=== PATIENT | male | born 1935 | race Caucasian/White ===

== ENCOUNTER → 2016-10-22 | Outpatient (CLI) | payer MEDICARE, OTHER ==
[~2016-10-22] MED LIST: /GLYB5TA OR; COLA100C2 OR; FURO40TA2 OR; GLUC500T OR; GLYB2.5T6 OR; LISI10TA4 OR; MOTR200T4 PO; NIFEDIPINE PO; PEPC20TA2 OR; PERC5TAB8 OR; PERC7.5T8 OR; PLAV75TA2 OR; SIMV40TA2 OR
== END ==
LOC: M WUC 11:56
PROVIDERS: ATTEND Emergency Medicine
DX: E11.40 Type 2 diabetes mellitus with diabetic neuropathy, unspecified (principal)

== ENCOUNTER → 2017-04-10 | Outpatient (REF) | payer MEDICARE, OTHER | LOC: M LAB REF 16:54 | PROVIDERS: ATTEND Emergency Medicine | DX: N30.01 Acute cystitis with hematuria (principal) ==

== ENCOUNTER → 2018-07-23 | Outpatient (REF) | payer MEDICARE, OTHER ==
[2018-07-23 13:45] LABS: BASO # 0.1 10^3/uL (0.0-0.2); BASO % 0.8 % (0.0-1.0); EOS # 0.5 10^3/uL (0.0-0.50); EOS % 5.1 % (0.0-3.0); HEMATOCRIT 33.3 % (42.0-52.0); HEMOGLOBIN 11.2 g/dl (13.5-17.5); LYMPH # 1.2 10^3/uL (1.5-4.5); LYMPH % 12.8 % (24.0-44.0); MEAN CORPUSCULAR HEMOGLOBIN 29.8 pg (27.0-33.0); MEAN CORPUSCULAR HGB CONC 33.6 g/dl (32.0-36.5); MEAN CORPUSCULAR VOLUME 88.6 fl (80.0-96.0); MONO # 0.7 10^3/uL (0.0-0.8); MONO % 7.3 % (0.0-5.0); NEUTROPHILS # 7.2 10^3/uL (1.8-7.7); NEUTROPHILS % 73.8 % (36.0-66.0); PLATELET COUNT, AUTOMATED 278 10^3/uL (150-450); RED BLOOD COUNT 3.76 10^6/uL (4.30-6.10); WHITE BLOOD COUNT 9.7 10^3/uL (4.0-10.0)
[2018-07-23 13:55] LABS: ALBUMIN 3.4 GM/DL (3.2-5.2); BILIRUBIN,TOTAL 0.6 MG/DL (0.2-1.0); CALCIUM LEVEL 9.6 MG/DL (8.8-10.2); CHOLESTEROL RISK RATIO 2.95 (<5); CREATININE FOR GFR 3.56 MG/DL (0.70-1.30); GLOMERULAR FILTRATION RATE 17.6 (>35); POTASSIUM SERUM 4.9 MEQ/L (3.5-5.1)
[2018-07-23 14:33] LABS: MAU/CREAT RATIO 97.5 MCG/MG (0.0-30.0)
[2018-07-24 21:39] LABS: HEMOGLOBIN A1c 6.3 %
== END ==
LOC: M LAB REF 12:59
PROVIDERS: ATTEND Physician Assistant
DX: N18.3 Chronic kidney disease, stage 3 (moderate) (principal); E11.40 Type 2 diabetes mellitus with diabetic neuropathy, unspecified; E78.2 Mixed hyperlipidemia; E11.22 Type 2 diabetes mellitus with diabetic chronic kidney disease

== ENCOUNTER 2018-08-22 11:27 | Inpatient (IN) | payer MEDICARE, OTHER ==
[~2018-08-22] VITALS: Ht 177.8 cm; Wt 74.5 kg
[2018-08-22] MEDS ORDERED: DONETAB5 PO (11:46)
[2018-08-22] MEDS ORDERED: SPIR-10 PO (11:46)
[2018-08-22] MEDS ORDERED: GABA-845 PO (11:46)
[2018-08-22] MEDS ORDERED: OMEP10CASR PO (11:46)
[2018-08-22] MEDS ORDERED: MINO2.5T PO ×2 (11:46→15:01)
[2018-08-22] MEDS ORDERED: QUET1TAB7 PO (11:46)
[2018-08-22] MEDS ORDERED: ROCA0.25 PO (11:46)
[2018-08-22] MEDS ORDERED: FLUO60TA6 PO (11:46)
[2018-08-22] MEDS ORDERED: SENS60TA PO (11:46)
--- NOTE | 2018-08-22 12:01 | REP ---
CT Head without contrast HISTORY: Trauma COMPARISON: None Areas of decreased attenuation are present in the periventricular white matter. This represents small-vessel ischemic disease. There is no intraparenchymal hemorrhage, acute infarct, mass or midline shift. The ventricular system and cortical sulci are dilated consistent with mild volume loss. There is no extra cerebral collection. There is no fracture. The visualized sinuses are clear. A metallic density is present overlying the left globe. IMPRESSION: Impression 1. Small vessel ischemic disease. 2. Mild volume loss. Electronically Signed by Martínez Graham MD 08/22/2018 11:53 A
[2018-08-22 12:18] LABS: BASO # 0.1 10^3/uL (0.0-0.2); BASO % 0.5 % (0.0-1.0); EOS # 0.4 10^3/uL (0.0-0.50); HEMATOCRIT 30.7 % (42.0-52.0); HEMOGLOBIN 10.2 g/dl (13.5-17.5); MEAN CORPUSCULAR HEMOGLOBIN 29.9 pg (27.0-33.0); MEAN CORPUSCULAR HGB CONC 33.2 g/dl (32.0-36.5); MONO # 0.9 10^3/uL (0.0-0.8); NEUTROPHILS # 6.8 10^3/uL (1.8-7.7); NEUTROPHILS % 74.2 % (36.0-66.0); PLATELET COUNT, AUTOMATED 231 10^3/uL (150-450); RED BLOOD COUNT 3.41 10^6/uL (4.30-6.10); WHITE BLOOD COUNT 9.2 10^3/uL (4.0-10.0)
[2018-08-22 12:47] LABS: CALCIUM LEVEL 12.2 MG/DL (8.8-10.2); CREATININE FOR GFR 4.18 MG/DL (0.70-1.30); FREE T4 1.13 NG/DL (0.76-1.46); GLOMERULAR FILTRATION RATE 14.6 (>35); MAGNESIUM LEVEL 2.5 MG/DL (1.8-2.4); MB/CK RELATIVE INDEX 2.03 (< OR =4); POTASSIUM SERUM 4.4 MEQ/L (3.5-5.1); THYROID STIMULATING HORMONE 1.44 uIU/ML (0.358-3.740); TROPONIN I 0.03 NG/ML (< 0.10)
[2018-08-22] MEDS ORDERED: NS 1,000 ML IV ONE (13:00)
[2018-08-22 13:15] LABS: ALBUMIN 3.2 GM/DL (3.2-5.2); BILIRUBIN,DIRECT 0.2 MG/DL (0.0-0.2); BILIRUBIN,TOTAL 0.5 MG/DL (0.2-1.0)
--- NOTE | 2018-08-22 14:02 | REP ---
Renal ultrasound: Comparison is 02/10/2014. The right kidney measures 10.6 of 5.0-5.3 cm. Left kidney measures 11.5 x 5 point 5.9 cm. The kidneys are normal size. Renal cortical echogenicity is unremarkable. There is no hydronephrosis. There are no renal calculi. There are no solid renal masses. There is a left renal lower pole 3.1 cm simple cyst. This is unchanged. Bladder ultrasound: Limited views of the bladder demonstrate no bladder wall mass or polyp. The prostate is enlarged measuring 6.5 x 5.1 x 5.1 cm. Impression: Left renal lower pole cyst, unchanged. Enlarged prostate. Electronically Signed by Vidal Gu MD 08/22/2018 01:54 P
[2018-08-22] MEDS ORDERED: ATOR40TA75 PO (15:01)
[2018-08-22] MEDS ORDERED: OMEP40CA2 PO (15:01)
[2018-08-22] MEDS ORDERED: FURO40TA2 PO (15:01)
[2018-08-22] MEDS ORDERED: FLUO40CA PO (15:01)
[2018-08-22] MEDS ORDERED: GABA-843 PO (15:01)
[2018-08-22] MEDS ORDERED: FERR1TAB8 PO (15:01)
[2018-08-22] MEDS ORDERED: CLOP75TA2 PO (15:01)
[2018-08-22] MEDS ORDERED: POTA10808 PO (15:01)
[2018-08-22] MEDS ORDERED: DRON2.5C11 PO (15:01)
[2018-08-22] MEDS ORDERED: NITR4TASL SL (15:01)
[2018-08-22] MEDS ORDERED: LISI-672 PO (15:01)
--- NOTE | 2018-08-22 15:19 | REP ---
CHEST, SINGLE VIEW: Single view of the chest is performed. No acute infiltrate or pulmonary edema is seen. The heart appears normal in size. There is mild calcification and tortuosity of the thoracic aorta. Mediastinal silhouette is otherwise unremarkable. IMPRESSION: No acute infiltrate. Electronically Signed by Vidal Pina MD 08/22/2018 08:12 P
[2018-08-22] MEDS ORDERED: QUEtiapine FUMARATE 25 MG TAB PO PRN (16:15)
[2018-08-22] MEDS ORDERED: NITROGLYCERIN 0.4 MG SUBL TABLET SL PRN (16:15)
[2018-08-22] MEDS: NS 1,000 ML IV SCH (16:30)
--- NOTE | 2018-08-22 17:14 | REP ---
LEFT KNEE, FOUR VIEWS: HISTORY: Pain. There is no acute fracture or dislocation. There is severe narrowing of the lateral knee joint space and mild narrowing of the medial knee joint space. There is moderate narrowing of the patellofemoral joint space. Osteophytes are present on the femur, tibia, and patella. Chondrocalcinosis is present. IMPRESSION: Degenerative change as described above. Electronically Signed by Martínez Graham MD 08/23/2018 08:13 A
--- NOTE | 2018-08-22 17:18 | ECGEPIP ---
Stationary ECG Study [facility] - ED Test Date: 2018-08-22 Pat Name: MERVIN HANCOCK Department: Room: - Gender: M Operating Room Registered Nurse: CEM : [id number] Requested By: Raine Bermeo Order Number: [id number] Reading MD: Williams Montgomery Measurements Intervals [place] Rate: 51 P: TN: 0 QRS: -67 QRSD: 121 T: 74 QT: 440 QTc: 408 Interpretive Statements SINUS BRADYCARDIA WITH FIRST DEGREE AV BLCOK LEFT AXIS DEVIATION POSSIBLE ANTERIOR MYOCARDIAL INFARCTION, OF INDETERMINATE AGE MODERATE INTRAVENTRICULAR CONDUCTION DELAY NO PRIORS FOR COMPARISON Electronically Signed On 08-22-2018 17:18:22 EST by Williams Montgomery
--- NOTE | 2018-08-22 18:10 | HPE ---
DATE OF ADMISSION: 08/22/2018 This is an 83-year-old male with past medical history of hypertension, hyperlipidemia, diabetes, BPH, chronic kidney disease (CKD) IV, advanced dementia who presents to the emergency room with frequent falls that he has been having over the past couple of weeks. The reason for bringing the patient to the emergency room (ER) today is because he actually fell and hit his head very hard on the bedroom door. There was no episode of syncope as per the family, just that the falls have been more frequent over the last few weeks. His appetite has also been very poor. They say that if they do not literally put the spoon or the straw in his mouth, he will not eat or drink. In the ER he had a CT of the head which was negative for any bleed; however, brain natriuretic peptide (BNP) showed the patient had acute kidney injury (LEXUS) on CKD with a creatinine of 4.2 and an elevated calcium of 12.2. He was started on intravenous (IV) fluids, and all the history I received was from his daughter. He is too advanced in his dementia to give any meaningful history. He will be admitted for further management. PAST MEDICAL HISTORY: 1. Hypertension. 2. Diabetes. 3. Hyperlipidemia. 4. Coronary artery disease status post percutaneous coronary intervention (PCI) in 2000 and 2001. 5. History of BPH. ALLERGIES: He has no known drug allergies. FAMILY HISTORY: Cannot be assessed. He is demented. SOCIAL HISTORY: Cannot be assessed. He is demented. HOME MEDICATIONS: - atorvastatin 40 mg orally daily - calcitriol 0.5 mcg orally daily - cinacalcet 60 mg orally five times a week - Plavix 75 mg orally daily - donepezil 5 mg orally daily - dronabinol 2.5 mg orally twice daily - ferrous sulfate 325 mg orally daily - fluoxetine 40 mg orally daily - Lasix 40 mg orally daily - gabapentin 300 mg orally daily - lisinopril 30 mg orally daily - minoxidil 5 mg orally twice daily - nitroglycerine 0.4 mg sublingual every 5 minutes times three for chest pain - omeprazole 40 mg orally daily - potassium citrate 10 mEq orally daily - quetiapine 25 mg orally daily as needed - Aldactone 25 mg orally daily REVIEW OF SYSTEMS: Cannot be assessed. Patient is demented. VITAL SIGNS: Blood pressure 176/74, heart rate is 52, regular, respiratory rate is 16, oxygen saturation is 98% on room air. HEAD: There is a small skin tear in the occiput of his head. Dry mucous membranes. NECK: Supple. No jugular venous distention (JVD). LUNGS: Clear to auscultation. HEART: S1, S2 audible. No murmurs appreciated. ABDOMEN: Soft. Positive bowel sounds. No pedal edema. SKIN: As mentioned, there is a skin abrasion noted in the back of his head. NEUROLOGIC: Patient is awake. He is not alert or oriented. LABORATORY DATA: Sodium 138, potassium 4.4, chloride 101, CO2 of 33, BUN 45, creatinine 4.18, glucose is 129, calcium is 12.2, magnesium 2.5. Troponin 0.03. Albumin is 3.2. TSH is 1.4. Intact PTH is 29. WBC is 9.2, hemoglobin is 10.2, hematocrit 30.7, platelets are 331,000. Renal ultrasound shows no evidence of hydronephrosis. CT of the head was negative for any bleed. Chest x-ray showed no acute infiltrates. IMPRESSION: 1. Falls. 2. Debility. 3. Acute kidney injury (LEXUS). 4. Hypercalcemia. PLAN: Patient will be admitted to the medical/surgical floor. Will continue intravenous (IV) fluids with normal saline at 100 an hour. The hypercalcemia etiology is undetermined at this time. I will send a 125-dihydroxy vitamin D level and monitor calcium trends. If it does not come down, will have to start calcitonin and get nephrology on board. Will have physical therapy (PT)/occupational therapy (OT) evaluate him in the morning for his falls. He will likely need rehabilitation to jail facility (SNF) placement. I am going to continue all his preadmission medication except for his diuretics and will continue his care in the medical/surgical floor.
[2018-08-22 18:40] VITALS: BP 156/71
[2018-08-22 21:00] VITALS: BP 131/64
[2018-08-22] MEDS: DRONABINOL 2.5 MG CAP (MARINOL) PO SCH (21:05)
[2018-08-22] MEDS: MINOXIDIL 2.5 MG TAB PO SCH (21:05)
[2018-08-22 21:15] LABS: TOTAL 25(OH) VITAMIN D 31.1 NG/ML (30.0-100.0)
[2018-08-22 21:30] VITALS: BP 151/85
[2018-08-23] MEDS: NS 1,000 ML IV SCH ×3 (02:30→21:26)
[2018-08-23 06:00] VITALS: BP 164/70
[2018-08-23 06:44] LABS: ALBUMIN 2.8 GM/DL (3.2-5.2); BILIRUBIN,TOTAL 0.5 MG/DL (0.2-1.0); CALCIUM LEVEL 10.5 MG/DL (8.8-10.2); CREATININE FOR GFR 3.88 MG/DL (0.70-1.30); GLOMERULAR FILTRATION RATE 15.9 (>35); POTASSIUM SERUM 4.2 MEQ/L (3.5-5.1); TOTAL PROTEIN 5.4 GM/DL (6.4-8.2)
[2018-08-23 08:45] LABS: HEMOGLOBIN 9.5 g/dl (13.5-17.5); MEAN CORPUSCULAR HEMOGLOBIN 30.3 pg (27.0-33.0); MEAN CORPUSCULAR HGB CONC 33.9 g/dl (32.0-36.5); MEAN CORPUSCULAR VOLUME 89.2 fl (80.0-96.0); PLATELET COUNT, AUTOMATED 222 10^3/uL (150-450); RED BLOOD COUNT 3.14 10^6/uL (4.30-6.10); WHITE BLOOD COUNT 8.4 10^3/uL (4.0-10.0)
[2018-08-23 09:28] LABS: CALCIUM LEVEL 10.9 MG/DL (8.8-10.2); CREATININE FOR GFR 3.88 MG/DL (0.70-1.30); GLOMERULAR FILTRATION RATE 15.9 (>35); MAGNESIUM LEVEL 2.2 MG/DL (1.8-2.4); POTASSIUM SERUM 4.3 MEQ/L (3.5-5.1)
[2018-08-23] MEDS: CLOPIDOGREL 75 MG TAB PO SCH (10:26)
[2018-08-23] MEDS: FERROUS SULFATE 325MG TAB PO SCH (10:26)
[2018-08-23] MEDS: FLUoxetine 20 MG CAP PO SCH (10:26)
[2018-08-23] MEDS: GABAPENTIN 300 MG CAP PO SCH (10:26)
[2018-08-23] MEDS: OMEPRAZOLE 20 MG CAP PO SCH (10:26)
[2018-08-23] MEDS: ATORVASTATIN 20 MG TAB PO SCH (10:27)
[2018-08-23] MEDS: MINOXIDIL 2.5 MG TAB PO SCH ×3 (13:59→21:26)
[2018-08-23] MEDS: DRONABINOL 2.5 MG CAP (MARINOL) PO SCH ×2 (13:59→21:25)
[2018-08-23 14:00] VITALS: BP 170/90
[2018-08-23] MEDS: CINACALCET 30 MG TAB (SENSIPAR) PO SCH (14:59)
[2018-08-23] MEDS: CALCITRIOL 0.25 MCG CAP (S0169) PO SCH (14:59)
[2018-08-23 17:17] VITALS: BP 140/80
[2018-08-23 22:00] VITALS: BP 147/82
--- NOTE | 2018-08-23 22:06 | IPN ---
DATE: 08/23/2018 SUBJECTIVE: The patient is seen and examined in the room with the patient's daughter and son-in-law. The patient is a poor historian, not fully oriented. Most of the questions obtained from the family member. The patient was found on the floor on the day of admission. The patient does not remember whether he had lost of consciousness or not at the moment. It was an unwitnessed event. According to the family members, the patient has been having worsening mental status, also frequent falls for the past three weeks. The patient has had multiple falls on a daily basis. The patient was noted to have very poor oral intake. OBJECTIVE: VITAL SIGNS: Temperature is 98.7, pulse of 88, respirations 18, blood pressure 164/70, pulse oximetry 97% on room air. GENERAL: The patient is alert and awake. The patient is not oriented. HEENT: There is some marked trauma on the top of the skull. No active bleeding. No open wounds. There is no erythema on the infected site. CARDIOVASCULAR: Positive S1, S2. Regular rate. LUNGS: Clear to auscultation bilaterally. ABDOMEN: Soft, nontender, not distended. Bowel sounds are present. EXTREMITIES: No edema appreciated. LABORATORY DATA: White blood count (WBC) 8.4, hemoglobin 11.5, hematocrit 28, platelet count is 222. Sodium is 141, potassium is 4.3, chloride is 106, carbon dioxide 29, BUN is 45, creatinine is 3.8. Glomerular filtration rate (GFR) is 15.9. Fasting glucose is 91. Calcium is 10.9. Magnesium is 2.2. ASSESSMENT AND PLAN: 1. Acute on chronic mental status change. The patient do have very advanced dementia according to the family member. The patient had started to demonstrate rapid mental deterioration in the last three weeks, which resulted in frequent falls. Will continue to look for possible correctable causes. 2. Acute kidney injury. Clinically, the patient demonstrates significant dehydration based on the history given by family member and clinical presentations. The patient's oriented has been extremely poor. Will start the patient on IV fluid up to moderate kidney function. At the baseline, the patient has chronic kidney disease (CKD) stage IV. 3. Diabetes. Currently, the patient does not demonstrate any significant hyperglycemia. Will continue to monitor the patient. The patient do have a very poor oral intake at this moment. 4. Benign prostatic hypertrophy (BPH). 5. Hypertension due to acute on chronic renal failure. The patient is on lisinopril, spironolactone, Lasix will be on hold. 6. Deep vein thrombosis (DVT) prophylaxis on DIANNE compression. MTDD
[2018-08-24 06:00] VITALS: BP 144/78
[2018-08-24 06:04] LABS: HEMATOCRIT 28.2 % (42.0-52.0); HEMOGLOBIN 9.6 g/dl (13.5-17.5); MEAN CORPUSCULAR HEMOGLOBIN 30.1 pg (27.0-33.0); MEAN CORPUSCULAR VOLUME 88.4 fl (80.0-96.0); PLATELET COUNT, AUTOMATED 211 10^3/uL (150-450); RED BLOOD COUNT 3.19 10^6/uL (4.30-6.10); WHITE BLOOD COUNT 8.4 10^3/uL (4.0-10.0)
[2018-08-24 06:37] LABS: CALCIUM LEVEL 10.4 MG/DL (8.8-10.2); CREATININE FOR GFR 3.51 MG/DL (0.70-1.30); GLOMERULAR FILTRATION RATE 17.9 (>35); MAGNESIUM LEVEL 2.1 MG/DL (1.8-2.4)
[2018-08-24] MEDS: CALCITRIOL 0.25 MCG CAP (S0169) PO SCH (08:21)
[2018-08-24] MEDS: FERROUS SULFATE 325MG TAB PO SCH (08:21)
[2018-08-24] MEDS: FLUoxetine 20 MG CAP PO SCH (08:21)
[2018-08-24] MEDS: OMEPRAZOLE 20 MG CAP PO SCH (08:21)
[2018-08-24] MEDS: DRONABINOL 2.5 MG CAP (MARINOL) PO SCH ×2 (08:21→20:30)
[2018-08-24] MEDS: GABAPENTIN 300 MG CAP PO SCH (08:21)
[2018-08-24] MEDS: CLOPIDOGREL 75 MG TAB PO SCH (08:21)
[2018-08-24] MEDS: ATORVASTATIN 20 MG TAB PO SCH (08:21)
[2018-08-24] MEDS: CINACALCET 30 MG TAB (SENSIPAR) PO SCH (08:21)
[2018-08-24] MEDS: MINOXIDIL 2.5 MG TAB PO SCH ×2 (08:22→20:39)
[2018-08-24] MEDS: NS 1,000 ML IV SCH ×2 (08:30→20:40)
[2018-08-24 14:00] VITALS: BP 156/88
--- NOTE | 2018-08-24 19:39 | IPNPDOC ---
Text Note Date of Service The patient was seen on 08/24/18. NOTE SUBJECTIVE: The patient is seen and examined in the room with the patient's daughter and son-in-law. The patient is not fully oriented. Patient has no appetite. According to family members, patient requires monitoring and feeding during meal time otherwise patient will not eat meals by himself. They understand patient needs custodial in the rat ex[facility]. OBJECTIVE: VITAL SIGNS: Listed below. GENERAL: The patient is alert and awake. The patient is not oriented. HEENT: No active bleeding. No open wounds. CARDIOVASCULAR: Positive S1, S2. Regular rate. LUNGS: Clear to auscultation bilaterally. ABDOMEN: Soft, nontender, not distended. Bowel sounds are present. EXTREMITIES: No edema appreciated. LABORATORY DATA: Listed below. ASSESSMENT AND PLAN: #. Acute on chronic mental status change. - At baseline, patient has very advanced dementia according to the family member. The patient has demonstrated rapid mental deterioration in the last three weeks, which resulted in frequent falls. - UA is negative. CT head is negative. Will continue to look for possible correctable causes. #. Acute kidney injury. - Clinically, the patient demonstrates significant dehydration based on the history given by family member. The patient's oriented has been extremely poor. Will start the patient on IV fluid. At the baseline, the patient has chronic kidney disease (CKD) stage IV. #. Diabetes. Currently, the patient does not demonstrate any significant hyperglycemia. Will continue to monitor the patient. The patient do have a very poor oral intake at this moment. #. Benign prostatic hypertrophy (BPH). #. Hypertension due to acute on chronic renal failure. The patient is on lisinopril, spironolactone, Lasix will be on hold. #. Deep vein thrombosis (DVT) prophylaxis on DIANNE compression. VS,Fishbone, I+O VS, Fishbone, I+O Laboratory Tests 08/24/18 05:50 Red Blood Count 3.19 L, Mean Corpuscular Volume 88.4, Mean Corpuscular Hemoglobin 30.1, Mean Corpuscular Hemoglobin Concent 34.0, Red Cell Distribution Width 12.9, Calcium Level 10.4 H Vital Signs Date Time Temp Pulse Resp B/P (MAP) Pulse Ox O2 Delivery O2 Flow Rate FiO2 08/24/18 14:00 97.7 66 18 156/88 (110) 92 2/13/19 11:43 Room Air I&O- Last 24 Hours up to 6 AM 08/24/18 06:00 Intake Total 1710 ml Output Total 2050 ml Balance -340 ml CORINNE MEZA DO Aug 24, 2018 19:39
[2018-08-24 22:00] VITALS: BP 188/84
[2018-08-25] VITALS: BP 175/75
[2018-08-25 06:00] VITALS: BP 178/88
[2018-08-25 06:08] LABS: HEMATOCRIT 26.4 % (42.0-52.0); HEMOGLOBIN 9.1 g/dl (13.5-17.5); MEAN CORPUSCULAR HEMOGLOBIN 29.8 pg (27.0-33.0); MEAN CORPUSCULAR HGB CONC 34.5 g/dl (32.0-36.5); MEAN CORPUSCULAR VOLUME 86.6 fl (80.0-96.0); PLATELET COUNT, AUTOMATED 231 10^3/uL (150-450); RED BLOOD COUNT 3.05 10^6/uL (4.30-6.10); WHITE BLOOD COUNT 8.1 10^3/uL (4.0-10.0)
[2018-08-25 06:35] LABS: CALCIUM LEVEL 10.1 MG/DL (8.8-10.2); CREATININE FOR GFR 3.13 MG/DL (0.70-1.30); GLOMERULAR FILTRATION RATE 20.4 (>35); MAGNESIUM LEVEL 1.8 MG/DL (1.8-2.4); POTASSIUM SERUM 3.7 MEQ/L (3.5-5.1)
[2018-08-25] MEDS: CALCITRIOL 0.25 MCG CAP (S0169) PO SCH (09:03)
[2018-08-25] MEDS: ATORVASTATIN 20 MG TAB PO SCH (09:04)
[2018-08-25] MEDS: FLUoxetine 20 MG CAP PO SCH (09:04)
[2018-08-25] MEDS: GABAPENTIN 300 MG CAP PO SCH (09:04)
[2018-08-25] MEDS: CLOPIDOGREL 75 MG TAB PO SCH (09:04)
[2018-08-25] MEDS: OMEPRAZOLE 20 MG CAP PO SCH (09:04)
[2018-08-25] MEDS: FERROUS SULFATE 325MG TAB PO SCH (09:04)
[2018-08-25] MEDS: MINOXIDIL 2.5 MG TAB PO SCH ×2 (09:05→21:30)
[2018-08-25] MEDS: DRONABINOL 2.5 MG CAP (MARINOL) PO SCH ×2 (09:05→21:30)
[2018-08-25] MEDS: NS 0.45% 1,000 ML IV SCH ×3 (10:31→21:30)
[2018-08-25 14:00] VITALS: BP 150/74
--- NOTE | 2018-08-25 18:51 | IPNPDOC ---
Text Note Date of Service The patient was seen on 08/25/18. NOTE SUBJECTIVE: The patient is seen and examined in the room. Patient knows he is in hospital but he could not recall the name of hospital, date or name of president. No acute event is reported. OBJECTIVE: VITAL SIGNS: Listed below. GENERAL: The patient is alert and awake. Comfortable. Not oriented. HEENT: No active bleeding. No open wounds. CARDIOVASCULAR: Positive S1, S2. Regular rate. LUNGS: Clear to auscultation bilaterally. ABDOMEN: Soft, nontender, not distended. Bowel sounds are present. EXTREMITIES: No edema appreciated. LABORATORY DATA: Listed below. ASSESSMENT AND PLAN: #. Acute on chronic mental status change. - At baseline, patient has very advanced dementia according to the family members. The patient has demonstrated rapid mental deterioration in the last three weeks prior to admission, which resulted in frequent falls. - UA is negative. CT head is negative. Will continue to look for possible correctable causes. - Family members wish for jail placement. #. Acute kidney injury on chronic kidney disease. - At the baseline, the patient has chronic kidney disease (CKD) stage IV. - The patient demonstrates significant dehydration based on the history given by family member and clinical examination. The patient's oriented has been extremely poor. On IV fluid. #. Diabetes. - No significant hyperglycemia. The patient do have a very poor oral intake at this moment. - Will be on sliding scale, consistent carbohydrate diet, hypoglycemia protocol. #. Benign prostatic hypertrophy (BPH). #. Hypertension - Due to acute on chronic renal failure. Lisinopril, spironolactone and Lasix are on hold. #. Deep vein thrombosis (DVT) prophylaxis on DIANNE compression. VS,Fishbone, I+O VS, Fishbone, I+O Laboratory Tests 08/25/18 05:40 Red Blood Count 3.05 L, Mean Corpuscular Volume 86.6, Mean Corpuscular Hemoglobin 29.8, Mean Corpuscular Hemoglobin Concent 34.5, Red Cell Distribution Width 12.9, Calcium Level 10.1 Vital Signs Date Time Temp Pulse Resp B/P (MAP) Pulse Ox O2 Delivery O2 Flow Rate FiO2 08/25/18 14:00 97.8 58 20 150/74 (99) 96 08/22/18 11:43 Room Air I&O- Last 24 Hours up to 6 AM 2/16/19 06:00 Intake Total 1840 ml Output Total 500 ml Balance 1340 ml CORINNE MEZA DO Aug 25, 2018 18:51
[2018-08-25] MEDS ORDERED: GLUCOSE 4 GM CHEW TABLET PO PRN (19:00)
[2018-08-25] MEDS ORDERED: GLUCAGON FOR INJ 1 MG VIAL (J1610) SC PRN (19:00)
[2018-08-25] MEDS ORDERED: DEXTROSE 50% 50 ML SYRINGE IV PRN (19:00)
[2018-08-25] MEDS: HumaLOG INSULIN (NovoLOG) PER UNIT SC SCH (21:00)
[2018-08-25 22:00] VITALS: BP 168/60
[2018-08-26 06:00] VITALS: BP 164/76
[2018-08-26 07:25] LABS: HEMATOCRIT 24.4 % (42.0-52.0); HEMOGLOBIN 8.3 g/dl (13.5-17.5); MEAN CORPUSCULAR HEMOGLOBIN 29.7 pg (27.0-33.0); MEAN CORPUSCULAR VOLUME 87.5 fl (80.0-96.0); PLATELET COUNT, AUTOMATED 211 10^3/uL (150-450); RED BLOOD COUNT 2.79 10^6/uL (4.30-6.10); WHITE BLOOD COUNT 6.7 10^3/uL (4.0-10.0)
[2018-08-26 07:52] LABS: CALCIUM LEVEL 9.8 MG/DL (8.8-10.2); GLOMERULAR FILTRATION RATE 21.4 (>35); MAGNESIUM LEVEL 1.8 MG/DL (1.8-2.4)
[2018-08-26] MEDS: CALCITRIOL 0.25 MCG CAP (S0169) PO SCH (08:35)
[2018-08-26] MEDS: GABAPENTIN 300 MG CAP PO SCH (08:36)
[2018-08-26] MEDS: DRONABINOL 2.5 MG CAP (MARINOL) PO SCH ×2 (08:36→21:22)
[2018-08-26] MEDS: FERROUS SULFATE 325MG TAB PO SCH (08:36)
[2018-08-26] MEDS: MINOXIDIL 2.5 MG TAB PO SCH ×2 (08:36→21:22)
[2018-08-26] MEDS: FLUoxetine 20 MG CAP PO SCH (08:36)
[2018-08-26] MEDS: CLOPIDOGREL 75 MG TAB PO SCH (08:36)
[2018-08-26] MEDS: OMEPRAZOLE 20 MG CAP PO SCH (08:36)
[2018-08-26] MEDS: ATORVASTATIN 20 MG TAB PO SCH (08:37)
[2018-08-26] MEDS: HumaLOG INSULIN (NovoLOG) PER UNIT SC SCH ×4 (08:37→21:00)
[2018-08-26] MEDS: AMOXICILLIN 500 MG CAP PO SCH ×2 (10:44→21:22)
[2018-08-26 14:00] VITALS: BP 142/71
--- NOTE | 2018-08-26 16:57 | IPNPDOC ---
Text Note Date of Service The patient was seen on 08/26/18. NOTE SUBJECTIVE: The patient is seen and examined in the room with his daughter. Patient remembers the name of hospital but he does not remember the year and month and name of president. He is more awake and alert. Oral intake is still poor. OBJECTIVE: VITAL SIGNS: Listed below. GENERAL: The patient is alert and awake. Comfortable. Not oriented. HEENT: No active bleeding. No open wounds. CARDIOVASCULAR: Positive S1, S2. Regular rate. LUNGS: Clear to auscultation bilaterally. ABDOMEN: Soft, nontender, not distended. Bowel sounds are present. EXTREMITIES: No edema appreciated. LABORATORY DATA: Listed below. ASSESSMENT AND PLAN: #. Acute on chronic mental status change. - At baseline, patient has very advanced dementia according to the family members. The patient has demonstrated rapid mental deterioration in the last three weeks prior to admission, which resulted in frequent falls. - CT head is negative. Urine culture is positive for Aerococcus Urinae. Start antibiotic. - Family members wish for prison placement. #. Acute kidney injury on chronic kidney disease. - At the baseline, the patient has chronic kidney disease (CKD) stage IV. - The patient demonstrates significant dehydration based on the history given by family member and clinical examination. The patient's oriented has been extremely poor. On IV fluid. #. Diabetes. - No significant hyperglycemia. The patient do have a very poor oral intake at this moment. - Will be on sliding scale, consistent carbohydrate diet, hypoglycemia protocol. #. Benign prostatic hypertrophy (BPH). #. Hypertension - Due to acute on chronic renal failure. Lisinopril, spironolactone and Lasix are on hold. #. Deep vein thrombosis (DVT) prophylaxis on DIANNE compression. VS,Fishbone, I+O VS, Fishbone, I+O Laboratory Tests 08/26/18 06:46 Calcium Level 9.8 08/26/18 06:47 Red Blood Count 2.79 L, Mean Corpuscular Volume 87.5, Mean Corpuscular Hemoglobin 29.7, Mean Corpuscular Hemoglobin Concent 34.0, Red Cell Distribution Width 13.2 Vital Signs Date Time Temp Pulse Resp B/P (MAP) Pulse Ox O2 Delivery O2 Flow Rate FiO2 08/26/18 14:00 98.3 50 16 142/71 (94) 97 08/22/18 11:43 Room Air I&O- Last 24 Hours up to 6 AM 08/26/18 06:00 Intake Total 2040 ml Output Total 0 ml Balance 2040 ml CORINNE MEZA DO Aug 26, 2018 16:57
[2018-08-26] MEDS: NS 0.45% 1,000 ML IV SCH (17:18)
[2018-08-26 22:00] VITALS: BP 170/68
[2018-08-27] MEDS: NS 0.45% 1,000 ML IV SCH ×3 (00:15→18:18)
[2018-08-27 06:00] VITALS: BP 168/80
[2018-08-27 06:44] LABS: HEMATOCRIT 23.8 % (42.0-52.0); HEMOGLOBIN 8.2 g/dl (13.5-17.5); MEAN CORPUSCULAR HEMOGLOBIN 29.7 pg (27.0-33.0); MEAN CORPUSCULAR HGB CONC 34.5 g/dl (32.0-36.5); MEAN CORPUSCULAR VOLUME 86.2 fl (80.0-96.0); PLATELET COUNT, AUTOMATED 216 10^3/uL (150-450); RED BLOOD COUNT 2.76 10^6/uL (4.30-6.10); WHITE BLOOD COUNT 6.8 10^3/uL (4.0-10.0)
[2018-08-27 07:05] LABS: CALCIUM LEVEL 9.6 MG/DL (8.8-10.2); CREATININE FOR GFR 2.65 MG/DL (0.70-1.30); GLOMERULAR FILTRATION RATE 24.7 (>35); MAGNESIUM LEVEL 1.9 MG/DL (1.8-2.4); POTASSIUM SERUM 3.6 MEQ/L (3.5-5.1)
[2018-08-27] MEDS: HumaLOG INSULIN (NovoLOG) PER UNIT SC SCH ×4 (07:30→20:36)
[2018-08-27] MEDS: OMEPRAZOLE 20 MG CAP PO SCH (09:22)
[2018-08-27] MEDS: ATORVASTATIN 20 MG TAB PO SCH (09:22)
[2018-08-27] MEDS: CLOPIDOGREL 75 MG TAB PO SCH (09:22)
[2018-08-27] MEDS: CINACALCET 30 MG TAB (SENSIPAR) PO SCH (09:23)
[2018-08-27] MEDS: AMOXICILLIN 500 MG CAP PO SCH ×2 (09:23→20:35)
[2018-08-27] MEDS: FLUoxetine 20 MG CAP PO SCH (09:23)
[2018-08-27] MEDS: FERROUS SULFATE 325MG TAB PO SCH (09:23)
[2018-08-27] MEDS: GABAPENTIN 300 MG CAP PO SCH (09:23)
[2018-08-27] MEDS: CALCITRIOL 0.25 MCG CAP (S0169) PO SCH (09:23)
[2018-08-27] MEDS: DRONABINOL 2.5 MG CAP (MARINOL) PO SCH ×2 (09:26→20:35)
[2018-08-27] MEDS: MINOXIDIL 2.5 MG TAB PO SCH ×2 (09:26→20:36)
--- NOTE | 2018-08-27 13:59 | IPNPDOC ---
Text Note Date of Service The patient was seen on 08/27/18. NOTE SUBJECTIVE: The patient is seen and examined in the room with his daughter. Patient is more awake and alert. Patient remember the place and the date but he could not remember the name of president. His oral intake is still not optimal. OBJECTIVE: VITAL SIGNS: Listed below. GENERAL: The patient is alert and awake. Comfortable. Not oriented. HEENT: No active bleeding. No open wounds. CARDIOVASCULAR: Positive S1, S2. Regular rate. LUNGS: Clear to auscultation bilaterally. ABDOMEN: Soft, nontender, not distended. Bowel sounds are present. EXTREMITIES: No edema appreciated. LABORATORY DATA: Listed below. ASSESSMENT AND PLAN: #. Acute on chronic mental status change. - At baseline, patient has very advanced dementia according to the family members. The patient has demonstrated rapid mental deterioration in the last three weeks prior to admission, which resulted in frequent falls. - CT head is negative. Urine culture is positive for Aerococcus Urinae. Start antibiotic. - Family members wish for [facility] placement. #. Acute kidney injury on chronic kidney disease. - At the baseline, the patient has chronic kidney disease (CKD) stage IV. - The patient demonstrates significant dehydration based on the history given by family member and clinical examination. Continue IV fluid. Renal function is improving. #. Diabetes. - No significant hyperglycemia. The patient do have a very poor oral intake at this moment. - Will be on sliding scale, consistent carbohydrate diet, hypoglycemia protocol. #. Benign prostatic hypertrophy (BPH). #. Hypertension - Due to acute on chronic renal failure. Lisinopril, spironolactone and Lasix are on hold. #. Deep vein thrombosis (DVT) prophylaxis on DIANNE compression. VS,Fishbone, I+O VS, Fishbone, I+O Laboratory Tests 08/27/18 06:13 Red Blood Count 2.76 L, Mean Corpuscular Volume 86.2, Mean Corpuscular Hemoglobin 29.7, Mean Corpuscular Hemoglobin Concent 34.5, Red Cell Distribution Width 13.2, Calcium Level 9.6 Vital Signs Date Time Temp Pulse Resp B/P (MAP) Pulse Ox O2 Delivery O2 Flow Rate FiO2 08/27/18 09:26 142/68 08/27/18 06:00 97.7 58 20 98 08/22/18 11:43 Room Air I&O- Last 24 Hours up to 6 AM 08/27/18 06:00 Intake Total 2280 ml Output Total 550 ml Balance 1730 ml CORINNE MEZA DO Aug 27, 2018 13:59
[2018-08-27 14:00] VITALS: BP 139/64
[2018-08-27 22:00] VITALS: BP 175/78
[2018-08-28] MEDS: NS 0.45% 1,000 ML IV SCH (05:17)
[2018-08-28 06:00] VITALS: BP 180/80
[2018-08-28 06:52] LABS: HEMATOCRIT 24.4 % (42.0-52.0); HEMOGLOBIN 8.5 g/dl (13.5-17.5); MEAN CORPUSCULAR HEMOGLOBIN 30.2 pg (27.0-33.0); MEAN CORPUSCULAR HGB CONC 34.8 g/dl (32.0-36.5); MEAN CORPUSCULAR VOLUME 86.8 fl (80.0-96.0); PLATELET COUNT, AUTOMATED 217 10^3/uL (150-450); RED BLOOD COUNT 2.81 10^6/uL (4.30-6.10); WHITE BLOOD COUNT 7.2 10^3/uL (4.0-10.0)
[2018-08-28 07:14] LABS: CALCIUM LEVEL 9.5 MG/DL (8.8-10.2); CREATININE FOR GFR 2.55 MG/DL (0.70-1.30); GLOMERULAR FILTRATION RATE 25.9 (>35); MAGNESIUM LEVEL 1.9 MG/DL (1.8-2.4); POTASSIUM SERUM 3.9 MEQ/L (3.5-5.1)
[2018-08-28] MEDS: HumaLOG INSULIN (NovoLOG) PER UNIT SC SCH ×4 (07:30→21:00)
[2018-08-28] MEDS: FERROUS SULFATE 325MG TAB PO SCH (08:33)
[2018-08-28] MEDS: DRONABINOL 2.5 MG CAP (MARINOL) PO SCH ×2 (08:33→21:43)
[2018-08-28] MEDS: GABAPENTIN 300 MG CAP PO SCH (08:34)
[2018-08-28] MEDS: OMEPRAZOLE 20 MG CAP PO SCH (08:34)
[2018-08-28] MEDS: CINACALCET 30 MG TAB (SENSIPAR) PO SCH (08:34)
[2018-08-28] MEDS: FLUoxetine 20 MG CAP PO SCH (08:34)
[2018-08-28] MEDS: CALCITRIOL 0.25 MCG CAP (S0169) PO SCH (08:34)
[2018-08-28] MEDS: ATORVASTATIN 20 MG TAB PO SCH (08:37)
[2018-08-28] MEDS: MINOXIDIL 2.5 MG TAB PO SCH ×2 (08:37→21:43)
[2018-08-28] MEDS: AMOXICILLIN 500 MG CAP PO SCH ×2 (08:37→21:42)
[2018-08-28] MEDS: CLOPIDOGREL 75 MG TAB PO SCH (08:37)
[2018-08-28 08:45] VITALS: BP 184/78
[2018-08-28] MEDS: MEGESTROL 40 MG TAB PO SCH (08:57)
[2018-08-28] MEDS: **hydrALAZINE HCL** 25 MG TAB PO SCH ×3 (08:57→21:43)
[2018-08-28 10:45] VITALS: BP 151/84
[2018-08-28 14:00] VITALS: BP 158/62
--- NOTE | 2018-08-28 16:27 | IPNPDOC ---
Subjective Date Seen The patient was seen on 08/28/18. Subjective Chief Complaint/HPI Patient seen and examined at the bedside. No acute overnight events noted. Objective Physical Examination General Exam: Positive: Alert, Cooperative, No Acute Distress ENT Exam: Positive: Atraumatic, Mucous membr. moist/pink Neck Exam: Negative: JVD Chest Exam: Positive: Clear to auscultation, Normal air movement Heart Exam: Positive: Rate Normal, Normal S1, Normal S2 Abdomen Exam: Positive: Soft; Negative: Tenderness Extremity Exam: Negative: Tenderness, Swelling Assessment /Plan Plan/VTE VTE Prophylaxis Ordered?: Yes Plan Dementia, advanced CT head is negative Urine culture is positive for Aerococcus Urinae--On amoxicillin Family members state that the patient's current mentation is back to baseline after Abx treatment Acute kidney injury on Chronic kidney disease stage IV, resolved Serum Cr back to baseline Diabetes. Cont on sliding scale, consistent carbohydrate diet, hypoglycemia protocol. Anxiety/Depression Cont Seroquel, Prozac GERD Cont PPI Hypertension Cont current regimen Dyslipidemia Cont Statin Decreased Appetite Cont Megace, Marinol PO intake encouraged Deep vein thrombosis (DVT) prophylaxis SCDs/TEDs Dispo--PFS on board VS, I&O, 24H, Fishbone Vital Signs/I&O Vital Signs Date Time Temp Pulse Resp B/P (MAP) Pulse Ox O2 Delivery O2 Flow Rate FiO2 08/28/18 14:14 158/62 08/28/18 14:00 98.6 60 16 95 08/22/18 11:43 Room Air I&O- Last 24 Hours up to 6 AM 08/28/18 06:00 Intake Total 1860 ml Output Total 400 ml Balance 1460 ml Laboratory Data 24H LABS Laboratory Tests 2 08/27/18 16:48: Bedside Glucose (Misc Panel) 140H 08/27/18 20:11: Bedside Glucose (Misc Panel) 165H 08/28/18 06:21: Nucleated Red Blood Cells % (auto) 0.0, Anion Gap 7L, Glomerular Filtration Rate 25.9L, Blood Urea Nitrogen 26H, Creatinine 2.55H, Sodium Level 141, Potassium Level 3.9, Chloride Level 111H, Carbon Dioxide Level 23, Calcium Level 9.5, Magnesium Level 1.9 CBC/BMP Laboratory Tests 08/28/18 06:21 Red Blood Count 2.81 L, Mean Corpuscular Volume 86.8, Mean Corpuscular Hemoglobin 30.2, Mean Corpuscular Hemoglobin Concent 34.8, Red Cell Distribution Width 13.1, Calcium Level 9.5 Microbiology Microbiology 08/24/18 Urine Culture - Final, Complete Aerococcus Urinae MELDOY YOON MD Aug 28, 2018 16:27
[2018-08-28 22:00] VITALS: BP 179/89
[2018-08-29] MEDS: **hydrALAZINE HCL** 25 MG TAB PO SCH ×3 (05:58→21:45)
[2018-08-29 06:00] VITALS: BP 182/70
[2018-08-29 06:30] LABS: HEMOGLOBIN 8.7 g/dl (13.5-17.5); MEAN CORPUSCULAR HEMOGLOBIN 30.2 pg (27.0-33.0); MEAN CORPUSCULAR HGB CONC 34.8 g/dl (32.0-36.5); MEAN CORPUSCULAR VOLUME 86.8 fl (80.0-96.0); PLATELET COUNT, AUTOMATED 239 10^3/uL (150-450); RED BLOOD COUNT 2.88 10^6/uL (4.30-6.10); WHITE BLOOD COUNT 7.1 10^3/uL (4.0-10.0)
[2018-08-29 06:49] LABS: CALCIUM LEVEL 9.4 MG/DL (8.8-10.2); CREATININE FOR GFR 2.43 MG/DL (0.70-1.30); GLOMERULAR FILTRATION RATE 27.3 (>35); MAGNESIUM LEVEL 1.7 MG/DL (1.8-2.4); POTASSIUM SERUM 3.6 MEQ/L (3.5-5.1)
[2018-08-29] MEDS: AMOXICILLIN 500 MG CAP PO SCH ×2 (08:21→21:45)
[2018-08-29] MEDS: HumaLOG INSULIN (NovoLOG) PER UNIT SC SCH ×4 (08:21→21:00)
[2018-08-29] MEDS: CINACALCET 30 MG TAB (SENSIPAR) PO SCH (08:21)
[2018-08-29] MEDS: FLUoxetine 20 MG CAP PO SCH (08:22)
[2018-08-29] MEDS: MEGESTROL 40 MG TAB PO SCH (08:22)
[2018-08-29] MEDS: OMEPRAZOLE 20 MG CAP PO SCH (08:22)
[2018-08-29] MEDS: CALCITRIOL 0.25 MCG CAP (S0169) PO SCH (08:22)
[2018-08-29] MEDS: CLOPIDOGREL 75 MG TAB PO SCH (08:22)
[2018-08-29] MEDS: FERROUS SULFATE 325MG TAB PO SCH (08:22)
[2018-08-29] MEDS: DRONABINOL 2.5 MG CAP (MARINOL) PO SCH ×2 (08:22→21:44)
[2018-08-29] MEDS: MINOXIDIL 2.5 MG TAB PO SCH ×2 (08:22→21:45)
[2018-08-29] MEDS: GABAPENTIN 300 MG CAP PO SCH (08:22)
[2018-08-29] MEDS: ATORVASTATIN 20 MG TAB PO SCH (08:23)
[2018-08-29] MEDS: amLODIPine 5 MG TAB PO SCH (10:24)
[2018-08-29 14:00] VITALS: BP 149/66
--- NOTE | 2018-08-29 17:01 | IPNPDOC ---
Subjective Date Seen The patient was seen on 08/29/18. Subjective Chief Complaint/HPI No acute overnight events. Objective Physical Examination General Exam: Positive: Alert, Cooperative, No Acute Distress ENT Exam: Positive: Atraumatic, Mucous membr. moist/pink Neck Exam: Negative: JVD Chest Exam: Positive: Clear to auscultation, Normal air movement Heart Exam: Positive: Rate Normal, Normal S1, Normal S2 Abdomen Exam: Positive: Soft; Negative: Tenderness Extremity Exam: Negative: Tenderness, Swelling Assessment /Plan Plan/VTE VTE Prophylaxis Ordered?: Yes Plan Dementia, advanced CT head is negative Urine culture is positive for Aerococcus Urinae--On amoxicillin Family members state that the patient's current mentation is back to baseline after Abx treatment Acute kidney injury on Chronic kidney disease stage IV, resolved Serum Cr back to baseline Diabetes. Cont on sliding scale, consistent carbohydrate diet, hypoglycemia protocol. Anxiety/Depression Cont Seroquel, Prozac GERD Cont PPI Hypertension Cont current regimen Dyslipidemia Cont Statin Decreased Appetite Cont Megace, Marinol PO intake encouraged Deep vein thrombosis (DVT) prophylaxis SCDs/TEDs Dispo--PFS on board VS, I&O, 24H, Fishbone Vital Signs/I&O Vital Signs Date Time Temp Pulse Resp B/P (MAP) Pulse Ox O2 Delivery O2 Flow Rate FiO2 08/29/18 14:20 149/66 08/29/18 14:00 98.8 58 18 99 I&O- Last 24 Hours up to 6 AM 08/29/18 06:00 Intake Total 1280 ml Balance 1280 ml Laboratory Data 24H LABS Laboratory Tests 2 08/28/18 17:03: Bedside Glucose (Misc Panel) 128H 08/28/18 21:08: Bedside Glucose (Misc Panel) 172H 08/29/18 05:42: Nucleated Red Blood Cells % (auto) 0.0, Anion Gap 5L, Glomerular Filtration Rate 27.3L, Blood Urea Nitrogen 23H, Creatinine 2.43H, Sodium Level 141, Potassium Level 3.6, Chloride Level 113H, Carbon Dioxide Level 23, Calcium Level 9.4, Magnesium Level 1.7L 08/29/18 11:44: Bedside Glucose (Misc Panel) 85 08/29/18 16:25: Bedside Glucose (Misc Panel) 114H CBC/BMP Laboratory Tests 08/29/18 05:42 Red Blood Count 2.88 L, Mean Corpuscular Volume 86.8, Mean Corpuscular Hemoglobin 30.2, Mean Corpuscular Hemoglobin Concent 34.8, Red Cell Distribution Width 13.2, Calcium Level 9.4 Microbiology Microbiology 08/24/18 Urine Culture - Final, Complete Aerococcus Urinae MELODY YOON MD Aug 29, 2018 17:00
[2018-08-29 22:00] VITALS: BP 146/66
[2018-08-30] MEDS: **hydrALAZINE HCL** 25 MG TAB PO SCH ×3 (05:44→22:48)
[2018-08-30 06:00] VITALS: BP 178/76
[2018-08-30 06:20] LABS: HEMOGLOBIN 8.7 g/dl (13.5-17.5); MEAN CORPUSCULAR HEMOGLOBIN 29.6 pg (27.0-33.0); MEAN CORPUSCULAR HGB CONC 34.8 g/dl (32.0-36.5); PLATELET COUNT, AUTOMATED 239 10^3/uL (150-450); RED BLOOD COUNT 2.94 10^6/uL (4.30-6.10); WHITE BLOOD COUNT 7.6 10^3/uL (4.0-10.0)
[2018-08-30 06:33] LABS: CALCIUM LEVEL 9.3 MG/DL (8.8-10.2); CREATININE FOR GFR 2.37 MG/DL (0.70-1.30); GLOMERULAR FILTRATION RATE 28.1 (>35); MAGNESIUM LEVEL 1.8 MG/DL (1.8-2.4); POTASSIUM SERUM 3.5 MEQ/L (3.5-5.1)
[2018-08-30] MEDS: HumaLOG INSULIN (NovoLOG) PER UNIT SC SCH ×4 (07:30→21:00)
[2018-08-30] MEDS: AMOXICILLIN 500 MG CAP PO SCH ×2 (08:07→22:48)
[2018-08-30] MEDS: CINACALCET 30 MG TAB (SENSIPAR) PO SCH (08:07)
[2018-08-30] MEDS: ATORVASTATIN 20 MG TAB PO SCH (08:07)
[2018-08-30] MEDS: CLOPIDOGREL 75 MG TAB PO SCH (08:07)
[2018-08-30] MEDS: FLUoxetine 20 MG CAP PO SCH (08:07)
[2018-08-30] MEDS: GABAPENTIN 300 MG CAP PO SCH (08:08)
[2018-08-30] MEDS: CALCITRIOL 0.25 MCG CAP (S0169) PO SCH (08:08)
[2018-08-30] MEDS: MINOXIDIL 2.5 MG TAB PO SCH ×2 (08:08→22:47)
[2018-08-30] MEDS: OMEPRAZOLE 20 MG CAP PO SCH (08:08)
[2018-08-30] MEDS: DRONABINOL 2.5 MG CAP (MARINOL) PO SCH ×2 (08:09→22:48)
[2018-08-30] MEDS: amLODIPine 5 MG TAB PO SCH (08:09)
[2018-08-30] MEDS: FERROUS SULFATE 325MG TAB PO SCH (08:09)
[2018-08-30] MEDS: MEGESTROL 40 MG TAB PO SCH (08:09)
[2018-08-30 08:49] VITALS: BP 145/64
[2018-08-30] MEDS: amLODIPine 10 MG TAB PO SCH (08:50)
[2018-08-30 13:59] VITALS: BP 119/56
[2018-08-30 14:00] VITALS: BP 119/56
[2018-08-30 22:00] VITALS: BP 141/52
[2018-08-31] MEDS: **hydrALAZINE HCL** 25 MG TAB PO SCH ×3 (05:41→20:49)
[2018-08-31 06:00] VITALS: BP 159/70
[2018-08-31] MEDS: HumaLOG INSULIN (NovoLOG) PER UNIT SC SCH ×4 (07:30→21:00)
[2018-08-31] MEDS: CALCITRIOL 0.25 MCG CAP (S0169) PO SCH (08:39)
[2018-08-31] MEDS: CINACALCET 30 MG TAB (SENSIPAR) PO SCH (08:39)
[2018-08-31] MEDS: CLOPIDOGREL 75 MG TAB PO SCH (08:39)
[2018-08-31] MEDS: OMEPRAZOLE 20 MG CAP PO SCH (08:39)
[2018-08-31] MEDS: ATORVASTATIN 20 MG TAB PO SCH (08:39)
[2018-08-31] MEDS: FLUoxetine 20 MG CAP PO SCH (08:39)
[2018-08-31] MEDS: FERROUS SULFATE 325MG TAB PO SCH (08:40)
[2018-08-31] MEDS: GABAPENTIN 300 MG CAP PO SCH (08:40)
[2018-08-31] MEDS: DRONABINOL 2.5 MG CAP (MARINOL) PO SCH ×2 (08:40→20:48)
[2018-08-31] MEDS: amLODIPine 10 MG TAB PO SCH (08:42)
[2018-08-31] MEDS: MINOXIDIL 2.5 MG TAB PO SCH ×2 (08:42→20:48)
[2018-08-31] MEDS: MEGESTROL 40 MG TAB PO SCH (08:42)
--- NOTE | 2018-08-31 12:21 | IPNPDOC ---
Subjective Date Seen The patient was seen on 08/31/18. Subjective Chief Complaint/HPI Patient seen and examined at the bedside. No acute overnight events noted. Objective Physical Examination General Exam: Positive: Alert, Cooperative, No Acute Distress ENT Exam: Positive: Atraumatic, Mucous membr. moist/pink Neck Exam: Negative: JVD Chest Exam: Positive: Clear to auscultation, Normal air movement Heart Exam: Positive: Rate Normal, Normal S1, Normal S2 Abdomen Exam: Positive: Soft; Negative: Tenderness Extremity Exam: Negative: Tenderness, Swelling Assessment /Plan Plan/VTE VTE Prophylaxis Ordered?: Yes Plan Dementia, advanced CT head is negative Urine culture is positive for Aerococcus Urinae s/p amoxicillin trial Family members state that the patient's current mentation is back to baseline after Abx treatment Acute kidney injury on Chronic kidney disease stage IV, resolved Serum Cr back to baseline Diabetes. Cont on sliding scale, consistent carbohydrate diet, hypoglycemia protocol. Anxiety/Depression Cont Seroquel, Prozac GERD Cont PPI Hypertension Cont current regimen Dyslipidemia Cont Statin Decreased Appetite Cont Megace, Marinol PO intake encouraged Deep vein thrombosis (DVT) prophylaxis SCDs/TEDs Dispo--PFS on board VS, I&O, 24H, Fishbone Vital Signs/I&O Vital Signs Date Time Temp Pulse Resp B/P (MAP) Pulse Ox O2 Delivery O2 Flow Rate FiO2 08/31/18 08:42 60 156/69 08/31/18 06:00 97.2 20 96 I&O- Last 24 Hours up to 6 AM 08/31/18 06:00 Intake Total 1740 ml Output Total 0 ml Balance 1740 ml Laboratory Data 24H LABS Laboratory Tests 2 08/30/18 16:19: Bedside Glucose (Misc Panel) 100 08/30/18 21:06: Bedside Glucose (Misc Panel) 231H 08/31/18 07:28: Bedside Glucose (Misc Panel) 101 08/31/18 11:30: Bedside Glucose (Misc Panel) 124H Microbiology Microbiology 08/24/18 Urine Culture - Final, Complete Aerococcus UrMELODY Abebe MD Aug 31, 2018 12:21
[2018-08-31 14:00] VITALS: BP 160/68
[2018-08-31] MEDS ORDERED: ACETAMINOPHEN TAB 650MG DOSE (2X325MG) PO PRN (18:00)
--- NOTE | 2018-08-31 19:22 | REP ---
Left knee five views: There is demineralization. There is tricompartment osteoarthritis. There is a suprapatellar effusion. 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 There is calcified vascular atheroma in the femoral and popliteal arteries and in the tibial and peroneal arteries. There is no fracture or dislocation. Electronically Signed by Vidal Gu MD 08/31/2018 07:12 P
[2018-08-31 22:00] VITALS: BP 147/67
[2018-09-01] MEDS: **hydrALAZINE HCL** 25 MG TAB PO SCH ×3 (05:03→22:24)
[2018-09-01 06:00] VITALS: BP 137/60
[2018-09-01 07:38] LABS: HEMATOCRIT 26.4 % (42.0-52.0); HEMOGLOBIN 8.9 g/dl (13.5-17.5); MEAN CORPUSCULAR HGB CONC 33.7 g/dl (32.0-36.5); MEAN CORPUSCULAR VOLUME 88.9 fl (80.0-96.0); PLATELET COUNT, AUTOMATED 245 10^3/uL (150-450); RED BLOOD COUNT 2.97 10^6/uL (4.30-6.10); WHITE BLOOD COUNT 7.8 10^3/uL (4.0-10.0)
[2018-09-01 07:53] LABS: CALCIUM LEVEL 9.2 MG/DL (8.8-10.2); CREATININE FOR GFR 2.65 MG/DL (0.70-1.30); GLOMERULAR FILTRATION RATE 24.7 (>35); POTASSIUM SERUM 3.9 MEQ/L (3.5-5.1)
[2018-09-01] MEDS: HumaLOG INSULIN (NovoLOG) PER UNIT SC SCH ×4 (08:41→21:00)
[2018-09-01] MEDS: CLOPIDOGREL 75 MG TAB PO SCH (08:41)
[2018-09-01] MEDS: ATORVASTATIN 20 MG TAB PO SCH (08:42)
[2018-09-01] MEDS: CALCITRIOL 0.25 MCG CAP (S0169) PO SCH (08:43)
[2018-09-01] MEDS: OMEPRAZOLE 20 MG CAP PO SCH (08:43)
[2018-09-01] MEDS: FLUoxetine 20 MG CAP PO SCH (08:44)
[2018-09-01] MEDS: amLODIPine 10 MG TAB PO SCH (08:44)
[2018-09-01] MEDS: GABAPENTIN 300 MG CAP PO SCH (08:45)
[2018-09-01] MEDS: MINOXIDIL 2.5 MG TAB PO SCH ×2 (08:45→22:24)
[2018-09-01] MEDS: MEGESTROL 40 MG TAB PO SCH (08:45)
[2018-09-01] MEDS: DRONABINOL 2.5 MG CAP (MARINOL) PO SCH ×2 (08:46→22:23)
[2018-09-01] MEDS: FERROUS SULFATE 325MG TAB PO SCH (08:46)
[2018-09-01] MEDS: SENNA 8.6 MG TAB (SENOKOT) PO SCH ×2 (10:17→22:24)
--- NOTE | 2018-09-01 12:22 | IPNPDOC ---
Subjective Date Seen The patient was seen on 09/01/18. Subjective Chief Complaint/HPI Patient seen and examined at the bedside. Yesterday the patient noted that his left knee was reportedly more sore. Upon examination the patient endorsed that his ROM of the left knee was at its baseline. He reports chronic arthritis in the knee. He has been able to bear weight on it and has walked 350 ft with PT. There is an effusion noted, but no erythema or tenderness to palpation. The patient has remained afebrile and with a normal WBC. No signs or symptoms to suggest septic knee. Objective Physical Examination General Exam: Positive: Alert, Cooperative, No Acute Distress ENT Exam: Positive: Atraumatic, Mucous membr. moist/pink Neck Exam: Negative: JVD Chest Exam: Positive: Clear to auscultation, Normal air movement Heart Exam: Positive: Rate Normal, Normal S1, Normal S2 Abdomen Exam: Positive: Soft; Negative: Tenderness Extremity Exam: Positive: Other (Left Knee joint notable for effusion, but no erythema, tenderness to palpation. Patient with his baseline ROM. ); Negative: Tenderness Assessment /Plan Plan/VTE VTE Prophylaxis Ordered?: Yes Plan Dementia, advanced CT head is negative Urine culture is positive for Aerococcus Urinae s/p amoxicillin trial Family members state that the patient's current mentation is back to baseline after Abx treatment Acute kidney injury on Chronic kidney disease stage IV, resolved Serum Cr back to baseline Chronic Osteoarthritis Patient reported chronic arthritis in the left knee. He has been able to bear weight on it and has walked 350 ft with PT. There is an effusion noted, but no erythema or tenderness to palpation. The patient has remained afebrile and with a normal WBC. XR imaging of the left knee notable for osteoarthritis with suprapatellar effusion. No signs or symptoms to suggest septic joint. Diabetes. Cont on sliding scale, consistent carbohydrate diet, hypoglycemia protocol. Anxiety/Depression Cont Seroquel, Prozac GERD Cont PPI Hypertension Cont current regimen Dyslipidemia Cont Statin Decreased Appetite Cont Megace, Marinol PO intake encouraged Deep vein thrombosis (DVT) prophylaxis SCDs/TEDs Dispo--PFS on board VS, I&O, 24H, Fishbone Vital Signs/I&O Vital Signs Date Time Temp Pulse Resp B/P (MAP) Pulse Ox O2 Delivery O2 Flow Rate FiO2 09/01/18 08:44 71 137/60 09/01/18 06:00 97.9 20 96 I&O- Last 24 Hours up to 6 AM 09/01/18 06:00 Intake Total 620 ml Output Total 0 ml Balance 620 ml Laboratory Data 24H LABS Laboratory Tests 2 08/31/18 16:46: Bedside Glucose (Misc Panel) 107 08/31/18 19:09: Uric Acid 6.2 08/31/18 21:25: Bedside Glucose (Misc Panel) 134H 09/01/18 07:12: Nucleated Red Blood Cells % (auto) 0.0, Anion Gap 8, Glomerular Filtration Rate 24.7L, Blood Urea Nitrogen 25H, Creatinine 2.65H, Sodium Level 144, Potassium Level 3.9, Chloride Level 112H, Carbon Dioxide Level 24, Calcium Level 9.2 09/01/18 11:52: Bedside Glucose (Misc Panel) 98 CBC/BMP Laboratory Tests 09/01/18 07:12 Red Blood Count 2.97 L, Mean Corpuscular Volume 88.9, Mean Corpuscular Hemoglobin 30.0, Mean Corpuscular Hemoglobin Concent 33.7, Red Cell Distribution Width 14.2, Calcium Level 9.2 Microbiology Microbiology 08/24/18 Urine Culture - Final, Complete Aerococcus Urinae MELODY YOON MD Sep 01, 2018 12:22
[2018-09-01 14:00] VITALS: BP 119/55
[2018-09-01 22:00] VITALS: BP 104/54
[2018-09-02] MEDS: **hydrALAZINE HCL** 25 MG TAB PO SCH ×3 (05:46→22:12)
[2018-09-02 06:00] VITALS: BP 141/63
[2018-09-02 06:51] LABS: HEMATOCRIT 26.1 % (42.0-52.0); HEMOGLOBIN 8.9 g/dl (13.5-17.5); MEAN CORPUSCULAR HEMOGLOBIN 30.6 pg (27.0-33.0); MEAN CORPUSCULAR HGB CONC 34.1 g/dl (32.0-36.5); MEAN CORPUSCULAR VOLUME 89.7 fl (80.0-96.0); PLATELET COUNT, AUTOMATED 263 10^3/uL (150-450); RED BLOOD COUNT 2.91 10^6/uL (4.30-6.10); WHITE BLOOD COUNT 8.9 10^3/uL (4.0-10.0)
[2018-09-02 07:11] LABS: CALCIUM LEVEL 9.4 MG/DL (8.8-10.2); CREATININE FOR GFR 2.87 MG/DL (0.70-1.30); GLOMERULAR FILTRATION RATE 22.6 (>35); POTASSIUM SERUM 3.9 MEQ/L (3.5-5.1)
[2018-09-02] MEDS: HumaLOG INSULIN (NovoLOG) PER UNIT SC SCH ×4 (08:20→21:38)
[2018-09-02] MEDS: CLOPIDOGREL 75 MG TAB PO SCH (09:57)
[2018-09-02] MEDS: ATORVASTATIN 20 MG TAB PO SCH (09:57)
[2018-09-02] MEDS: CALCITRIOL 0.25 MCG CAP (S0169) PO SCH (09:58)
[2018-09-02] MEDS: GABAPENTIN 300 MG CAP PO SCH (09:59)
[2018-09-02] MEDS: SENNA 8.6 MG TAB (SENOKOT) PO SCH ×2 (09:59→20:14)
[2018-09-02] MEDS: OMEPRAZOLE 20 MG CAP PO SCH (10:00)
[2018-09-02] MEDS: MINOXIDIL 2.5 MG TAB PO SCH ×2 (10:00→20:14)
[2018-09-02] MEDS: FLUoxetine 20 MG CAP PO SCH (10:00)
[2018-09-02] MEDS: FERROUS SULFATE 325MG TAB PO SCH (10:01)
[2018-09-02] MEDS: amLODIPine 10 MG TAB PO SCH (10:01)
[2018-09-02] MEDS: MEGESTROL 40 MG TAB PO SCH (10:01)
[2018-09-02] MEDS: DRONABINOL 2.5 MG CAP (MARINOL) PO SCH ×2 (10:02→20:14)
--- NOTE | 2018-09-02 12:35 | IPNPDOC ---
Subjective Date Seen The patient was seen on 09/02/18. Subjective Chief Complaint/HPI Patient seen and examined at the bedside. Reports he is feeling well and denies any acute complaints. Notes that he has been walking back and forth to the bathroom and in the hallways without any acute issues. Objective Physical Examination General Exam: Positive: Alert, Cooperative, No Acute Distress ENT Exam: Positive: Atraumatic, Mucous membr. moist/pink Neck Exam: Negative: JVD Chest Exam: Positive: Clear to auscultation, Normal air movement Heart Exam: Positive: Rate Normal, Normal S1, Normal S2 Abdomen Exam: Positive: Soft; Negative: Tenderness Extremity Exam: Positive: Other (Left Knee joint notable for effusion, but no erythema, tenderness to palpation. Patient with his baseline ROM. Strength intact. Extremity neurovascularly intact distally.); Negative: Tenderness Assessment /Plan Plan/VTE VTE Prophylaxis Ordered?: Yes Plan Dementia, advanced CT head is negative Urine culture is positive for Aerococcus Urinae s/p amoxicillin trial Family members state that the patient's current mentation is back to baseline after Abx treatment Acute kidney injury on Chronic kidney disease stage IV, resolved Serum Cr back to baseline Chronic Osteoarthritis Patient reported chronic arthritis in the left knee. He has been able to bear weight on it and has walked 350 ft with PT. There is an effusion noted, but no erythema or tenderness to palpation. The patient has remained afebrile and with a normal WBC. XR imaging of the left knee notable for osteoarthritis with suprapatellar effusion. No signs or symptoms to suggest septic joint. Diabetes. Cont on sliding scale, consistent carbohydrate diet, hypoglycemia protocol. Anxiety/Depression Cont Seroquel, Prozac GERD Cont PPI Hypertension Cont current regimen Dyslipidemia Cont Statin Decreased Appetite Cont Megace, Marinol PO intake encouraged Deep vein thrombosis (DVT) prophylaxis SCDs/TEDs VS, I&O, 24H, Fishbone Vital Signs/I&O Vital Signs Date Time Temp Pulse Resp B/P (MAP) Pulse Ox O2 Delivery O2 Flow Rate FiO2 09/02/18 10:01 63 141/63 09/02/18 06:00 98.6 18 97 I&O- Last 24 Hours up to 6 AM 09/02/18 06:00 Intake Total 1080 ml Balance 1080 ml Laboratory Data 24H LABS Laboratory Tests 2 09/01/18 16:56: Bedside Glucose (Misc Panel) 153H 09/01/18 20:58: Bedside Glucose (Misc Panel) 59L 09/01/18 22:01: Bedside Glucose (Misc Panel) 97 09/02/18 06:22: Nucleated Red Blood Cells % (auto) 0.0, Anion Gap 7L, Glomerular Filtration Rate 22.6L, Blood Urea Nitrogen 29H, Creatinine 2.87H, Sodium Level 142, Potassium Level 3.9, Chloride Level 112H, Carbon Dioxide Level 23, Calcium Level 9.4 09/02/18 11:38: Bedside Glucose (Misc Panel) 154H CBC/BMP Laboratory Tests 09/02/18 06:22 Red Blood Count 2.91 L, Mean Corpuscular Volume 89.7, Mean Corpuscular Hemoglobin 30.6, Mean Corpuscular Hemoglobin Concent 34.1, Red Cell Distribution Width 14.3, Calcium Level 9.4 Microbiology Microbiology 08/24/18 Urine Culture - Final, Complete Aerococcus Urinae MELODY YOON MD Sep 02, 2018 12:35
[2018-09-02 14:00] VITALS: BP 94/51
[2018-09-02 22:00] VITALS: BP 160/72
[2018-09-03] MEDS: **hydrALAZINE HCL** 25 MG TAB PO SCH ×3 (05:37→20:31)
[2018-09-03 05:52] LABS: MEAN CORPUSCULAR HEMOGLOBIN 29.9 pg (27.0-33.0); MEAN CORPUSCULAR HGB CONC 33.3 g/dl (32.0-36.5); MEAN CORPUSCULAR VOLUME 89.6 fl (80.0-96.0); PLATELET COUNT, AUTOMATED 245 10^3/uL (150-450); RED BLOOD COUNT 2.68 10^6/uL (4.30-6.10); WHITE BLOOD COUNT 7.5 10^3/uL (4.0-10.0)
[2018-09-03 06:00] VITALS: BP 159/67
[2018-09-03 06:01] LABS: CALCIUM LEVEL 9.3 MG/DL (8.8-10.2); CREATININE FOR GFR 3.01 MG/DL (0.70-1.30); GLOMERULAR FILTRATION RATE 21.4 (>35); POTASSIUM SERUM 3.9 MEQ/L (3.5-5.1)
[2018-09-03] MEDS: HumaLOG INSULIN (NovoLOG) PER UNIT SC SCH ×4 (07:46→20:31)
[2018-09-03 11:01] VITALS: BP 136/55
[2018-09-03] MEDS: CLOPIDOGREL 75 MG TAB PO SCH (11:14)
[2018-09-03] MEDS: amLODIPine 10 MG TAB PO SCH (11:14)
[2018-09-03] MEDS: SENNA 8.6 MG TAB (SENOKOT) PO SCH ×2 (11:14→20:30)
[2018-09-03] MEDS: CALCITRIOL 0.25 MCG CAP (S0169) PO SCH (11:15)
[2018-09-03] MEDS: CINACALCET 30 MG TAB (SENSIPAR) PO SCH (11:15)
[2018-09-03] MEDS: OMEPRAZOLE 20 MG CAP PO SCH (11:16)
[2018-09-03] MEDS: MINOXIDIL 2.5 MG TAB PO SCH ×2 (11:17→20:31)
[2018-09-03] MEDS: MEGESTROL 40 MG TAB PO SCH (11:17)
[2018-09-03] MEDS: FLUoxetine 20 MG CAP PO SCH (11:17)
[2018-09-03] MEDS: ATORVASTATIN 20 MG TAB PO SCH (11:18)
[2018-09-03] MEDS: DRONABINOL 2.5 MG CAP (MARINOL) PO SCH ×2 (11:18→20:30)
[2018-09-03] MEDS: FERROUS SULFATE 325MG TAB PO SCH (11:18)
[2018-09-03] MEDS: GABAPENTIN 300 MG CAP PO SCH (11:19)
[2018-09-03 14:00] VITALS: BP 139/65
[2018-09-03 14:01] VITALS: BP 135/51
[2018-09-03 14:16] VITALS: BP 135/51
--- NOTE | 2018-09-03 15:11 | IPNPDOC ---
Subjective Date Seen The patient was seen on 09/03/18. Subjective Chief Complaint/HPI Patient seen and examined at bedside. No acute overnight events noted. Objective Physical Examination General Exam: Positive: Alert, Cooperative, No Acute Distress ENT Exam: Positive: Atraumatic, Mucous membr. moist/pink Neck Exam: Negative: JVD Chest Exam: Positive: Clear to auscultation, Normal air movement Heart Exam: Positive: Rate Normal, Normal S1, Normal S2 Abdomen Exam: Positive: Soft; Negative: Tenderness Extremity Exam: Positive: Other (Left Knee joint notable for effusion, but no erythema, tenderness to palpation. Patient with his baseline ROM. Strength intact. Extremity neurovascularly intact distally.); Negative: Tenderness Assessment /Plan Plan/VTE VTE Prophylaxis Ordered?: Yes Plan Dementia, advanced CT head is negative Urine culture is positive for Aerococcus Urinae s/p amoxicillin trial Family members state that the patient's current mentation is back to baseline after Abx treatment Acute kidney injury on Chronic kidney disease stage IV, resolved Serum Cr back to baseline Chronic Osteoarthritis Patient reported chronic arthritis in the left knee. He has been able to bear weight on it and has walked 350 ft with PT. There is an effusion noted, but no erythema or tenderness to palpation. The patient has remained afebrile and with a normal WBC. XR imaging of the left knee notable for osteoarthritis with suprapatellar effusion. No signs or symptoms to suggest septic joint. Diabetes. Cont on sliding scale, consistent carbohydrate diet, hypoglycemia protocol. Anxiety/Depression Cont Seroquel, Prozac GERD Cont PPI Hypertension Cont current regimen Dyslipidemia Cont Statin Decreased Appetite Cont Megace, Marinol PO intake encouraged Deep vein thrombosis (DVT) prophylaxis SCDs/TEDs VS, I&O, 24H, Fishbone Vital Signs/I&O Vital Signs Date Time Temp Pulse Resp B/P (MAP) Pulse Ox O2 Delivery O2 Flow Rate FiO2 09/03/18 14:16 20 135/51 09/03/18 14:01 66 09/03/18 14:00 97.9 97 I&O- Last 24 Hours up to 6 AM 09/03/18 06:00 Intake Total 1880 ml Output Total 0 ml Balance 1880 ml Laboratory Data 24H LABS Laboratory Tests 2 09/02/18 16:40: Bedside Glucose (Misc Panel) 79L 09/02/18 19:31: Bedside Glucose (Misc Panel) 150H 09/03/18 05:25: Nucleated Red Blood Cells % (auto) 0.0, Anion Gap 6L, Glomerular Filtration Rate 21.4L, Blood Urea Nitrogen 34H, Creatinine 3.01H, Sodium Level 142, Potassium Level 3.9, Chloride Level 113H, Carbon Dioxide Level 23, Calcium Level 9.3 09/03/18 11:57: Bedside Glucose (Misc Panel) 128H CBC/BMP Laboratory Tests 09/03/18 05:25 Red Blood Count 2.68 L, Mean Corpuscular Volume 89.6, Mean Corpuscular Hemoglobin 29.9, Mean Corpuscular Hemoglobin Concent 33.3, Red Cell Distribution Width 14.5, Calcium Level 9.3 Microbiology Microbiology 08/24/18 Urine Culture - Final, Complete Aerococcus Urinae MELODY YOON MD Sep 03, 2018 15:11
[2018-09-03 20:29] VITALS: BP 149/68
[2018-09-04 06:00] VITALS: BP 168/73
[2018-09-04] MEDS: **hydrALAZINE HCL** 25 MG TAB PO SCH ×3 (06:06→20:38)
[2018-09-04 06:25] LABS: HEMATOCRIT 26.4 % (42.0-52.0); HEMOGLOBIN 8.9 g/dl (13.5-17.5); MEAN CORPUSCULAR HEMOGLOBIN 29.9 pg (27.0-33.0); MEAN CORPUSCULAR HGB CONC 33.7 g/dl (32.0-36.5); MEAN CORPUSCULAR VOLUME 88.6 fl (80.0-96.0); PLATELET COUNT, AUTOMATED 285 10^3/uL (150-450); RED BLOOD COUNT 2.98 10^6/uL (4.30-6.10); WHITE BLOOD COUNT 7.3 10^3/uL (4.0-10.0)
[2018-09-04 06:49] LABS: CALCIUM LEVEL 9.8 MG/DL (8.8-10.2); CREATININE FOR GFR 2.77 MG/DL (0.70-1.30); GLOMERULAR FILTRATION RATE 23.5 (>35); POTASSIUM SERUM 3.9 MEQ/L (3.5-5.1)
[2018-09-04] MEDS: HumaLOG INSULIN (NovoLOG) PER UNIT SC SCH ×4 (08:12→21:00)
[2018-09-04] MEDS: CLOPIDOGREL 75 MG TAB PO SCH (08:13)
[2018-09-04] MEDS: CINACALCET 30 MG TAB (SENSIPAR) PO SCH (08:13)
[2018-09-04] MEDS: ATORVASTATIN 20 MG TAB PO SCH (08:13)
[2018-09-04] MEDS: SENNA 8.6 MG TAB (SENOKOT) PO SCH ×2 (08:13→20:37)
[2018-09-04] MEDS: CALCITRIOL 0.25 MCG CAP (S0169) PO SCH (08:13)
[2018-09-04] MEDS: FERROUS SULFATE 325MG TAB PO SCH (08:13)
[2018-09-04] MEDS: FLUoxetine 20 MG CAP PO SCH (08:13)
[2018-09-04] MEDS: OMEPRAZOLE 20 MG CAP PO SCH (08:13)
[2018-09-04] MEDS: MINOXIDIL 2.5 MG TAB PO SCH ×2 (08:13→20:38)
[2018-09-04] MEDS: amLODIPine 10 MG TAB PO SCH (08:13)
[2018-09-04] MEDS: MEGESTROL 40 MG TAB PO SCH (08:14)
[2018-09-04] MEDS: DRONABINOL 2.5 MG CAP (MARINOL) PO SCH ×2 (08:14→20:37)
[2018-09-04] MEDS: GABAPENTIN 300 MG CAP PO SCH (08:14)
[2018-09-04 10:00] VITALS: BP 146/67
[2018-09-04 14:00] VITALS: BP 164/74
--- NOTE | 2018-09-04 19:25 | IPN ---
DATE: 09/04/2018 SUBJECTIVE: The patient is seen and examined in the room today. The patient is not a good historian. Denies any acute complaints. OBJECTIVE: VITAL SIGNS: Temperature is 98.9, pulse is 65, respirations 20, blood pressure is 168/73, pulse oximetry is 90% in room air. GENERAL: No sign of acute distress. Patient alert and awake. HEENT: Normocephalic, atraumatic. Extraocular motor grossly intact. CARDIOVASCULAR: Positive S1, S2, regular rate. LUNGS: Clear to auscultation bilaterally. ABDOMEN: Soft, nontender. EXTREMITIES: Left knee effusion. No tenderness to palpation. No other lower extremity swelling. LABORATORY DATA: WBC is 7.3, hemoglobin 8.9, hematocrit 26.4, platelets 285. Sodium is 140, potassium 3.9, chloride 112, carbon dioxide 22, BUN 30, creatinine is 2.77, GFR 23.5, fasting glucose 124, calcium 9.8. ASSESSMENT AND PLAN: 1. Severe dementia. Patient had an Aerococcus urinary tract infection previously, status post antibiotic treatment. Currently the patient is looking for placement. 2. Metabolic encephalopathy secondary to UTI. Resolved. 3. Acute on chronic kidney disease. At baseline, chronic kidney disease stage IV. Continue to monitor the patient. 4. Diabetes. On sliding scale and consistent carbohydrate diet. 5. Anxiety/depression. On Seroquel and Prozac. 6. BPH. 7. Hypertension. On Norvasc, hydralazine. 8. Deep vein thrombosis (DVT) prophylaxis. On thromboembolism deterrent (DIANNE) compression. MTDD
[2018-09-04 22:00] VITALS: BP 146/67
[2018-09-05] MEDS: **hydrALAZINE HCL** 25 MG TAB PO SCH ×3 (05:20→21:14)
[2018-09-05 06:00] VITALS: BP 166/72
[2018-09-05 06:39] LABS: HEMOGLOBIN 8.4 g/dl (13.5-17.5); MEAN CORPUSCULAR HEMOGLOBIN 29.9 pg (27.0-33.0); MEAN CORPUSCULAR HGB CONC 33.6 g/dl (32.0-36.5); PLATELET COUNT, AUTOMATED 258 10^3/uL (150-450); RED BLOOD COUNT 2.81 10^6/uL (4.30-6.10)
[2018-09-05 07:08] LABS: CREATININE FOR GFR 2.68 MG/DL (0.70-1.30); GLOMERULAR FILTRATION RATE 24.4 (>35); POTASSIUM SERUM 3.9 MEQ/L (3.5-5.1)
[2018-09-05] MEDS: HumaLOG INSULIN (NovoLOG) PER UNIT SC SCH ×4 (08:04→20:13)
[2018-09-05] MEDS: CINACALCET 30 MG TAB (SENSIPAR) PO SCH (08:04)
[2018-09-05] MEDS: CLOPIDOGREL 75 MG TAB PO SCH (08:05)
[2018-09-05] MEDS: ATORVASTATIN 20 MG TAB PO SCH (08:05)
[2018-09-05] MEDS: FLUoxetine 20 MG CAP PO SCH (08:05)
[2018-09-05] MEDS: CALCITRIOL 0.25 MCG CAP (S0169) PO SCH (08:05)
[2018-09-05] MEDS: SENNA 8.6 MG TAB (SENOKOT) PO SCH ×2 (08:05→21:16)
[2018-09-05] MEDS: amLODIPine 10 MG TAB PO SCH (08:05)
[2018-09-05] MEDS: MINOXIDIL 2.5 MG TAB PO SCH ×2 (08:06→21:17)
[2018-09-05] MEDS: GABAPENTIN 300 MG CAP PO SCH (08:06)
[2018-09-05] MEDS: MEGESTROL 40 MG TAB PO SCH (08:06)
[2018-09-05] MEDS: OMEPRAZOLE 20 MG CAP PO SCH (08:06)
[2018-09-05] MEDS: FERROUS SULFATE 325MG TAB PO SCH (08:06)
[2018-09-05] MEDS: DRONABINOL 2.5 MG CAP (MARINOL) PO SCH ×2 (08:06→21:16)
--- NOTE | 2018-09-05 18:48 | IPNPDOC ---
Text Note Date of Service The patient was seen on 09/05/18. NOTE SUBJECTIVE: The patient is seen and examined in the room today. Patient demonstrates sign of severe dementia. Denies any acute complaints. OBJECTIVE: VITAL SIGNS: Listed below. GENERAL: No sign of acute distress. Patient alert and awake. HEENT: Normocephalic, atraumatic. Extraocular motor grossly intact. CARDIOVASCULAR: Positive S1, S2, regular rate. LUNGS: Clear to auscultation bilaterally. ABDOMEN: Soft, nontender. EXTREMITIES: Left knee effusion. No tenderness to palpation. No other lower extremity swelling. LABORATORY DATA: Listed below. ASSESSMENT AND PLAN: #. Severe dementia. - S/P treatment for Aerococcus urinary tract infection. - Pending nursing placement. #. Acute on chronic kidney disease. - At baseline, patient has chronic kidney disease stage IV. Continue to monitor the patient. Patient does have poor oral intake. # Metabolic encephalopathy secondary to UTI. Resolved. # Protein caloric malnutrition. - Poor oral intake. Enzure supplement TID ordered. - On Marinol and megace. #. Diabetes. On sliding scale and consistent carbohydrate diet. #. Anxiety/depression. On Seroquel and Prozac. #. BPH. #. Hypertension. On Norvasc, hydralazine. #. Deep vein thrombosis (DVT) prophylaxis. On thromboembolism deterrent (DIANNE) compression. VS,Fishbone, I+O VS, Fishbone, I+O Laboratory Tests 09/05/18 06:23 Red Blood Count 2.81 L, Mean Corpuscular Volume 89.0, Mean Corpuscular He moglobin 29.9, Mean Corpuscular Hemoglobin Concent 33.6, Red Cell Distribution Width 14.1, Calcium Level 10.0 Vital Signs Date Time Temp Pulse Resp B/P (MAP) Pulse Ox O2 Delivery O2 Flow Rate FiO2 09/05/18 13:23 166/72 09/05/18 08:05 62 09/05/18 06:00 97.9 18 97 I&O- Last 24 Hours up to 6 AM 09/05/18 06:00 Intake Total 1100 ml Output Total 0 ml Balance 1100 ml CORINNE MEZA DO Sep 05, 2018 18:48
[2018-09-05 22:00] VITALS: BP 122/56
[2018-09-06 06:00] VITALS: BP 139/64
[2018-09-06] MEDS: **hydrALAZINE HCL** 25 MG TAB PO SCH ×3 (06:17→20:13)
[2018-09-06 06:52] LABS: HEMOGLOBIN 8.8 g/dl (13.5-17.5); MEAN CORPUSCULAR HEMOGLOBIN 29.6 pg (27.0-33.0); MEAN CORPUSCULAR HGB CONC 33.8 g/dl (32.0-36.5); MEAN CORPUSCULAR VOLUME 87.5 fl (80.0-96.0); PLATELET COUNT, AUTOMATED 283 10^3/uL (150-450); RED BLOOD COUNT 2.97 10^6/uL (4.30-6.10); WHITE BLOOD COUNT 8.6 10^3/uL (4.0-10.0)
[2018-09-06 07:17] LABS: CALCIUM LEVEL 10.4 MG/DL (8.8-10.2); CREATININE FOR GFR 2.72 MG/DL (0.70-1.30); POTASSIUM SERUM 3.9 MEQ/L (3.5-5.1)
[2018-09-06] MEDS: DRONABINOL 2.5 MG CAP (MARINOL) PO SCH ×2 (08:24→20:13)
[2018-09-06] MEDS: CALCITRIOL 0.25 MCG CAP (S0169) PO SCH (08:24)
[2018-09-06] MEDS: MINOXIDIL 2.5 MG TAB PO SCH ×2 (08:24→20:13)
[2018-09-06] MEDS: CINACALCET 30 MG TAB (SENSIPAR) PO SCH (08:24)
[2018-09-06] MEDS: CLOPIDOGREL 75 MG TAB PO SCH (08:24)
[2018-09-06] MEDS: GABAPENTIN 300 MG CAP PO SCH (08:24)
[2018-09-06] MEDS: FERROUS SULFATE 325MG TAB PO SCH (08:24)
[2018-09-06] MEDS: OMEPRAZOLE 20 MG CAP PO SCH (08:24)
[2018-09-06] MEDS: FLUoxetine 20 MG CAP PO SCH (08:24)
[2018-09-06] MEDS: SENNA 8.6 MG TAB (SENOKOT) PO SCH ×2 (08:24→20:12)
[2018-09-06] MEDS: amLODIPine 10 MG TAB PO SCH (08:25)
[2018-09-06] MEDS: ATORVASTATIN 20 MG TAB PO SCH (08:25)
[2018-09-06] MEDS: MEGESTROL 40 MG TAB PO SCH (08:25)
[2018-09-06] MEDS: HumaLOG INSULIN (NovoLOG) PER UNIT SC SCH ×4 (08:25→20:13)
--- NOTE | 2018-09-06 18:21 | IPNPDOC ---
Text Note Date of Service The patient was seen on 09/06/18. NOTE SUBJECTIVE: The patient is seen and examined in the room today. Patient denies acute change. He demonstrates sign of severe dementia. OBJECTIVE: VITAL SIGNS: Listed below. GENERAL: No sign of acute distress. Patient alert and awake. HEENT: Normocephalic, atraumatic. Extraocular motor grossly intact. CARDIOVASCULAR: Positive S1, S2, regular rate. LUNGS: Clear to auscultation bilaterally. ABDOMEN: Soft, nontender. EXTREMITIES: Left knee effusion. No tenderness to palpation. No other lower extremity swelling. LABORATORY DATA: Listed below. ASSESSMENT AND PLAN: #. Severe dementia. - S/P treatment for Aerococcus urinary tract infection. - Pending nursing placement. #. Acute on chronic kidney disease. - At baseline, patient has chronic kidney disease stage IV. Continue to monitor the patient. Patient does have poor oral intake. # Metabolic encephalopathy secondary to UTI. Resolved. # Protein caloric malnutrition. - Poor oral intake. Enzure supplement TID ordered. Encourage increasing oral intake. - On Marinol and megace. #. Diabetes. On sliding scale and consistent carbohydrate diet. #. Anxiety/depression. On Seroquel and Prozac. #. BPH. #. Hypertension. On Norvasc, hydralazine. #. Deep vein thrombosis (DVT) prophylaxis. On thromboembolism deterrent (DIANNE) compression. VS,Fishbone, I+O VS, Fishbone, I+O Laboratory Tests 09/06/18 06:37 Red Blood Count 2.97 L, Mean Corpuscular Volume 87.5, Mean Corpuscular Hemoglobin 29.6, Mean Corpuscular Hemoglobin Concent 33.8, Red Cell Distribution Width 14.2, Calcium Level 10.4 H Vital Signs Date Time Temp Pulse Resp B/P (MAP) Pulse Ox O2 Delivery O2 Flow Rate FiO2 09/06/18 14:08 152/73 09/06/18 06:00 98.6 64 18 96 I&O- Last 24 Hours up to 6 AM 09/06/18 06:00 Intake Total 480 ml Output Total 0 ml Balance 480 ml CORINNE MEZA DO Sep 06, 2018 18:21
[2018-09-07] MEDS: **hydrALAZINE HCL** 25 MG TAB PO SCH ×3 (05:34→21:33)
[2018-09-07 06:00] VITALS: BP_SYST 158; BP_SYST 188; BP_DIAS 74
[2018-09-07 06:43] LABS: HEMATOCRIT 23.5 % (42.0-52.0); PLATELET COUNT, AUTOMATED 256 10^3/uL (150-450); RED BLOOD COUNT 2.67 10^6/uL (4.30-6.10); WHITE BLOOD COUNT 6.8 10^3/uL (4.0-10.0)
[2018-09-07 07:14] LABS: CALCIUM LEVEL 9.9 MG/DL (8.8-10.2); CREATININE FOR GFR 2.6 MG/DL (0.70-1.30); GLOMERULAR FILTRATION RATE 25.3 (>35); POTASSIUM SERUM 4.1 MEQ/L (3.5-5.1)
[2018-09-07] MEDS: HumaLOG INSULIN (NovoLOG) PER UNIT SC SCH ×4 (07:30→21:00)
[2018-09-07 07:55] VITALS: BP 130/64
[2018-09-07] MEDS: CINACALCET 30 MG TAB (SENSIPAR) PO SCH (08:16)
[2018-09-07] MEDS: OMEPRAZOLE 20 MG CAP PO SCH (08:17)
[2018-09-07] MEDS: amLODIPine 10 MG TAB PO SCH (08:17)
[2018-09-07] MEDS: SENNA 8.6 MG TAB (SENOKOT) PO SCH ×2 (08:17→21:36)
[2018-09-07] MEDS: CALCITRIOL 0.25 MCG CAP (S0169) PO SCH (08:17)
[2018-09-07] MEDS: CLOPIDOGREL 75 MG TAB PO SCH (08:17)
[2018-09-07] MEDS: FLUoxetine 20 MG CAP PO SCH (08:17)
[2018-09-07] MEDS: MEGESTROL 40 MG TAB PO SCH (08:18)
[2018-09-07] MEDS: DRONABINOL 2.5 MG CAP (MARINOL) PO SCH ×2 (08:18→21:35)
[2018-09-07] MEDS: MINOXIDIL 2.5 MG TAB PO SCH ×2 (08:18→21:36)
[2018-09-07] MEDS: ATORVASTATIN 20 MG TAB PO SCH (08:19)
[2018-09-07] MEDS: GABAPENTIN 300 MG CAP PO SCH (08:19)
[2018-09-07] MEDS: FERROUS SULFATE 325MG TAB PO SCH (08:19)
[2018-09-07 13:53] VITALS: BP 128/64
--- NOTE | 2018-09-07 17:42 | IPNPDOC ---
Text Note Date of Service The patient was seen on 09/07/18. NOTE SUBJECTIVE: The patient is seen and examined in the room today. Patient denies acute change. Patient did not finish his Enzure supplement. He demonstrates sign of severe dementia. OBJECTIVE: VITAL SIGNS: Listed below. GENERAL: No sign of acute distress. Patient alert and awake. HEENT: Normocephalic, atraumatic. Extraocular motor grossly intact. CARDIOVASCULAR: Positive S1, S2, regular rate. LUNGS: Clear to auscultation bilaterally. ABDOMEN: Soft, nontender. EXTREMITIES: Left knee effusion. No tenderness to palpation. No other lower extremity swelling. LABORATORY DATA: Listed below. ASSESSMENT AND PLAN: #. Severe dementia. - S/P treatment for Aerococcus urinary tract infection. - Pending nursing placement. #. Acute on chronic kidney disease. - At baseline, patient has chronic kidney disease stage IV. Continue to monitor the patient. Patient does have poor oral intake. # Metabolic encephalopathy secondary to UTI. Resolved. # Protein caloric malnutrition. - Poor oral intake. Enzure supplement TID ordered. Encourage increasing oral in take. - On Marinol and megace. #. Diabetes. On sliding scale and consistent carbohydrate diet. #. Anxiety/depression. On Seroquel and Prozac. #. BPH. #. Hypertension. On Norvasc, hydralazine. #. Deep vein thrombosis (DVT) prophylaxis. On thromboembolism deterrent (DIANNE) compression. VS,Fishbone, I+O VS, Fishbone, I+O Laboratory Tests 09/07/18 06:11 Red Blood Count 2.67 L, Mean Corpuscular Volume 88.0, Mean Corpuscular Hemoglobin 30.0, Mean Corpuscular Hemoglobin Concent 34.0, Red Cell Distribution Width 14.3, Calcium Level 9.9 Vital Signs Date Time Temp Pulse Resp B/P (MAP) Pulse Ox O2 Delivery O2 Flow Rate FiO2 09/07/18 14:18 128/64 09/07/18 13:53 100.0 64 20 94 I&O- Last 24 Hours up to 6 AM 09/07/18 06:00 Intake Total 990 ml Output Total 0 ml Balance 990 ml CORINNE MEZA DO Sep 07, 2018 17:42
[2018-09-07 22:00] VITALS: BP 116/58
[2018-09-08] MEDS: **hydrALAZINE HCL** 25 MG TAB PO SCH ×3 (05:47→21:08)
[2018-09-08 06:00] VITALS: BP 184/72
[2018-09-08 07:56] LABS: BASO # 0.1 10^3/uL (0.0-0.2); BASO % 0.7 % (0.0-1.0); EOS # 0.4 10^3/uL (0.0-0.50); EOS % 5.6 % (0.0-3.0); HEMATOCRIT 24.7 % (42.0-52.0); HEMOGLOBIN 8.4 g/dl (13.5-17.5); LYMPH # 1.1 10^3/uL (1.5-4.5); LYMPH % 14.2 % (24.0-44.0); MEAN CORPUSCULAR HEMOGLOBIN 30.3 pg (27.0-33.0); MEAN CORPUSCULAR VOLUME 89.2 fl (80.0-96.0); MONO # 0.7 10^3/uL (0.0-0.8); MONO % 9.2 % (0.0-5.0); NEUTROPHILS # 5.4 10^3/uL (1.8-7.7); NEUTROPHILS % 69.9 % (36.0-66.0); PLATELET COUNT, AUTOMATED 281 10^3/uL (150-450); RED BLOOD COUNT 2.77 10^6/uL (4.30-6.10); WHITE BLOOD COUNT 7.7 10^3/uL (4.0-10.0)
[2018-09-08 08:26] LABS: CALCIUM LEVEL 10.1 MG/DL (8.8-10.2); CREATININE FOR GFR 2.55 MG/DL (0.70-1.30); GLOMERULAR FILTRATION RATE 25.9 (>35); POTASSIUM SERUM 3.9 MEQ/L (3.5-5.1)
[2018-09-08] MEDS: DRONABINOL 2.5 MG CAP (MARINOL) PO SCH ×2 (09:20→21:08)
[2018-09-08] MEDS: FLUoxetine 20 MG CAP PO SCH (09:23)
[2018-09-08] MEDS: SENNA 8.6 MG TAB (SENOKOT) PO SCH ×2 (09:23→21:08)
[2018-09-08] MEDS: FERROUS SULFATE 325MG TAB PO SCH (09:23)
[2018-09-08] MEDS: MEGESTROL 40 MG TAB PO SCH (09:23)
[2018-09-08] MEDS: HumaLOG INSULIN (NovoLOG) PER UNIT SC SCH ×4 (09:23→21:00)
[2018-09-08] MEDS: CLOPIDOGREL 75 MG TAB PO SCH (09:23)
[2018-09-08] MEDS: OMEPRAZOLE 20 MG CAP PO SCH (09:24)
[2018-09-08] MEDS: ATORVASTATIN 20 MG TAB PO SCH (09:24)
[2018-09-08] MEDS: CALCITRIOL 0.25 MCG CAP (S0169) PO SCH (09:24)
[2018-09-08] MEDS: amLODIPine 10 MG TAB PO SCH (09:42)
[2018-09-08] MEDS: GABAPENTIN 300 MG CAP PO SCH (09:42)
[2018-09-08] MEDS: MINOXIDIL 2.5 MG TAB PO SCH ×2 (09:43→21:09)
[2018-09-08 14:00] VITALS: BP 152/67
--- NOTE | 2018-09-08 19:36 | IPNPDOC ---
Text Note Date of Service The patient was seen on 09/08/18. NOTE SUBJECTIVE: The patient is seen and examined in the room today. Patient denies acute change. He demonstrates sign of severe dementia. OBJECTIVE: VITAL SIGNS: Listed below. GENERAL: No sign of acute distress. Patient alert and awake. HEENT: Normocephalic, atraumatic. Extraocular motor grossly intact. CARDIOVASCULAR: Positive S1, S2, regular rate. LUNGS: Clear to auscultation bilaterally. ABDOMEN: Soft, nontender. EXTREMITIES: No tenderness to palpation. No other lower extremity swelling. LABORATORY DATA: Listed below. ASSESSMENT AND PLAN: #. Severe dementia. - S/P treatment for Aerococcus urinary tract infection. Mentation is at baseline. - Pending nursing placement. #. Acute on chronic kidney disease. - At baseline, patient has chronic kidney disease stage IV. Continue to monitor the patient. Patient does have poor oral intake. # Protein caloric malnutrition. - Poor oral intake. Enzure supplement TID ordered. Encourage increasing oral intake. - On Marinol and megace. # Metabolic encephalopathy secondary to UTI. Resolved. #. Diabetes. On sliding scale and consistent carbohydrate diet. #. Anxiety/depression. On Seroquel and Prozac. #. BPH. #. Hypertension. On Norvasc, hydralazine. #. Deep vein thrombosis (DVT) prophylaxis. On thromboembolism deterrent (DIANNE) compression. VS,Fishbone, I+O VS, Fishbone, I+O Laboratory Tests 09/08/18 07:41 Red Blood Count 2.77 L, Mean Corpuscular Volume 89.2, Mean Corpuscular Hemoglobin 30.3, Mean Corpuscular Hemoglobin Concent 34.0, Red Cell Distribution Width 13.8, Neutrophils (%) (Auto) 69.9 H, Lymphocytes (%) (Auto) 14.2 L, Monocytes (%) (Auto) 9.2 H, Eosinophils (%) (Auto) 5.6 H, Basophils (%) (Auto) 0.7, Neutrophils # (Auto) 5.4, Lymphocytes # (Auto) 1.1 L, Monocytes # (Auto) 0.7, Eosinophils # (Auto) 0.4, Basophils # (Auto) 0.1, Calcium Level 10.1 Vital Signs Date Time Temp Pulse Resp B/P (MAP) Pulse Ox O2 Delivery O2 Flow Rate FiO2 3/2/19 14:28 152/57 09/08/18 14:00 97.8 62 18 96 l I&O- Last 24 Hours up to 6 AM 09/08/18 06:00 Intake Total 920 ml Output Total 0 ml Balance 920 ml COIRNNE MEZA DO Sep 08, 2018 19:36
[2018-09-08 22:00] VITALS: BP 155/67
[2018-09-09] MEDS: **hydrALAZINE HCL** 25 MG TAB PO SCH ×3 (05:57→21:35)
[2018-09-09 06:00] VITALS: BP 128/61
[2018-09-09] MEDS: HumaLOG INSULIN (NovoLOG) PER UNIT SC SCH ×4 (08:09→21:00)
[2018-09-09] MEDS: ATORVASTATIN 20 MG TAB PO SCH (08:10)
[2018-09-09] MEDS: CALCITRIOL 0.25 MCG CAP (S0169) PO SCH (08:10)
[2018-09-09] MEDS: CLOPIDOGREL 75 MG TAB PO SCH (08:10)
[2018-09-09] MEDS: FLUoxetine 20 MG CAP PO SCH (08:11)
[2018-09-09] MEDS: OMEPRAZOLE 20 MG CAP PO SCH (08:11)
[2018-09-09] MEDS: MINOXIDIL 2.5 MG TAB PO SCH ×2 (08:11→21:37)
[2018-09-09] MEDS: SENNA 8.6 MG TAB (SENOKOT) PO SCH ×2 (08:11→21:36)
[2018-09-09] MEDS: FERROUS SULFATE 325MG TAB PO SCH (08:12)
[2018-09-09] MEDS: amLODIPine 10 MG TAB PO SCH (08:12)
[2018-09-09] MEDS: GABAPENTIN 300 MG CAP PO SCH (08:12)
[2018-09-09] MEDS: DRONABINOL 2.5 MG CAP (MARINOL) PO SCH ×2 (08:12→21:36)
[2018-09-09] MEDS: MEGESTROL 40 MG TAB PO SCH (08:12)
[2018-09-09 09:50] LABS: HEMATOCRIT 24.9 % (42.0-52.0); HEMOGLOBIN 8.4 g/dl (13.5-17.5); MEAN CORPUSCULAR HEMOGLOBIN 30.3 pg (27.0-33.0); MEAN CORPUSCULAR HGB CONC 33.7 g/dl (32.0-36.5); MEAN CORPUSCULAR VOLUME 89.9 fl (80.0-96.0); PLATELET COUNT, AUTOMATED 270 10^3/uL (150-450); RED BLOOD COUNT 2.77 10^6/uL (4.30-6.10); WHITE BLOOD COUNT 7.4 10^3/uL (4.0-10.0)
[2018-09-09 09:55] LABS: CALCIUM LEVEL 10.3 MG/DL (8.8-10.2); CREATININE FOR GFR 2.6 MG/DL (0.70-1.30); GLOMERULAR FILTRATION RATE 25.3 (>35); POTASSIUM SERUM 3.9 MEQ/L (3.5-5.1)
[2018-09-09 14:00] VITALS: BP 159/70
--- NOTE | 2018-09-09 19:33 | IPNPDOC ---
Text Note Date of Service The patient was seen on 09/09/18. NOTE SUBJECTIVE: The patient is seen and examined in the room today. Patient denies acute change. Denies fever or chill. Denies shortness of breathing for chest pain. OBJECTIVE: VITAL SIGNS: Listed below. GENERAL: No sign of acute distress. Patient alert and awake. HEENT: Normocephalic, atraumatic. Extraocular motor grossly intact. CARDIOVASCULAR: Positive S1, S2, regular rate. LUNGS: Clear to auscultation bilaterally. ABDOMEN: Soft, nontender. EXTREMITIES: No tenderness to palpation. No lower extremity swelling. LABORATORY DATA: Listed below. ASSESSMENT AND PLAN: #. Severe dementia. - S/P treatment for Aerococcus urinary tract infection. Mentation is at baseline. - Pending nursing placement. #. Acute on chronic kidney disease. - At baseline, patient has chronic kidney disease stage IV. Continue to monitor the patient. # Metabolic encephalopathy secondary to UTI. Resolved. # Protein caloric malnutrition. - Poor oral intake. Enzure supplement TID ordered. Encourage increasing oral intake. - On Marinol and megace. #. Diabetes. On sliding scale and consistent carbohydrate diet. #. Anxiety/depression. On Seroquel and Prozac. #. BPH. #. Hypertension. On Norvasc, hydralazine. #. Deep vein thrombosis (DVT) prophylaxis. On thromboembolism deterrent (DIANNE) compression. VS,Fishbone, I+O VS, Fishbone, I+O Laboratory Tests 09/09/18 09:20 Red Blood Count 2.77 L, Mean Corpuscular Volume 89.9, Mean Corpuscular Hemoglobin 30.3, Mean Corpuscular Hemoglobin Concent 33.7, Red Cell Distribution Width 13.9, Calcium Level 10.3 H Vital Signs Date Time Temp Pulse Resp B/P (MAP) Pulse Ox O2 Delivery O2 Flow Rate FiO2 09/09/18 14:31 159/70 09/09/18 14:00 98.0 97 20 97 I&O- Last 24 Hours up to 6 AM 09/09/18 06:00 Intake Total 960 ml Output Total 0 ml Balance 960 ml CORINNE MEZA DO Sep 09, 2018 19:33
[2018-09-09 22:00] VITALS: BP 104/58
[2018-09-10 06:00] VITALS: BP 163/69
[2018-09-10] MEDS: **hydrALAZINE HCL** 25 MG TAB PO SCH ×3 (06:00→21:55)
[2018-09-10 07:42] LABS: HEMATOCRIT 23.7 % (42.0-52.0); MEAN CORPUSCULAR HGB CONC 33.8 g/dl (32.0-36.5); MEAN CORPUSCULAR VOLUME 88.8 fl (80.0-96.0); PLATELET COUNT, AUTOMATED 277 10^3/uL (150-450); RED BLOOD COUNT 2.67 10^6/uL (4.30-6.10); WHITE BLOOD COUNT 6.5 10^3/uL (4.0-10.0)
[2018-09-10] MEDS: HumaLOG INSULIN (NovoLOG) PER UNIT SC SCH ×4 (07:50→21:00)
[2018-09-10 08:16] LABS: CALCIUM LEVEL 9.9 MG/DL (8.8-10.2); CREATININE FOR GFR 2.52 MG/DL (0.70-1.30); GLOMERULAR FILTRATION RATE 26.2 (>35); POTASSIUM SERUM 3.7 MEQ/L (3.5-5.1)
[2018-09-10] MEDS: CINACALCET 30 MG TAB (SENSIPAR) PO SCH (10:13)
[2018-09-10] MEDS: MEGESTROL 40 MG TAB PO SCH (10:13)
[2018-09-10] MEDS: CLOPIDOGREL 75 MG TAB PO SCH (10:14)
[2018-09-10] MEDS: SENNA 8.6 MG TAB (SENOKOT) PO SCH ×2 (10:15→20:29)
[2018-09-10] MEDS: OMEPRAZOLE 20 MG CAP PO SCH (10:15)
[2018-09-10] MEDS: ATORVASTATIN 20 MG TAB PO SCH (10:15)
[2018-09-10] MEDS: GABAPENTIN 300 MG CAP PO SCH (10:17)
[2018-09-10] MEDS: amLODIPine 10 MG TAB PO SCH (10:17)
[2018-09-10] MEDS: DRONABINOL 2.5 MG CAP (MARINOL) PO SCH ×2 (10:18→20:29)
[2018-09-10] MEDS: FERROUS SULFATE 325MG TAB PO SCH (10:18)
[2018-09-10] MEDS: CALCITRIOL 0.25 MCG CAP (S0169) PO SCH (10:22)
[2018-09-10] MEDS: MINOXIDIL 2.5 MG TAB PO SCH ×2 (10:23→20:29)
[2018-09-10] MEDS: FLUoxetine 20 MG CAP PO SCH (10:23)
--- NOTE | 2018-09-10 15:22 | IPNPDOC ---
Text Note Date of Service The patient was seen on 09/10/18. NOTE SUBJECTIVE: The patient is seen and examined in the room today. Patient continues demonstrating sign of dementia. Patient denies acute change. OBJECTIVE: VITAL SIGNS: Listed below. GENERAL: No sign of acute distress. Patient alert and awake. Signs of dementia. HEENT: Normocephalic, atraumatic. Extraocular motor grossly intact. CARDIOVASCULAR: Positive S1, S2, regular rate. LUNGS: Clear to auscultation bilaterally. ABDOMEN: Soft, nontender. EXTREMITIES: No lower extremity swelling. LABORATORY DATA: Listed below. ASSESSMENT AND PLAN: #. Severe dementia. - S/P treatment for Aerococcus urinary tract infection. Mentation is at baseline. - Pending nursing placement. #. Acute on chronic kidney disease. - At baseline, patient has chronic kidney disease stage IV. Continue to monitor the patient. # Metabolic encephalopathy secondary to UTI. Resolved. # Protein caloric malnutrition. - Poor oral intake. Enzure supplement TID ordered. Encourage increasing oral intake. - On Marinol and megace. #. Diabetes. On sliding scale and consistent carbohydrate diet. #. Anxiety/depression. On Seroquel and Prozac. #. BPH. #. Hypertension. On Norvasc, hydralazine. #. Deep vein thrombosis (DVT) prophylaxis. On thromboembolism deterrent (DIANNE) co mpression. VS,Fishbone, I+O VS, Fishbone, I+O Laboratory Tests 09/10/18 07:01 Red Blood Count 2.67 L, Mean Corpuscular Volume 88.8, Mean Corpuscular Hemogl obin 30.0, Mean Corpuscular Hemoglobin Concent 33.8, Red Cell Distribution Width 14.0, Calcium Level 9.9 Vital Signs Date Time Temp Pulse Resp B/P (MAP) Pulse Ox O2 Delivery O2 Flow Rate FiO2 09/10/18 14:06 151/60 09/10/18 10:17 70 09/10/18 06:00 99.2 20 96 I&O- Last 24 Hours up to 6 AM 09/10/18 06:00 Intake Total 1520 ml Balance 1520 ml CORINNE MEZA DO Sep 10, 2018 15:22
[2018-09-10 22:00] VITALS: BP 154/67
[2018-09-11 06:00] VITALS: BP 129/67
[2018-09-11] MEDS: **hydrALAZINE HCL** 25 MG TAB PO SCH ×3 (06:31→21:01)
[2018-09-11 07:02] LABS: HEMATOCRIT 23.5 % (42.0-52.0); HEMOGLOBIN 7.9 g/dl (13.5-17.5); MEAN CORPUSCULAR HEMOGLOBIN 30.2 pg (27.0-33.0); MEAN CORPUSCULAR HGB CONC 33.6 g/dl (32.0-36.5); MEAN CORPUSCULAR VOLUME 89.7 fl (80.0-96.0); PLATELET COUNT, AUTOMATED 271 10^3/uL (150-450); RED BLOOD COUNT 2.62 10^6/uL (4.30-6.10); WHITE BLOOD COUNT 5.9 10^3/uL (4.0-10.0)
[2018-09-11 08:02] LABS: CREATININE FOR GFR 2.53 MG/DL (0.70-1.30); GLOMERULAR FILTRATION RATE 26.1 (>35); POTASSIUM SERUM 3.8 MEQ/L (3.5-5.1)
[2018-09-11] MEDS: CALCITRIOL 0.25 MCG CAP (S0169) PO SCH (08:15)
[2018-09-11] MEDS: HumaLOG INSULIN (NovoLOG) PER UNIT SC SCH ×4 (08:16→21:00)
[2018-09-11] MEDS: CINACALCET 30 MG TAB (SENSIPAR) PO SCH (08:16)
[2018-09-11] MEDS: FLUoxetine 20 MG CAP PO SCH (08:16)
[2018-09-11] MEDS: amLODIPine 10 MG TAB PO SCH (08:17)
[2018-09-11] MEDS: MEGESTROL 40 MG TAB PO SCH (08:17)
[2018-09-11] MEDS: CLOPIDOGREL 75 MG TAB PO SCH (08:17)
[2018-09-11] MEDS: SENNA 8.6 MG TAB (SENOKOT) PO SCH ×2 (08:17→21:00)
[2018-09-11] MEDS: GABAPENTIN 300 MG CAP PO SCH (08:17)
[2018-09-11] MEDS: OMEPRAZOLE 20 MG CAP PO SCH (08:17)
[2018-09-11] MEDS: ATORVASTATIN 20 MG TAB PO SCH (08:17)
[2018-09-11] MEDS: DRONABINOL 2.5 MG CAP (MARINOL) PO SCH ×2 (08:18→21:00)
[2018-09-11] MEDS: FERROUS SULFATE 325MG TAB PO SCH (08:18)
[2018-09-11] MEDS: MINOXIDIL 2.5 MG TAB PO SCH ×2 (08:18→21:01)
[2018-09-11 14:00] VITALS: BP 179/73
--- NOTE | 2018-09-11 14:16 | REP ---
RIGHT UPPER EXTREMITY DUPLEX DOPPLER VENOUS ULTRASOUND: Real-time compression and duplex Doppler interrogation of the right upper extremity deep vein system is performed. No thrombus is seen in the visualized right jugular, subclavian, axillary, or brachial veins, with no evidence of deep vein thrombosis. There is partial thrombosis of the medial cubital vein at its superior aspect, representing a superficial vein partial thrombosis. Incidental note is made of a nodule in the right lobe of the thyroid, which is predominantly cystic containing mild internal solid components and septations. It measures 1.4 x 1.1 x 0.9 cm. Electronically Signed by Vidal Pina MD 09/12/2018 09:51 A
--- NOTE | 2018-09-11 15:39 | IPNPDOC ---
Subjective Date Seen The patient was seen on 09/11/18. Subjective Chief Complaint/HPI Patient seen and examined at the bedside. The patient's right upper extremity, antecubital area noted to be edematous near the IV site this morning. Distally the patient's extremity is neurovascularly intact and he does not endorse any complaints of pain or discomfort. An ultrasound of the extremity has been ordered. Objective Physical Examination General Exam: Positive: Alert, Cooperative, No Acute Distress ENT Exam: Positive: Atraumatic, Mucous membr. moist/pink Neck Exam: Negative: JVD Chest Exam: Positive: Clear to auscultation, Normal air movement Heart Exam: Positive: Rate Normal, Normal S1, Normal S2 Abdomen Exam: Positive: Soft; Negative: Tenderness Extremity Exam: Positive: Other (RUE notable for edema extending from the AC vein where previous IV was. Extremity neurovascularly intact. No pain on palpation); Negative: Tenderness Assessment /Plan Plan/VTE VTE Prophylaxis Ordered?: Yes Plan Dementia, advanced CT head is negative Urine culture was positive for Aerococcus Urinae s/p amoxicillin trial Family members state that the patient's current mentation is back to baseline after Abx treatment Acute kidney injury on Chronic kidney disease stage IV, resolved Serum Cr back to baseline Chronic Osteoarthritis F/U as outpatient Diabetes. Cont on sliding scale, consistent carbohydrate diet, hypoglycemia protocol. Anxiety/Depression Cont Seroquel, Prozac GERD Cont PPI Hypertension Cont current regimen Dyslipidemia Cont Statin Decreased Appetite Cont Megace, Marinol PO intake encouraged Deep vein thrombosis (DVT) prophylaxis SCDs/TEDs VS, I&O, 24H, Fishbone Vital Signs/I&O Vital Signs Date Time Temp Pulse Resp B/P (MAP) Pulse Ox O2 Delivery O2 Flow Rate FiO2 09/11/18 14:20 158/60 09/11/18 14:00 98.4 68 16 97 I&O- Last 24 Hours up to 6 AM 09/11/18 06:00 Intake Total 1640 ml Output Total 0 ml Balance 1640 ml Laboratory Data 24H LABS Laboratory Tests 2 09/10/18 16:17: Bedside Glucose (Misc Panel) 130H 09/10/18 19:57: Bedside Glucose (Misc Panel) 162H 09/11/18 06:29: Nucleated Red Blood Cells % (auto) 0.0, Anion Gap 8, Glomerular Filtration Rate 26.1L, Blood Urea Nitrogen 28H, Creatinine 2.53H, Sodium Level 143, Potassium Level 3.8, Chloride Level 113H, Carbon Dioxide Level 22, Calcium Level 10.0, Magnesium Level 2.0 09/11/18 12:12: Bedside Glucose (Misc Panel) 99 CBC/BMP Laboratory Tests 09/11/18 06:29 Red Blood Count 2.62 L, Mean Corpuscular Volume 89.7, Mean Corpuscular Hemoglobin 30.2, Mean Corpuscular Hemoglobin Concent 33.6, Red Cell Distribution Width 14.1, Calcium Level 10.0 MELODY YOON MD Sep 11, 2018 15:39
[2018-09-11 15:56] VITALS: BP 150/58
[2018-09-11 22:00] VITALS: BP 147/59
[2018-09-12 06:00] VITALS: BP 137/63
[2018-09-12] MEDS: **hydrALAZINE HCL** 25 MG TAB PO SCH ×3 (06:12→21:44)
[2018-09-12 06:59] LABS: HEMATOCRIT 23.6 % (42.0-52.0); HEMOGLOBIN 7.9 g/dl (13.5-17.5); MEAN CORPUSCULAR HGB CONC 33.5 g/dl (32.0-36.5); MEAN CORPUSCULAR VOLUME 89.7 fl (80.0-96.0); PLATELET COUNT, AUTOMATED 271 10^3/uL (150-450); RED BLOOD COUNT 2.63 10^6/uL (4.30-6.10); WHITE BLOOD COUNT 6.9 10^3/uL (4.0-10.0)
[2018-09-12 07:17] LABS: CALCIUM LEVEL 9.9 MG/DL (8.8-10.2); CREATININE FOR GFR 2.53 MG/DL (0.70-1.30); GLOMERULAR FILTRATION RATE 26.1 (>35); MAGNESIUM LEVEL 2.2 MG/DL (1.8-2.4); POTASSIUM SERUM 3.6 MEQ/L (3.5-5.1)
[2018-09-12] MEDS: HumaLOG INSULIN (NovoLOG) PER UNIT SC SCH ×4 (07:30→21:00)
[2018-09-12] MEDS: CINACALCET 30 MG TAB (SENSIPAR) PO SCH (08:53)
[2018-09-12] MEDS: FLUoxetine 20 MG CAP PO SCH (08:53)
[2018-09-12] MEDS: DRONABINOL 2.5 MG CAP (MARINOL) PO SCH ×2 (08:55→21:43)
[2018-09-12] MEDS: MINOXIDIL 2.5 MG TAB PO SCH ×2 (08:55→21:44)
[2018-09-12] MEDS: CALCITRIOL 0.25 MCG CAP (S0169) PO SCH (08:55)
[2018-09-12] MEDS: CLOPIDOGREL 75 MG TAB PO SCH (08:55)
[2018-09-12] MEDS: OMEPRAZOLE 20 MG CAP PO SCH (08:56)
[2018-09-12] MEDS: FERROUS SULFATE 325MG TAB PO SCH (08:56)
[2018-09-12] MEDS: ATORVASTATIN 20 MG TAB PO SCH (08:56)
[2018-09-12] MEDS: GABAPENTIN 300 MG CAP PO SCH (08:56)
[2018-09-12] MEDS: MEGESTROL 40 MG TAB PO SCH (08:56)
[2018-09-12] MEDS: SENNA 8.6 MG TAB (SENOKOT) PO SCH ×2 (08:56→21:43)
[2018-09-12] MEDS: amLODIPine 10 MG TAB PO SCH (08:56)
[2018-09-12 09:18] LABS: PERCENT SATURATION 20.7 % (19.7-50.0)
[2018-09-12 09:37] LABS: FOLATE 16.7 NG/ML (>5.4)
[2018-09-12 14:00] VITALS: BP 154/61
--- NOTE | 2018-09-12 14:51 | IPNPDOC ---
Subjective Date Seen The patient was seen on 09/12/18. Subjective Chief Complaint/HPI Patient seen and examined at the bedside. No acute overnight events noted. Objective Physical Examination General Exam: Positive: Alert, Cooperative, No Acute Distress ENT Exam: Positive: Atraumatic, Mucous membr. moist/pink Neck Exam: Negative: JVD Chest Exam: Positive: Clear to auscultation, Normal air movement Heart Exam: Positive: Rate Normal, Normal S1, Normal S2 Abdomen Exam: Positive: Soft; Negative: Tenderness Extremity Exam: Positive: Other (RUE notable for edema extending from the AC vein where previous IV was. Extremity neurovascularly intact. No pain on palpation. Edema improving); Negative: Tenderness Assessment /Plan Plan/VTE VTE Prophylaxis Ordered?: Yes Plan Dementia, advanced CT head is negative Urine culture was positive for Aerococcus Urinae s/p amoxicillin trial Family members state that the patient's current mentation is back to baseline after Abx treatment Acute kidney injury on Chronic kidney disease stage IV, resolved Serum Cr back to baseline Chronic Osteoarthritis F/U as outpatient RUE Superficial Vein Partial Thrombosis IV Site removed, supportive treatment ordered Diabetes. Cont on sliding scale, consistent carbohydrate diet, hypoglycemia protocol. Anxiety/Depression Cont Seroquel, Prozac GERD Cont PPI Hypertension Cont current regimen Dyslipidemia Cont Statin Decreased Appetite Cont Megace, Marinol PO intake encouraged Deep vein thrombosis (DVT) prophylaxis SCDs/TEDs VS, I&O, 24H, Fishbone Vital Signs/I&O Vital Signs Date Time Temp Pulse Resp B/P (MAP) Pulse Ox O2 Delivery O2 Flow Rate FiO2 09/12/18 14:00 99.7 61 16 154/61 (92) 94 I&O- Last 24 Hours up to 6 AM 09/12/18 06:00 Intake Total 1440 ml Balance 1440 ml Laboratory Data 24H LABS Laboratory Tests 2 09/11/18 16:47: Bedside Glucose (Misc Panel) 130H 09/11/18 20:13: Bedside Glucose (Misc Panel) 103 09/12/18 06:24: Nucleated Red Blood Cells % (auto) 0.0, Anion Gap 9, Glomerular Filtration Rate 26.1L, Blood Urea Nitrogen 27H, Creatinine 2.53H, Sodium Level 144, Potassium L evel 3.6, Chloride Level 113H, Carbon Dioxide Level 22, Calcium Level 9.9, Magnesium Level 2.2 09/12/18 08:29: Iron Level 38L, Total Iron Binding Capacity 184L, Transferrin % Saturation 20.7, Ferritin 32, Vitamin B12 Level 342, Folate 16.7 09/12/18 11:09: Bedside Glucose (Misc Panel) 132H CBC/BMP Laboratory Tests 09/12/18 06:24 Red Blood Count 2.63 L, Mean Corpuscular Volume 89.7, Mean Corpuscular Hemoglobin 30.0, Mean Corpuscular Hemoglobin Concent 33.5, Red Cell Distribution Width 14.4, Calcium Level 9.9 MELODY YOON MD Sep 12, 2018 14:51
[2018-09-12 22:00] VITALS: BP 125/57
[2018-09-13] MEDS: **hydrALAZINE HCL** 25 MG TAB PO SCH ×3 (05:43→21:33)
[2018-09-13 06:00] VITALS: BP 131/62
[2018-09-13 07:21] LABS: HEMATOCRIT 22.5 % (42.0-52.0); HEMOGLOBIN 7.5 g/dl (13.5-17.5); MEAN CORPUSCULAR HEMOGLOBIN 29.4 pg (27.0-33.0); MEAN CORPUSCULAR HGB CONC 33.3 g/dl (32.0-36.5); MEAN CORPUSCULAR VOLUME 88.2 fl (80.0-96.0); PLATELET COUNT, AUTOMATED 252 10^3/uL (150-450); RED BLOOD COUNT 2.55 10^6/uL (4.30-6.10); WHITE BLOOD COUNT 6.3 10^3/uL (4.0-10.0)
[2018-09-13 07:40] LABS: CALCIUM LEVEL 9.4 MG/DL (8.8-10.2); CREATININE FOR GFR 2.59 MG/DL (0.70-1.30); GLOMERULAR FILTRATION RATE 25.4 (>35); POTASSIUM SERUM 3.6 MEQ/L (3.5-5.1)
[2018-09-13] MEDS: HumaLOG INSULIN (NovoLOG) PER UNIT SC SCH ×4 (09:13→21:00)
[2018-09-13] MEDS: CLOPIDOGREL 75 MG TAB PO SCH (09:14)
[2018-09-13] MEDS: CALCITRIOL 0.25 MCG CAP (S0169) PO SCH (09:14)
[2018-09-13] MEDS: FERROUS SULFATE 325MG TAB PO SCH ×2 (09:14→21:32)
[2018-09-13] MEDS: CINACALCET 30 MG TAB (SENSIPAR) PO SCH (09:14)
[2018-09-13] MEDS: GABAPENTIN 300 MG CAP PO SCH (09:15)
[2018-09-13] MEDS: DRONABINOL 2.5 MG CAP (MARINOL) PO SCH ×2 (09:15→21:32)
[2018-09-13] MEDS: OMEPRAZOLE 20 MG CAP PO SCH (09:15)
[2018-09-13] MEDS: FLUoxetine 20 MG CAP PO SCH (09:15)
[2018-09-13] MEDS: SENNA 8.6 MG TAB (SENOKOT) PO SCH ×2 (09:15→21:31)
[2018-09-13] MEDS: amLODIPine 10 MG TAB PO SCH (09:15)
[2018-09-13] MEDS: ATORVASTATIN 20 MG TAB PO SCH (09:15)
[2018-09-13] MEDS: MEGESTROL 40 MG TAB PO SCH (09:15)
[2018-09-13] MEDS: MINOXIDIL 2.5 MG TAB PO SCH ×2 (09:15→21:33)
[2018-09-13 14:00] VITALS: BP 146/67
--- NOTE | 2018-09-13 15:29 | IPNPDOC ---
Subjective Date Seen The patient was seen on 09/13/18. Subjective Chief Complaint/HPI Patient seen and examined at the bedside. He denies any acute complaints at this time, and notes that the swelling in his right upper extremity is improved. Of note, the patient's hemoglobin continue to remain below 8. Consent obtained from the patient's daughter via telephone. We will transfuse the patient 1 unit of packed red blood cells. Objective Physical Examination General Exam: Positive: Alert, Cooperative, No Acute Distress ENT Exam: Positive: Atraumatic, Mucous membr. moist/pink Neck Exam: Negative: JVD Chest Exam: Positive: Clear to auscultation, Normal air movement Heart Exam: Positive: Rate Normal, Normal S1, Normal S2 Abdomen Exam: Positive: Soft; Negative: Tenderness Extremity Exam: Positive: Other (RUE notable for edema extending from the AC vein where previous IV was. Extremity neurovascularly intact. No pain on palpation. Edema improving); Negative: Tenderness Assessment /Plan Plan/VTE VTE Prophylaxis Ordered?: Yes Plan Dementia, advanced CT head is negative Urine culture was positive for Aerococcus Urinae s/p amoxicillin trial Family members state that the patient's current mentation is back to baseline after Abx treatment Normocytic Anemia likely 2/2 AOKD, Iron Deficiency Iron Studies noted-->Iron supplementation increased Stool Occult study pending Hgb continues to be less than 8 this morning-->1 Unit of PRBC's ordered We will cont to monitor the patient Acute kidney injury on Chronic kidney disease stage IV, resolved Serum Cr back to baseline Chronic Osteoarthritis F/U as outpatient RUE Superficial Vein Partial Thrombosis IV Site removed, supportive treatment ordered Diabetes. Cont on sliding scale, consistent carbohydrate diet, hypoglycemia protocol. Anxiety/Depression Cont Seroquel, Prozac GERD Cont PPI Hypertension Cont current regimen Dyslipidemia Cont Statin Decreased Appetite Cont Megace, Marinol PO intake encouraged Deep vein thrombosis (DVT) prophylaxis SCDs/TEDs VS, I&O, 24H, Fishbone Vital Signs/I&O Vital Signs Date Time Temp Pulse Resp B/P (MAP) Pulse Ox O2 Delivery O2 Flow Rate FiO2 09/13/18 14:12 146/67 09/13/18 14:00 99.4 61 19 92 I&O- Last 24 Hours up to 6 AM 09/13/18 06:00 Intake Total 1020 ml Balance 1020 ml Laboratory Data 24H LABS Laboratory Tests 2 09/12/18 16:54: Bedside Glucose (Misc Panel) 105 09/12/18 20:21: Bedside Glucose (Misc Panel) 130H 09/13/18 06:57: Nucleated Red Blood Cells % (auto) 0.0, Anion Gap 6L, Glomerular Filtration Rate 25.4L, Blood Urea Nitrogen 27H, Creatinine 2.59H, Sodium Level 143, Potassium Level 3.6, Chloride Level 115H, Carbon Dioxide Level 22, Calcium Level 9.4, Magnesium Level 2.0 CBC/BMP Laboratory Tests 09/13/18 06:57 Red Blood Count 2.55 L, Mean Corpuscular Volume 88.2, Mean Corpuscular Hemoglobin 29.4, Mean Corpuscular Hemoglobin Concent 33.3, Red Cell Distribution Width 14.2, Calcium Level 9.4 MELODY YOON MD Sep 13, 2018 15:29
[2018-09-13 22:00] VITALS: BP 141/72
--- NOTE | 2018-09-13 23:42 | ECHO ---
DATE OF PROCEDURE: 09/13/2018 REFERRING PHYSICIAN: Dr. Hernesto Salinas INDICATION: Cardiac murmur, unspecified. HEIGHT: 178 cm WEIGHT: 75 kg 2D MEASUREMENTS: Ventricular septum: 1.18 cm Posterior wall: 1.20 cm Left ventricle diastole: 5.1 cm Left atrium: 4.2 cm Aortic root: 3.8 cm Inferior vena cava: 1.9 cm DOPPLER MEASUREMENTS: Aortic valve velocity: 219 cm/s LVOT velocity: 103 cm/s LVOT VTI: 22.1 cm No mitral regurgitation. Mitral E velocity: 106 cm/s Mitral A velocity: 118 cm/s Mitral deceleration time: 246 ms Very mild tricuspid regurgitation. Pulmonary artery systolic pressure: 28 mmHg. MITRAL ANNULAR TISSUE DOPPLER: E prime septal: 7.9 cm/s E prime lateral: 6.85 cm/s DESCRIPTION: Rhythm was sinus. This was a moderately technically difficult echocardiogram. No pericardial effusion. This was a 2D, M-mode, color flow Doppler and pulse wave Doppler examination and included mitral annular tissue Doppler. CONCLUSIONS: 1. Mild aortic valve sclerosis of a 3-cusp aortic valve. No aortic stenosis or regurgitation. 2. Normal left ventricle internal dimensions and wall thickness. Normal regional left ventricular (LV) wall motion and wall thickening. Normal LV systolic function. Left ventricular ejection fraction (LVEF) 60% by visual estimate. Grade 1 LV diastolic dysfunction. 3. Mild dilatation of the aortic root at the level of the sinus of Valsalva (3.8 cm). 4. Mild mitral annular calcification. No mitral regurgitation. 5. Moderately technically difficult echocardiogram.
[2018-09-14] MEDS: **hydrALAZINE HCL** 25 MG TAB PO SCH ×3 (05:43→22:00)
[2018-09-14 06:00] VITALS: BP 138/79
[2018-09-14 06:37] LABS: HEMATOCRIT 24.4 % (42.0-52.0); HEMOGLOBIN 8.2 g/dl (13.5-17.5); MEAN CORPUSCULAR HEMOGLOBIN 29.5 pg (27.0-33.0); MEAN CORPUSCULAR HGB CONC 33.6 g/dl (32.0-36.5); MEAN CORPUSCULAR VOLUME 87.8 fl (80.0-96.0); PLATELET COUNT, AUTOMATED 243 10^3/uL (150-450); RED BLOOD COUNT 2.78 10^6/uL (4.30-6.10); WHITE BLOOD COUNT 6.2 10^3/uL (4.0-10.0)
[2018-09-14 07:02] LABS: CALCIUM LEVEL 9.6 MG/DL (8.8-10.2); CREATININE FOR GFR 2.55 MG/DL (0.70-1.30); GLOMERULAR FILTRATION RATE 25.9 (>35); POTASSIUM SERUM 3.7 MEQ/L (3.5-5.1)
[2018-09-14] MEDS: HumaLOG INSULIN (NovoLOG) PER UNIT SC SCH ×4 (10:16→21:00)
[2018-09-14] MEDS: OMEPRAZOLE 20 MG CAP PO SCH (10:17)
[2018-09-14] MEDS: FLUoxetine 20 MG CAP PO SCH (10:17)
[2018-09-14] MEDS: ATORVASTATIN 20 MG TAB PO SCH (10:17)
[2018-09-14] MEDS: GABAPENTIN 300 MG CAP PO SCH (10:17)
[2018-09-14] MEDS: amLODIPine 10 MG TAB PO SCH (10:17)
[2018-09-14] MEDS: DRONABINOL 2.5 MG CAP (MARINOL) PO SCH ×2 (10:17→22:56)
[2018-09-14] MEDS: FERROUS SULFATE 325MG TAB PO SCH ×2 (10:17→22:55)
[2018-09-14] MEDS: CALCITRIOL 0.25 MCG CAP (S0169) PO SCH (10:18)
[2018-09-14] MEDS: MINOXIDIL 2.5 MG TAB PO SCH ×2 (10:18→22:55)
[2018-09-14] MEDS: SENNA 8.6 MG TAB (SENOKOT) PO SCH ×2 (10:18→22:55)
[2018-09-14] MEDS: CINACALCET 30 MG TAB (SENSIPAR) PO SCH (10:18)
[2018-09-14] MEDS: CLOPIDOGREL 75 MG TAB PO SCH (10:18)
[2018-09-14] MEDS: MEGESTROL 40 MG TAB PO SCH (10:18)
[2018-09-14 14:00] VITALS: BP 168/82
--- NOTE | 2018-09-14 15:12 | IPNPDOC ---
Subjective Date Seen The patient was seen on 09/14/18. Subjective Chief Complaint/HPI Patient seen and examined at the bedside. Denies any acute complaints. Bedside nurse reports that he has had a decreased by mouth intake today. Otherwise, no acute events noted. Objective Physical Examination General Exam: Positive: Alert, Cooperative, No Acute Distress ENT Exam: Positive: Atraumatic, Mucous membr. moist/pink Neck Exam: Negative: JVD Chest Exam: Positive: Clear to auscultation, Normal air movement Heart Exam: Positive: Rate Normal, Normal S1, Normal S2 Abdomen Exam: Positive: Soft; Negative: Tenderness Extremity Exam: Positive: Other (RUE notable for edema extending from the AC vein where previous IV was. Extremity neurovascularly intact. No pain on palpation. Edema improving); Negative: Tenderness Assessment /Plan Plan/VTE VTE Prophylaxis Ordered?: Yes Plan Dementia, advanced CT head is negative Urine culture was positive for Aerococcus Urinae s/p amoxicillin trial Family members state that the patient's current mentation is back to baseline after Abx treatment Normocytic Anemia likely 2/2 AOKD, Iron Deficiency Iron Studies noted-->Iron supplementation increased Stool Occult study positive, no acute or overt bleeding noted--no indication for an urgent colonoscopy at this time, f/u as outpatient s/p 1 Unit of PRBC transfusion We will cont to monitor the patient Acute kidney injury on Chronic kidney disease stage IV, resolved Serum Cr back to baseline Chronic Osteoarthritis F/U as outpatient RUE Superficial Vein Partial Thrombosis IV Site removed, supportive treatment ordered Diabetes. Cont on sliding scale, consistent carbohydrate diet, hypoglycemia protocol. Anxiety/Depression Cont Seroquel, Prozac GERD Cont PPI Hypertension Cont current regimen Dyslipidemia Cont Statin Decreased Appetite Cont Megace, Marinol PO intake encouraged Deep vein thrombosis (DVT) prophylaxis SCDs/TEDs VS, I&O, 24H, Fishbone Vital Signs/I&O Vital Signs Date Time Temp Pulse Resp B/P (MAP) Pulse Ox O2 Delivery O2 Flow Rate FiO2 09/14/18 10:18 138/79 09/14/18 10:17 69 09/14/18 06:00 98.9 19 96 I&O- Last 24 Hours up to 6 AM 09/14/18 06:00 Intake Total 2340 ml Balance 2340 ml Laboratory Data 24H LABS Laboratory Tests 2 09/13/18 16:15: Bedside Glucose (Misc Panel) 67L 09/13/18 18:16: Bedside Glucose (Misc Panel) 93 09/13/18 21:02: Bedside Glucose (Misc Panel) 128H 09/14/18 06:20: Nucleated Red Blood Cells % (auto) 0.0, Anion Gap 8, Glomerular Filtration Rate 25.9L, Blood Urea Nitrogen 28H, Creatinine 2.55H, Sodium Level 144, Potassium Level 3.7, Chloride Level 115H, Carbon Dioxide Level 21, Calcium Level 9.6, Magnesium Level 2.0 09/14/18 11:42: Bedside Glucose (Misc Panel) 138H CBC/BMP Laboratory Tests 09/14/18 06:20 Red Blood Count 2.78 L, Mean Corpuscular Volume 87.8, Mean Corpuscular Hemoglobin 29.5, Mean Corpuscular Hemoglobin Concent 33.6, Red Cell Distribution Width 14.3, Calcium Level 9.6 Microbiology Microbiology 09/13/18 Stool Occult Blood (DOLORES) - Final, Complete MELODY YOON MD Sep 14, 2018 15:12
[2018-09-14 22:00] VITALS: BP 114/57
[2018-09-15 06:00] VITALS: BP 149/67
[2018-09-15] MEDS: **hydrALAZINE HCL** 25 MG TAB PO SCH ×3 (06:12→22:13)
[2018-09-15 06:36] LABS: HEMATOCRIT 24.8 % (42.0-52.0); HEMOGLOBIN 8.5 g/dl (13.5-17.5); MEAN CORPUSCULAR HEMOGLOBIN 29.8 pg (27.0-33.0); MEAN CORPUSCULAR HGB CONC 34.3 g/dl (32.0-36.5); PLATELET COUNT, AUTOMATED 247 10^3/uL (150-450); RED BLOOD COUNT 2.85 10^6/uL (4.30-6.10); WHITE BLOOD COUNT 6.5 10^3/uL (4.0-10.0)
[2018-09-15 06:58] LABS: CALCIUM LEVEL 9.5 MG/DL (8.8-10.2); CREATININE FOR GFR 2.49 MG/DL (0.70-1.30); GLOMERULAR FILTRATION RATE 26.6 (>35); MAGNESIUM LEVEL 1.9 MG/DL (1.8-2.4); POTASSIUM SERUM 3.5 MEQ/L (3.5-5.1)
[2018-09-15] MEDS: HumaLOG INSULIN (NovoLOG) PER UNIT SC SCH ×4 (07:30→21:00)
[2018-09-15] MEDS: FERROUS SULFATE 325MG TAB PO SCH ×2 (08:49→22:14)
[2018-09-15] MEDS: MEGESTROL 40 MG TAB PO SCH (08:49)
[2018-09-15] MEDS: SENNA 8.6 MG TAB (SENOKOT) PO SCH ×2 (08:49→22:13)
[2018-09-15] MEDS: OMEPRAZOLE 20 MG CAP PO SCH (08:49)
[2018-09-15] MEDS: ATORVASTATIN 20 MG TAB PO SCH (08:49)
[2018-09-15] MEDS: DRONABINOL 2.5 MG CAP (MARINOL) PO SCH ×2 (08:49→22:13)
[2018-09-15] MEDS: GABAPENTIN 300 MG CAP PO SCH (08:49)
[2018-09-15] MEDS: CLOPIDOGREL 75 MG TAB PO SCH (08:49)
[2018-09-15] MEDS: amLODIPine 10 MG TAB PO SCH (08:49)
[2018-09-15] MEDS: MINOXIDIL 2.5 MG TAB PO SCH ×2 (08:50→22:14)
[2018-09-15] MEDS: CALCITRIOL 0.25 MCG CAP (S0169) PO SCH (08:50)
[2018-09-15] MEDS: FLUoxetine 20 MG CAP PO SCH (08:50)
[2018-09-15 14:00] VITALS: BP 166/88
--- NOTE | 2018-09-15 15:58 | IPNPDOC ---
Subjective Date Seen The patient was seen on 09/15/18. Subjective Chief Complaint/HPI Patient seen and examined at the bedside. No acute overnight events noted. Objective Physical Examination General Exam: Positive: Alert, Cooperative, No Acute Distress ENT Exam: Positive: Atraumatic, Mucous membr. moist/pink Neck Exam: Negative: JVD Chest Exam: Positive: Clear to auscultation, Normal air movement Heart Exam: Positive: Rate Normal, Normal S1, Normal S2 Abdomen Exam: Positive: Soft; Negative: Tenderness Extremity Exam: Positive: Other (RUE notable for edema extending from the AC vein where previous IV was. Extremity neurovascularly intact. No pain on palpation. Edema improving); Negative: Tenderness Assessment /Plan Plan/VTE VTE Prophylaxis Ordered?: Yes Plan Dementia, advanced CT head is negative Urine culture was positive for Aerococcus Urinae s/p amoxicillin trial Family members state that the patient's current mentation is back to baseline after Abx treatment Normocytic Anemia likely 2/2 AOKD, Iron Deficiency Iron Studies noted-->Iron supplementation increased Stool Occult study positive, no acute or overt bleeding noted--no indication for an urgent colonoscopy at this time, f/u as outpatient s/p 1 Unit of PRBC transfusion We will cont to monitor the patient Acute kidney injury on Chronic kidney disease stage IV, resolved Serum Cr back to baseline Chronic Osteoarthritis F/U as outpatient RUE Superficial Vein Partial Thrombosis IV Site removed, supportive treatment ordered Diabetes. Cont on sliding scale, consistent carbohydrate diet, hypoglycemia protocol. Anxiety/Depression Cont Seroquel, Prozac GERD Cont PPI Hypertension Cont current regimen Dyslipidemia Cont Statin Decreased Appetite Cont Megace, Marinol PO intake encouraged Deep vein thrombosis (DVT) prophylaxis SCDs/TEDs VS, I&O, 24H, Fishbone Vital Signs/I&O Vital Signs Date Time Temp Pulse Resp B/P (MAP) Pulse Ox O2 Delivery O2 Flow Rate FiO2 09/15/18 14:48 166/88 09/15/18 14:00 98.0 58 18 96 I&O- Last 24 Hours up to 6 AM 09/15/18 06:00 Intake Total 710 ml Balance 710 ml Laboratory Data 24H LABS Laboratory Tests 2 09/14/18 17:12: Bedside Glucose (Misc Panel) 102 09/14/18 20:17: Bedside Glucose (Misc Panel) 119H 09/15/18 06:19: Nucleated Red Blood Cells % (auto) 0.0, Anion Gap 8, Glomerular Filtration Rate 26.6L, Blood Urea Nitrogen 28H, Creatinine 2.49H, Sodium Level 145, Potassium Level 3.5, Chloride Level 115H, Carbon Dioxide Level 22, Calcium Level 9.5, Mag nesium Level 1.9 09/15/18 11:26: Bedside Glucose (Misc Panel) 150H CBC/BMP Laboratory Tests 09/15/18 06:19 Red Blood Count 2.85 L, Mean Corpuscular Volume 87.0, Mean Corpuscular Hemoglobin 29.8, Mean Corpuscular Hemoglobin Concent 34.3, Red Cell Distribution Width 14.1, Calcium Level 9.5 Microbiology Microbiology 09/13/18 Stool Occult Blood (DOLORES) - Final, Complete MELODY YOON MD Sep 15, 2018 15:58
[2018-09-15 22:00] VITALS: BP 144/64
[2018-09-16] MEDS: **hydrALAZINE HCL** 25 MG TAB PO SCH ×3 (05:28→21:02)
[2018-09-16 06:00] VITALS: BP 118/59
[2018-09-16 06:46] LABS: HEMATOCRIT 25.8 % (42.0-52.0); HEMOGLOBIN 8.8 g/dl (13.5-17.5); MEAN CORPUSCULAR HEMOGLOBIN 30.1 pg (27.0-33.0); MEAN CORPUSCULAR HGB CONC 34.1 g/dl (32.0-36.5); MEAN CORPUSCULAR VOLUME 88.4 fl (80.0-96.0); PLATELET COUNT, AUTOMATED 260 10^3/uL (150-450); RED BLOOD COUNT 2.92 10^6/uL (4.30-6.10); WHITE BLOOD COUNT 6.8 10^3/uL (4.0-10.0)
[2018-09-16 06:51] LABS: CALCIUM LEVEL 9.8 MG/DL (8.8-10.2); CREATININE FOR GFR 2.35 MG/DL (0.70-1.30); GLOMERULAR FILTRATION RATE 28.4 (>35); POTASSIUM SERUM 3.6 MEQ/L (3.5-5.1)
[2018-09-16] MEDS: HumaLOG INSULIN (NovoLOG) PER UNIT SC SCH ×4 (07:30→21:00)
[2018-09-16] MEDS: CALCITRIOL 0.25 MCG CAP (S0169) PO SCH (09:23)
[2018-09-16] MEDS: OMEPRAZOLE 20 MG CAP PO SCH (09:24)
[2018-09-16] MEDS: GABAPENTIN 300 MG CAP PO SCH (09:24)
[2018-09-16] MEDS: FERROUS SULFATE 325MG TAB PO SCH ×2 (09:24→21:01)
[2018-09-16] MEDS: CLOPIDOGREL 75 MG TAB PO SCH (09:24)
[2018-09-16] MEDS: DRONABINOL 2.5 MG CAP (MARINOL) PO SCH ×2 (09:24→21:01)
[2018-09-16] MEDS: SENNA 8.6 MG TAB (SENOKOT) PO SCH ×2 (09:24→21:01)
[2018-09-16] MEDS: MINOXIDIL 2.5 MG TAB PO SCH ×2 (09:24→21:01)
[2018-09-16] MEDS: amLODIPine 10 MG TAB PO SCH (09:24)
[2018-09-16] MEDS: MEGESTROL 40 MG TAB PO SCH (09:24)
[2018-09-16] MEDS: FLUoxetine 20 MG CAP PO SCH (09:25)
[2018-09-16] MEDS: ATORVASTATIN 20 MG TAB PO SCH (09:25)
[2018-09-16 14:00] VITALS: BP 180/77
--- NOTE | 2018-09-16 15:27 | IPNPDOC ---
Subjective Date Seen The patient was seen on 09/16/18. Subjective Chief Complaint/HPI Patient seen and examined at the bedside. No acute overnight events noted. Patient does not offer any complaints at this time. Objective Physical Examination General Exam: Positive: Alert, Cooperative, No Acute Distress ENT Exam: Positive: Atraumatic, Mucous membr. moist/pink Neck Exam: Negative: JVD Chest Exam: Positive: Clear to auscultation, Normal air movement Heart Exam: Positive: Rate Normal, Normal S1, Normal S2 Abdomen Exam: Positive: Soft; Negative: Tenderness Extremity Exam: Negative: Tenderness, Swelling Assessment /Plan Plan/VTE VTE Prophylaxis Ordered?: Yes Plan Dementia, advanced CT head is negative Urine culture was positive for Aerococcus Urinae s/p amoxicillin trial Family members state that the patient's current mentation is back to baseline after Abx treatment Normocytic Anemia likely 2/2 AOKD, Iron Deficiency Iron Studies noted-->Iron supplementation increased Stool Occult study positive, no acute or overt bleeding noted--no indication for an urgent colonoscopy at this time, f/u as outpatient s/p 1 Unit of PRBC transfusion We will cont to monitor the patient Acute kidney injury on Chronic kidney disease stage IV, resolved Serum Cr back to baseline Chronic Osteoarthritis F/U as outpatient RUE Superficial Vein Partial Thrombosis IV Site removed, supportive treatment ordered Diabetes. Cont on sliding scale, consistent carbohydrate diet, hypoglycemia protocol. Anxiety/Depression Cont Seroquel, Prozac GERD Cont PPI Hypertension Cont current regimen Dyslipidemia Cont Statin Decreased Appetite Cont Megace, Marinol PO intake encouraged Deep vein thrombosis (DVT) prophylaxis SCDs/TEDs VS, I&O, 24H, Fishbone Vital Signs/I&O Vital Signs Date Time Temp Pulse Resp B/P (MAP) Pulse Ox O2 Delivery O2 Flow Rate FiO2 09/16/18 14:13 157/71 09/16/18 09:24 61 09/16/18 06:00 98.4 19 96 I&O- Last 24 Hours up to 6 AM 09/16/18 06:00 Intake Total 1710 ml Balance 1710 ml Laboratory Data 24H LABS Laboratory Tests 2 09/15/18 16:55: Bedside Glucose (Misc Panel) 110 09/15/18 22:19: Bedside Glucose (Misc Panel) 98 09/16/18 06:00: Nucleated Red Blood Cells % (auto) 0.0, Anion Gap 8, Glomerular Filtration Rate 28.4L, Blood Urea Nitrogen 28H, Creatinine 2.35H, Sodium Level 144, Potassium Level 3.6, Chloride Level 115H, Carbon Dioxide Level 21, Calcium Level 9.8, Magnesium Level 2.0 09/16/18 11:55: Bedside Glucose (Misc Panel) 175H CBC/BMP Laboratory Tests 09/16/18 06:00 Red Blood Count 2.92 L, Mean Corpuscular Volume 88.4, Mean Corpuscular Hemoglobin 30.1, Mean Corpuscular Hemoglobin Concent 34.1, Red Cell Distribution Width 13.9, Calcium Level 9.8 Microbiology Microbiology 09/13/18 Stool Occult Blood (DOLORES) - Final, Complete MELODY YOON MD Sep 16, 2018 15:27
[2018-09-16 22:00] VITALS: BP 167/71
[2018-09-17 06:00] VITALS: BP 137/65
[2018-09-17] MEDS: **hydrALAZINE HCL** 25 MG TAB PO SCH (06:04)
[2018-09-17] MEDS: HumaLOG INSULIN (NovoLOG) PER UNIT SC SCH (08:31)
[2018-09-17] MEDS ORDERED: FERR1TAB8 PO (08:55)
[2018-09-17] MEDS ORDERED: AMLO10TA5 PO (08:55)
[2018-09-17] MEDS: CINACALCET 30 MG TAB (SENSIPAR) PO SCH (08:58)
[2018-09-17] MEDS: CALCITRIOL 0.25 MCG CAP (S0169) PO SCH (08:58)
[2018-09-17] MEDS: MINOXIDIL 2.5 MG TAB PO SCH (08:58)
[2018-09-17 08:59] VITALS: BP 135/73
[2018-09-17] MEDS: SENNA 8.6 MG TAB (SENOKOT) PO SCH (08:59)
[2018-09-17] MEDS: CLOPIDOGREL 75 MG TAB PO SCH (08:59)
[2018-09-17] MEDS: OMEPRAZOLE 20 MG CAP PO SCH (08:59)
[2018-09-17] MEDS: MEGESTROL 40 MG TAB PO SCH (08:59)
[2018-09-17] MEDS: GABAPENTIN 300 MG CAP PO SCH (08:59)
[2018-09-17] MEDS: amLODIPine 10 MG TAB PO SCH (08:59)
[2018-09-17] MEDS: FERROUS SULFATE 325MG TAB PO SCH (08:59)
[2018-09-17] MEDS: ATORVASTATIN 20 MG TAB PO SCH (08:59)
[2018-09-17] MEDS: FLUoxetine 20 MG CAP PO SCH (08:59)
[2018-09-17] MEDS: DRONABINOL 2.5 MG CAP (MARINOL) PO SCH (08:59)
--- NOTE | 2018-09-17 17:10 | DS.PDOC ---
Discharge Summary General Date of Admission Aug 22, 2018 at 16:15 Date of Discharge 09/17/18 Discharge Summary PROCEDURES PERFORMED DURING STAY: None. ADMITTING/DISCHARGE DIAGNOSES: Advanced dementia Urinary tract infection Normocytic anemia Acute kidney injury superimposed on chronic kidney disease stage IV Chronic osteoarthritis Right upper extremity superficial vein partial thrombosis Diabetes Anxiety/depression GERD Hypertension Dyslipidemia COMPLICATIONS/CHIEF COMPLAINT: Iam Frequent Falls. HISTORY OF PRESENT ILLNESS: . 83-year-old male with past medical history of hypertension, diabetes, dyslipidemia, CAD, BPH presents to the ER after he was having recurrent falls and weakness at home. The patient's appetite was also noted to be poor according to the patient's family. In the ER, patient was noted to have an acute kidney injury superimposed on chronic kidney disease. He was admitted to the hospitalist service for further evaluation and management. During hospitalization, the patient was noted to have a urinary tract infection with urine culture positive for enterococcus urinary. He was treated treated with a course of antibiotic therapy. The patient's renal function and mentation returned to baseline. However, there was concern with the patient's family about the patient's advanced dementia and the family's inability to take care of him. PFS was consulted and placement was sought. At this time, the patient has received approval for a bed at [facility]. The patient has been medically optimized and we will discharge him there. The patient should be seen by a primary care physician within 7 days. Lastly, the patient should return to the ER for any acute emergencies. DISCHARGE MEDICATIONS: Please see below. ALLERGIES: Please see below. PHYSICAL EXAMINATION ON DISCHARGE: VITAL SIGNS: Please see below. General Exam: Positive: Alert, Cooperative, No Acute Distress ENT Exam: Positive: Atraumatic, Mucous membr. moist/pink Neck Exam: Negative: JVD Chest Exam: Positive: Clear to auscultation, Normal air movement Heart Exam: Positive: Rate Normal, Normal S1, Normal S2 Abdomen Exam: Positive: Soft; Negative: Tenderness Extremity Exam: Negative: Tenderness, Swelling LABORATORY DATA: Please see below. IMAGING: CT Head without contrast HISTORY: Trauma COMPARISON: None Areas of decreased attenuation are present in the periventricular white matter. This represents small-vessel ischemic disease. There is no intraparenchymal hemorrhage, acute infarct, mass or midline shift. The ventricular system and cortical sulci are dilated consistent with mild volume loss. There is no extra cerebral collection. There is no fracture. The visualized sinuses are clear. A metallic density is present overlying the left globe. IMPRESSION: Impression 1. Small vessel ischemic disease. 2. Mild volume loss. Renal ultrasound: Comparison is 02/10/2014. The right kidney measures 10.6 of 5.0-5.3 cm. Left kidney measures 11.5 x 5 point 5.9 cm. The kidneys are normal size. Renal cortical echogenicity is unremarkable. There is no hydronephrosis. There are no renal calculi. There are no solid renal masses. There is a left renal lower pole 3.1 cm simple cyst. This is unchanged. Bladder ultrasound: Limited views of the bladder demonstrate no bladder wall mass or polyp. The prostate is enlarged measuring 6.5 x 5.1 x 5.1 cm. Impression: Left renal lower pole cyst, unchanged. Enlarged prostate. RIGHT UPPER EXTREMITY DUPLEX DOPPLER VENOUS ULTRASOUND: Real-time compression and duplex Doppler interrogation of the right upper extremity deep vein system is performed. No thrombus is seen in the visualized right jugular, subclavian, axillary, or brachial veins, with no evidence of deep vein thrombosis. There is partial thrombosis of the medial cubital vein at its superior aspect, representing a superficial vein partial thrombosis. Incidental note is made of a nodule in the right lobe of the thyroid, which is predominantly cystic containing mild internal solid components and septations. It measures 1.4 x 1.1 x 0.9 cm. PROGNOSIS: Poor long-term prognosis ACTIVITY: As tolerated. DIET: Renal diet DISCHARGE PLAN: DISPOSITION: [facility]. DISCHARGE INSTRUCTIONS: The patient should be seen by a primary care physician within 7 days. Lastly, the patient should return to the ER for any acute emergencies. DISCHARGE CONDITION: Stable. TIME SPENT ON DISCHARGE: Greater than 30 minutes. Vital Signs/I&Os Vital Signs Date Time Temp Pulse Resp B/P (MAP) Pulse Ox O2 Delivery O2 Flow Rate FiO2 09/17/18 08:59 62 135/73 09/17/18 06:00 98.4 18 96 I&O- Last 24 Hours up to 6 AM 09/17/18 06:00 Intake Total 1640 ml Balance 1640 ml Laboratory Data Labs 24H Laboratory Tests 2 09/16/18 20:35: Bedside Glucose (Misc Panel) 170H 09/17/18 06:09: Bedside Glucose (Misc Panel) 99 FSBS Laboratory Tests Test 09/16/18 20:35 09/17/18 06:09 Range/Units Bedside Glucose (Misc Panel) 170 99 83-110 MG/DL Microbiology Microbiology 09/13/18 Stool Occult Blood (DOLORES) - Final, Complete Discharge Medications Scheduled Amlodipine Besylate (Amlodipine Besylate) 10 Mg Tab, 10 MG PO DAILY Atorvastatin Calcium (Atorvastatin Calcium) 40 Mg Tab, 40 MG PO DAILY, (Reported) Calcitriol (Rocaltrol) 0.25 Mcg Cap, 0.5 MCG PO DAILY, (Reported) Cinacalcet Hydrochloride (Sensipar) 60 Mg Tab, 60 MG PO 5XW, (Reported) MON - MON Clopidogrel Bisulfate (Clopidogrel) 75 Mg Tab, 75 MG PO DAILY, (Reported) Donepezil Hcl (Donepezil HCl) 5 Mg Tab, 5 MG PO DAILY, (Reported) Dronabinol (Dronabinol) 2.5 Mg Cap, 2.5 MG PO BID, (Reported) Ferrous Sulfate (Ferrous Sulfate) 325 Mg Tab, 325 MG PO BID Fluoxetine Hcl (Fluoxetine HCl) 40 Mg Cap, 40 MG PO DAILY, (Reported) Gabapentin (Gabapentin) 300 Mg Cap, 300 MG PO DAILY, (Reported) Minoxidil (Minoxidil) 2.5 Mg Tab, 5 MG PO BID, (Reported) Omeprazole (Omeprazole) 40 Mg Cap, 40 MG PO DAILY, (Reported) Scheduled PRN Nitroglycerin (Nitrostat) 0.4 Mg Subl, 0.4 MG SL NITRO PRN for CHEST PAIN, (Reported) Quetiapine Fumerate (Quetiapine Fumarate) 25 Mg Tab, 25 MG PO DAILY PRN for AGITATION, (Reported) Allergies Coded Allergies: No Known Allergies (Verified , 07/16/10) MELODY YOON MD Sep 17, 2018 17:10
== END 2018-09-17 11:00 | DRG 682 ==
LOC: M ED 11:27 → EDBD 11:27 → M ED INP 16:15 → M MS5PR 08-23 13:50
PROVIDERS: ADMIT Internal Medicine; ATTEND Internal Medicine
DX: I12.9 Hypertensive chronic kidney disease with stage 1 through stage 4 chronic kidney disease, or unspecified chronic kidney disease (principal); G93.41 Metabolic encephalopathy; N17.9 Acute kidney failure, unspecified; N18.4 Chronic kidney disease, stage 4 (severe); E46 Unspecified protein-calorie malnutrition; N39.0 Urinary tract infection, site not specified; I82.611 Acute embolism and thrombosis of superficial veins of right upper extremity; R29.6 Repeated falls; F03.90 Unspecified dementia, unspecified severity, without behavioral disturbance, psychotic disturbance, mood disturbance, and anxiety; M19.90 Unspecified osteoarthritis, unspecified site; E11.9 Type 2 diabetes mellitus without complications; F41.9 Anxiety disorder, unspecified; F32.9 Major depressive disorder, single episode, unspecified; K21.9 Gastro-esophageal reflux disease without esophagitis; E78.5 Hyperlipidemia, unspecified; D64.9 Anemia, unspecified; I25.10 Atherosclerotic heart disease of native coronary artery without angina pectoris; N40.0 Benign prostatic hyperplasia without lower urinary tract symptoms; Z79.899 Other long term (current) drug therapy; E83.52 Hypercalcemia; E86.0 Dehydration

== ENCOUNTER → 2018-10-02 | Outpatient (REF) | payer MEDICARE, OTHER ==
[~2018-10-02] MED LIST changes: -/GLYB5TA OR; +AMLO10TA5 PO; +ATOR40TA75 PO; +CLOP75TA2 PO; +DONETAB5 PO; +DRON2.5C11 PO; +FERR1TAB8 PO; +FLUO40CA PO; +FLUO60TA6 PO; +FURO40TA2 PO; +GABA-843 PO; +GABA-845 PO; +GLYB1TAB29 OR; +LISI-672 PO; +MINO2.5T PO; +NITR4TASL SL; +OMEP10CASR PO; +OMEP40CA2 PO; +POTA10808 PO; +QUET1TAB7 PO; +ROCA0.25 PO; +SENS60TA PO; +SPIR-10 PO
[2018-10-02 15:36] LABS: APPEARANCE, URINE CLEAR (CLEAR); BACTERIA, URINE AUTO 1+ (NEGATIVE); BILIRUBIN, URINE AUTO NEGATIVE (NEGATIVE); BLOOD, URINE BLOOD NEGATIVE (NEGATIVE); COLOR, URINE YELLOW (YELLOW); GLUCOSE, URINE (UA) AUTO 3+ mg/dL (NEGATIVE); KETONE, URINE AUTO NEGATIVE (NEGATIVE); LEUKOCYTE ESTERASE, URINE AUTO 2+ (NEGATIVE); NITRITE, URINE AUTO NEGATIVE (NEGATIVE); PROTEIN, URINE AUTO 1+ mg/dL (NEGATIVE); RBC, URINE AUTO 3 /HPF (0-3); SQUAMOUS EPITHELIAL CELL UR AU 0 /HPF (0-6); UROBILINOGEN, URINE AUTO 0.2 mg/dL (0.0-2.0); WBC, URINE AUTO 24 /HPF (0-3)
[2018-10-02 16:10] LABS: CREATININE, URINE 52.7 MG/DL; MAU/CREAT RATIO 542.6 MCG/MG (0.0-30.0)
== END ==
LOC: SKLAB5 15:03
DX: R30.0 Dysuria (principal)

== ENCOUNTER → 2018-10-15 | Outpatient (REF) | payer MEDICARE, OTHER | LOC: SKLAB5 10:14 | DX: N18.9 Chronic kidney disease, unspecified (principal) ==

== ENCOUNTER → 2018-10-17 | Outpatient (REF) | payer MEDICARE, OTHER ==
[2018-10-17 07:30] LABS: HEMATOCRIT 28.2 % (42.0-52.0); HEMOGLOBIN 9.9 g/dl (13.5-17.5); MEAN CORPUSCULAR HEMOGLOBIN 30.7 pg (27.0-33.0); MEAN CORPUSCULAR HGB CONC 35.1 g/dl (32.0-36.5); MEAN CORPUSCULAR VOLUME 87.6 fl (80.0-96.0); PLATELET COUNT, AUTOMATED 222 10^3/uL (150-450); RED BLOOD COUNT 3.22 10^6/uL (4.30-6.10); WHITE BLOOD COUNT 14.6 10^3/uL (4.0-10.0)
[2018-10-17 07:51] LABS: ALBUMIN 2.8 GM/DL (3.2-5.2); CREATININE FOR GFR 2.15 MG/DL (0.70-1.30); GLOMERULAR FILTRATION RATE 31.5 (>35); PHOSPHORUS LEVEL 2.5 MG/DL (2.5-4.9); POTASSIUM SERUM 3.5 MEQ/L (3.5-5.1)
[2018-10-17 09:20] LABS: PTH INTACT 31.2 PG/ML (18.5-88.0)
== END ==
LOC: SKLAB5 14:34
DX: N19 Unspecified kidney failure (principal)

== ENCOUNTER → 2018-10-18 | Outpatient (REF) | payer MEDICARE, OTHER ==
[2018-10-18 08:18] LABS: BASO % 0.4 % (0.0-1.0); EOS # 0.3 10^3/uL (0.0-0.50); HEMOGLOBIN 9.6 g/dl (13.5-17.5); LYMPH # 1.3 10^3/uL (1.5-4.5); LYMPH % 12.5 % (24.0-44.0); MEAN CORPUSCULAR HEMOGLOBIN 30.3 pg (27.0-33.0); MEAN CORPUSCULAR HGB CONC 34.3 g/dl (32.0-36.5); MEAN CORPUSCULAR VOLUME 88.3 fl (80.0-96.0); MONO % 9.8 % (0.0-5.0); NEUTROPHILS # 7.8 10^3/uL (1.8-7.7); NEUTROPHILS % 73.9 % (36.0-66.0); PLATELET COUNT, AUTOMATED 219 10^3/uL (150-450); RED BLOOD COUNT 3.17 10^6/uL (4.30-6.10); WHITE BLOOD COUNT 10.6 10^3/uL (4.0-10.0)
== END ==
LOC: SKLAB5 08:12
DX: D72.829 Elevated white blood cell count, unspecified (principal)

== ENCOUNTER → 2018-12-10 | Outpatient (REF) | payer MEDICARE, OTHER ==
[2018-12-10 08:13] LABS: BASO % 0.6 % (0.0-1.0); EOS # 0.2 10^3/uL (0.0-0.50); EOS % 2.7 % (0.0-3.0); HEMATOCRIT 26.5 % (42.0-52.0); HEMOGLOBIN 8.8 g/dl (13.5-17.5); LYMPH # 1.1 10^3/uL (1.5-4.5); LYMPH % 17.1 % (24.0-44.0); MEAN CORPUSCULAR HEMOGLOBIN 29.2 pg (27.0-33.0); MEAN CORPUSCULAR HGB CONC 33.2 g/dl (32.0-36.5); MONO # 0.7 10^3/uL (0.0-0.8); MONO % 11.2 % (0.0-5.0); NEUTROPHILS # 4.5 10^3/uL (1.8-7.7); NEUTROPHILS % 68.1 % (36.0-66.0); PLATELET COUNT, AUTOMATED 220 10^3/uL (150-450); RED BLOOD COUNT 3.01 10^6/uL (4.30-6.10); WHITE BLOOD COUNT 6.6 10^3/uL (4.0-10.0)
[2018-12-10 08:40] LABS: ALBUMIN 2.4 GM/DL (3.2-5.2); CALCIUM LEVEL 8.8 MG/DL (8.8-10.2); CREATININE FOR GFR 1.77 MG/DL (0.70-1.30); GLOMERULAR FILTRATION RATE 39.4 (>35); PHOSPHORUS LEVEL 1.9 MG/DL (2.5-4.9); POTASSIUM SERUM 3.7 MEQ/L (3.5-5.1)
[2018-12-10 09:36] LABS: PTH INTACT 42.3 PG/ML (18.5-88.0)
[2018-12-10 14:43] LABS: APPEARANCE, URINE CLOUDY (CLEAR); BACTERIA, URINE AUTO NEGATIVE (NEGATIVE); BILIRUBIN, URINE AUTO NEGATIVE (NEGATIVE); BLOOD, URINE BLOOD NEGATIVE (NEGATIVE); COLOR, URINE YELLOW (YELLOW); GLUCOSE, URINE (UA) AUTO 3+ mg/dL (NEGATIVE); KETONE, URINE AUTO NEGATIVE (NEGATIVE); LEUKOCYTE ESTERASE, URINE AUTO 2+ (NEGATIVE); MUCUS, URINE SMALL (NEGATIVE); NITRITE, URINE AUTO NEGATIVE (NEGATIVE); PROTEIN, URINE AUTO 1+ mg/dL (NEGATIVE); RBC, URINE AUTO 5 /HPF (0-3); SPECIFIC GRAVITY URINE AUTO 1.012 (1.002-1.035); SQUAMOUS EPITHELIAL CELL UR AU 0 /HPF (0-6); UROBILINOGEN, URINE AUTO 0.2 mg/dL (0.0-2.0); WBC, URINE AUTO 100 /HPF (0-3)
== END ==
LOC: SKLAB5 08:34
DX: N19 Unspecified kidney failure (principal)

== ENCOUNTER → 2018-12-24 | Outpatient (REF) | payer MEDICARE, OTHER ==
[2018-12-24 08:18] LABS: BASO # 0.1 10^3/uL (0.0-0.2); BASO % 0.7 % (0.0-1.0); EOS # 0.3 10^3/uL (0.0-0.50); EOS % 3.7 % (0.0-3.0); HEMATOCRIT 27.6 % (42.0-52.0); HEMOGLOBIN 9.1 g/dl (13.5-17.5); LYMPH # 1.3 10^3/uL (1.5-4.5); LYMPH % 18.3 % (24.0-44.0); MEAN CORPUSCULAR HEMOGLOBIN 29.5 pg (27.0-33.0); MEAN CORPUSCULAR VOLUME 89.6 fl (80.0-96.0); MONO # 0.7 10^3/uL (0.0-0.8); MONO % 9.4 % (0.0-5.0); NEUTROPHILS # 4.7 10^3/uL (1.8-7.7); NEUTROPHILS % 67.5 % (36.0-66.0); PLATELET COUNT, AUTOMATED 211 10^3/uL (150-450); RED BLOOD COUNT 3.08 10^6/uL (4.30-6.10)
== END ==
LOC: SKLAB5 07:52
DX: D64.9 Anemia, unspecified (principal)

== ENCOUNTER → 2019-01-03 | Outpatient (REF) | payer MEDICARE, OTHER ==
[2019-01-03 08:51] LABS: CALCIUM LEVEL 8.8 MG/DL (8.8-10.2); CREATININE FOR GFR 1.77 MG/DL (0.70-1.30); GLOMERULAR FILTRATION RATE 39.4 (>35); POTASSIUM SERUM 3.5 MEQ/L (3.5-5.1)
== END ==
LOC: SKLAB5 08:22
DX: I10 Essential (primary) hypertension (principal)

== ENCOUNTER → 2019-01-21 | Outpatient (REF) | payer MEDICARE, OTHER ==
[2019-01-21 09:13] LABS: HEMATOCRIT 30.6 % (42.0-52.0); HEMOGLOBIN 9.8 g/dl (13.5-17.5); MEAN CORPUSCULAR VOLUME 90.5 fl (80.0-96.0); PLATELET COUNT, AUTOMATED 227 10^3/uL (150-450); RED BLOOD COUNT 3.38 10^6/uL (4.30-6.10); WHITE BLOOD COUNT 7.4 10^3/uL (4.0-10.0)
[2019-01-21 09:36] LABS: ALBUMIN 2.9 GM/DL (3.2-5.2); CREATININE FOR GFR 1.78 MG/DL (0.70-1.30); GLOMERULAR FILTRATION RATE 39.1 (>35); PERCENT SATURATION 11.1 % (19.7-50.0); PHOSPHORUS LEVEL 2.8 MG/DL (2.5-4.9); POTASSIUM SERUM 3.6 MEQ/L (3.5-5.1)
[2019-01-21 11:06] LABS: PTH INTACT 34.3 PG/ML (18.5-88.0)
== END ==
LOC: SKLAB5 08:04
DX: N18.9 Chronic kidney disease, unspecified (principal)

== ENCOUNTER → 2019-02-25 | Outpatient (REF) | payer MEDICARE, OTHER ==
[2019-02-25 09:41] LABS: HEMATOCRIT 32.8 % (42.0-52.0); HEMOGLOBIN 10.6 g/dl (13.5-17.5); MEAN CORPUSCULAR HEMOGLOBIN 27.8 pg (27.0-33.0); MEAN CORPUSCULAR HGB CONC 32.3 g/dl (32.0-36.5); MEAN CORPUSCULAR VOLUME 86.1 fl (80.0-96.0); PLATELET COUNT, AUTOMATED 241 10^3/uL (150-450); RED BLOOD COUNT 3.81 10^6/uL (4.30-6.10); WHITE BLOOD COUNT 6.6 10^3/uL (4.0-10.0)
[2019-02-25 09:57] LABS: ALBUMIN 3.1 GM/DL (3.2-5.2); CALCIUM LEVEL 9.1 MG/DL (8.8-10.2); CREATININE FOR GFR 1.83 MG/DL (0.70-1.30); GLOMERULAR FILTRATION RATE 37.8 (>35); PERCENT SATURATION 12.6 % (19.7-50.0); PHOSPHORUS LEVEL 2.4 MG/DL (2.5-4.9)
[2019-02-25 11:05] LABS: PTH INTACT 49.3 PG/ML (18.5-88.0)
== END ==
LOC: SKLAB5 07:50
DX: N19 Unspecified kidney failure (principal)

== ENCOUNTER → 2019-04-01 | Outpatient (CLI) | payer MEDICARE, OTHER ==
--- NOTE | 2019-04-01 14:32 | REP ---
Right upper extremity deep vein duplex ultrasound: The deep veins demonstrate normal compression, normal Doppler color flow and normal Doppler waveforms with respiration augmentation at multiple levels from the brachial veins to the jugular vein. Impression: There is no upper extremity deep vein thrombus. Additionally, during the examination, no thrombus is identified within the superficial veins. Electronically Signed by Vidal Gu MD 04/01/2019 02:24 P
== END ==
LOC: M RAD 13:32
PROVIDERS: ATTEND Nurse Practitioner Family
DX: R22.31 Localized swelling, mass and lump, right upper limb (principal)

== ENCOUNTER → 2019-04-04 | Outpatient (REF) | payer MEDICARE, OTHER ==
[2019-04-04 08:37] LABS: BASO % 0.6 % (0.0-1.0); EOS # 0.2 10^3/uL (0.0-0.5); EOS % 3.8 % (0.0-3.0); HEMATOCRIT 29.2 % (42.0-52.0); HEMOGLOBIN 9.6 g/dl (13.5-17.5); LYMPH % 15.3 % (24.0-44.0); MEAN CORPUSCULAR HEMOGLOBIN 28.9 pg (27.0-33.0); MEAN CORPUSCULAR HGB CONC 32.9 g/dl (32.0-36.5); MONO # 0.7 10^3/uL (0.0-0.8); MONO % 10.9 % (0.0-5.0); NEUTROPHILS # 4.4 10^3/uL (1.5-8.5); NEUTROPHILS % 69.2 % (36.0-66.0); PLATELET COUNT, AUTOMATED 206 10^3/uL (150-450); RED BLOOD COUNT 3.32 10^6/uL (4.30-6.10); WHITE BLOOD COUNT 6.3 10^3/uL (4.0-10.0)
[2019-04-04 09:02] LABS: AMORPHOUS SEDIMENT SMALL (NEGATIVE); APPEARANCE, URINE CLOUDY (CLEAR); BACTERIA, URINE AUTO 2+ (NEGATIVE); BILIRUBIN, URINE AUTO NEGATIVE (NEGATIVE); BLOOD, URINE BLOOD NEGATIVE (NEGATIVE); COLOR, URINE YELLOW (YELLOW); GLUCOSE, URINE (UA) AUTO NEGATIVE (NEGATIVE); KETONE, URINE AUTO NEGATIVE (NEGATIVE); LEUKOCYTE ESTERASE, URINE AUTO 3+ (NEGATIVE); MUCUS, URINE SMALL (NEGATIVE); NITRITE, URINE AUTO NEGATIVE (NEGATIVE); PROTEIN, URINE AUTO 1+ mg/dL (NEGATIVE); RBC, URINE AUTO 4 /HPF (0-3); SQUAMOUS EPITHELIAL CELL UR AU 0 /HPF (0-6); UROBILINOGEN, URINE AUTO 0.2 mg/dL (0.0-2.0); WBC, URINE AUTO 50 /HPF (0-3)
[2019-04-04 09:09] LABS: CALCIUM LEVEL 9.4 MG/DL (8.8-10.2); CHOLESTEROL RISK RATIO 1.822 (<5); CREATININE FOR GFR 1.88 MG/DL (0.70-1.30); GLOMERULAR FILTRATION RATE 36.7 (>35); PHOSPHORUS LEVEL 2.9 MG/DL (2.5-4.9); POTASSIUM SERUM 3.8 MEQ/L (3.5-5.1); TOTAL PROTEIN 5.5 GM/DL (6.4-8.2)
[2019-04-04 09:21] LABS: CREATININE, URINE 74.5 MG/DL; MAU/CREAT RATIO 264.4 MCG/MG (0.0-30.0)
[2019-04-04 10:16] LABS: PTH INTACT 50.3 PG/ML (18.5-88.0)
== END ==
LOC: SKLAB5 08:15
DX: N18.9 Chronic kidney disease, unspecified (principal)

== ENCOUNTER → 2019-04-08 | Outpatient (REF) | payer MEDICARE, OTHER ==
[2019-04-08 14:59] LABS: ALBUMIN 2.5 GM/DL (3.2-5.2); CALCIUM LEVEL 9.1 MG/DL (8.8-10.2); CREATININE FOR GFR 1.83 MG/DL (0.70-1.30); GLOMERULAR FILTRATION RATE 37.8 (>35); PHOSPHORUS LEVEL 2.8 MG/DL (2.5-4.9); THYROID STIMULATING HORMONE 1.67 uIU/ML (0.358-3.740)
== END ==
LOC: SKLAB5 12:06
DX: R63.4 Abnormal weight loss (principal); R60.1 Generalized edema; E87.5 Hyperkalemia; I10 Essential (primary) hypertension; D64.9 Anemia, unspecified

== ENCOUNTER → 2019-04-09 | Outpatient (REF) | payer MEDICARE, OTHER ==
[2019-04-09 13:58] LABS: AMORPHOUS SEDIMENT MODERATE (NEGATIVE); APPEARANCE, URINE CLOUDY (CLEAR); BACTERIA, URINE AUTO 1+ (NEGATIVE); BILIRUBIN, URINE AUTO NEGATIVE (NEGATIVE); BLOOD, URINE BLOOD 1+ (NEGATIVE); COLOR, URINE YELLOW (YELLOW); GLUCOSE, URINE (UA) AUTO 1+ mg/dL (NEGATIVE); KETONE, URINE AUTO NEGATIVE (NEGATIVE); LEUKOCYTE ESTERASE, URINE AUTO 3+ (NEGATIVE); MUCUS, URINE SMALL (NEGATIVE); NITRITE, URINE AUTO NEGATIVE (NEGATIVE); PROTEIN, URINE AUTO 1+ mg/dL (NEGATIVE); RBC, URINE AUTO 18 /HPF (0-3); SPECIFIC GRAVITY URINE AUTO 1.011 (1.002-1.035); SQUAMOUS EPITHELIAL CELL UR AU 0 /HPF (0-6); UROBILINOGEN, URINE AUTO 0.2 mg/dL (0.0-2.0); WBC, URINE AUTO 147 /HPF (0-3)
== END ==
LOC: SKLAB5 13:34
PROVIDERS: ATTEND Internal Medicine
DX: N19 Unspecified kidney failure (principal); E78.5 Hyperlipidemia, unspecified; D64.9 Anemia, unspecified; E21.0 Primary hyperparathyroidism; Z79.899 Other long term (current) drug therapy

== ENCOUNTER → 2019-04-15 | Outpatient (CLI) | payer MEDICARE, OTHER ==
--- NOTE | 2019-04-15 12:32 | REP ---
BILATERAL MAMMOGRAM: Bilateral mammography performed in the MLO and CC projections. Reportedly, there is a history of swelling above the left breast, which now has subsided. There is currently no evidence of pain or palpable lump in either breast. Mild bilateral fibroglandular tissue is seen. No discrete mass or architectural distortion is see. No clustered microcalcifications are seen. IMPRESSION: BIRADS 2: BI-RADS/ACR category 2 mammogram. Benign Findings. ACR 2 benign. There is mild bilateral gynecomastia. No suspicious mass, architectural distortion or clustered microcalcifications. Clinical correlation and followup recommended. Patient letter being requested is M2. Electronically Signed by Vidal Pina MD 04/15/2019 11:32 P
== END ==
LOC: M RAD 11:18
PROVIDERS: ATTEND Nurse Practitioner Family
DX: N62 Hypertrophy of breast (principal)

== ENCOUNTER → 2019-04-18 | Outpatient (REF) | payer MEDICARE, OTHER ==
[~2019-04-18] MED LIST changes: -OMEP40CA2 PO; +OMEP40CA97 PO
[2019-04-18 08:59] LABS: CALCIUM LEVEL 9.2 MG/DL (8.8-10.2); CREATININE FOR GFR 1.71 MG/DL (0.70-1.30); GLOMERULAR FILTRATION RATE 40.9 (>35); POTASSIUM SERUM 3.8 MEQ/L (3.5-5.1)
== END ==
LOC: SKLAB5 08:19
PROVIDERS: ATTEND Internal Medicine
DX: I12.9 Hypertensive chronic kidney disease with stage 1 through stage 4 chronic kidney disease, or unspecified chronic kidney disease (principal); N18.9 Chronic kidney disease, unspecified

== ENCOUNTER → 2019-05-09 | Outpatient (REF) | payer MEDICARE, OTHER ==
[2019-05-09 09:20] LABS: HEMATOCRIT 29.7 % (42.0-52.0); HEMOGLOBIN 9.5 g/dl (13.5-17.5); MEAN CORPUSCULAR HEMOGLOBIN 28.6 pg (27.0-33.0); MEAN CORPUSCULAR VOLUME 89.5 fl (80.0-96.0); PLATELET COUNT, AUTOMATED 245 10^3/uL (150-450); RED BLOOD COUNT 3.32 10^6/uL (4.30-6.10); WHITE BLOOD COUNT 6.9 10^3/uL (4.0-10.0)
[2019-05-09 09:46] LABS: CALCIUM LEVEL 9.6 MG/DL (8.8-10.2); CREATININE FOR GFR 1.84 MG/DL (0.70-1.30); GLOMERULAR FILTRATION RATE 37.6 (>35); PHOSPHORUS LEVEL 3.2 MG/DL (2.5-4.9); POTASSIUM SERUM 3.8 MEQ/L (3.5-5.1)
== END ==
LOC: SKLAB5 08:02
PROVIDERS: ATTEND Internal Medicine
DX: D64.9 Anemia, unspecified (principal); N18.9 Chronic kidney disease, unspecified

== ENCOUNTER → 2019-06-13 | Outpatient (REF) | payer MEDICARE, OTHER ==
[2019-06-13 08:31] LABS: HEMATOCRIT 32.2 % (42.0-52.0); HEMOGLOBIN 10.4 g/dl (13.5-17.5); MEAN CORPUSCULAR HEMOGLOBIN 28.8 pg (27.0-33.0); MEAN CORPUSCULAR HGB CONC 32.3 g/dl (32.0-36.5); MEAN CORPUSCULAR VOLUME 89.2 fl (80.0-96.0); PLATELET COUNT, AUTOMATED 197 10^3/uL (150-450); RED BLOOD COUNT 3.61 10^6/uL (4.30-6.10); WHITE BLOOD COUNT 5.3 10^3/uL (4.0-10.0)
== END ==
LOC: SKLAB5 10:10
PROVIDERS: ATTEND Internal Medicine
DX: D64.9 Anemia, unspecified (principal)

== ENCOUNTER → 2019-07-11 | Outpatient (REF) | payer MEDICARE, OTHER ==
[2019-07-11 09:31] LABS: BASO % 0.5 % (0.0-1.0); EOS # 0.4 10^3/uL (0.0-0.5); EOS % 6.1 % (0.0-3.0); HEMATOCRIT 29.9 % (42.0-52.0); HEMOGLOBIN 9.7 g/dl (13.5-17.5); LYMPH % 17.3 % (24.0-44.0); MEAN CORPUSCULAR HEMOGLOBIN 28.8 pg (27.0-33.0); MEAN CORPUSCULAR HGB CONC 32.4 g/dl (32.0-36.5); MEAN CORPUSCULAR VOLUME 88.7 fl (80.0-96.0); MONO # 0.6 10^3/uL (0.0-0.8); MONO % 9.6 % (0.0-5.0); NEUTROPHILS # 3.8 10^3/uL (1.5-8.5); NEUTROPHILS % 66.1 % (36.0-66.0); PLATELET COUNT, AUTOMATED 168 10^3/uL (150-450); RED BLOOD COUNT 3.37 10^6/uL (4.30-6.10); WHITE BLOOD COUNT 5.7 10^3/uL (4.0-10.0)
[2019-07-11 10:08] LABS: ALBUMIN 2.8 GM/DL (3.2-5.2); CALCIUM LEVEL 9.8 MG/DL (8.8-10.2); CREATININE FOR GFR 1.84 MG/DL (0.70-1.30); GLOMERULAR FILTRATION RATE 37.6 (>35); PERCENT SATURATION 13.4 % (19.7-50.0); PHOSPHORUS LEVEL 2.9 MG/DL (2.5-4.9); POTASSIUM SERUM 3.9 MEQ/L (3.5-5.1)
[2019-07-11 20:02] LABS: BILIRUBIN,TOTAL 0.4 MG/DL (0.2-1.0); TOTAL PROTEIN 5.2 GM/DL (6.4-8.2)
== END ==
LOC: SKLAB5 07:34
PROVIDERS: ATTEND Internal Medicine
DX: N18.9 Chronic kidney disease, unspecified (principal); F03.90 Unspecified dementia, unspecified severity, without behavioral disturbance, psychotic disturbance, mood disturbance, and anxiety; I12.9 Hypertensive chronic kidney disease with stage 1 through stage 4 chronic kidney disease, or unspecified chronic kidney disease

== ENCOUNTER → 2019-09-09 | Outpatient (REF) | payer MEDICARE, OTHER ==
[2019-09-09 07:56] LABS: BASO % 0.7 % (0.0-1.0); EOS # 0.4 10^3/uL (0.0-0.5); EOS % 6.7 % (0.0-3.0); HEMATOCRIT 27.7 % (42.0-52.0); HEMOGLOBIN 9.6 g/dl (13.5-17.5); LYMPH # 1.3 10^3/uL (1.5-5.0); LYMPH % 22.1 % (24.0-44.0); MEAN CORPUSCULAR HEMOGLOBIN 30.1 pg (27.0-33.0); MEAN CORPUSCULAR HGB CONC 34.7 g/dl (32.0-36.5); MEAN CORPUSCULAR VOLUME 86.8 fl (80.0-96.0); MONO # 0.6 10^3/uL (0.0-0.8); MONO % 9.7 % (0.0-5.0); NEUTROPHILS # 3.4 10^3/uL (1.5-8.5); NEUTROPHILS % 60.6 % (36.0-66.0); PLATELET COUNT, AUTOMATED 169 10^3/uL (150-450); RED BLOOD COUNT 3.19 10^6/uL (4.30-6.10); WHITE BLOOD COUNT 5.7 10^3/uL (4.0-10.0)
[2019-09-09 08:22] LABS: ALBUMIN 2.7 GM/DL (3.2-5.2); CALCIUM LEVEL 9.9 MG/DL (8.8-10.2); CREATININE FOR GFR 2.14 MG/DL (0.70-1.30); GLOMERULAR FILTRATION RATE 31.6 (>35); PERCENT SATURATION 26.2 % (19.7-50.0); PHOSPHORUS LEVEL 3.4 MG/DL (2.5-4.9); POTASSIUM SERUM 4.2 MEQ/L (3.5-5.1)
[2019-09-09 09:33] LABS: PTH INTACT 38.3 PG/ML (18.5-88.0)
== END ==
LOC: SKLAB5 08:17
PROVIDERS: ATTEND Internal Medicine
DX: N18.9 Chronic kidney disease, unspecified (principal)

== ENCOUNTER → 2019-09-23 | Outpatient (REF) | payer MEDICARE, OTHER ==
[2019-09-23 13:30] LABS: CALCIUM LEVEL 9.9 MG/DL (8.8-10.2); CREATININE FOR GFR 2.12 MG/DL (0.70-1.30); GLOMERULAR FILTRATION RATE 31.9 (>35); POTASSIUM SERUM 4.2 MEQ/L (3.5-5.1)
== END ==
LOC: SKLAB5 08:08
PROVIDERS: ATTEND Internal Medicine
DX: N18.9 Chronic kidney disease, unspecified (principal)

== ENCOUNTER → 2019-11-20 | Outpatient (REF) ==
[~2019-11-20] MED LIST changes: -LISI-672 PO; +LISI30TA4 PO
== END ==
LOC: SKLAB5 14:46
PROVIDERS: ATTEND Internal Medicine
DX: Z11.59 Encounter for screening for other viral diseases (principal); Z53.9 Procedure and treatment not carried out, unspecified reason

== ENCOUNTER → 2019-11-26 | Outpatient (REF) | payer MEDICARE, OTHER ==
[2019-11-26 13:32] LABS: HEMOGLOBIN 9.8 g/dl (13.5-17.5); MEAN CORPUSCULAR HEMOGLOBIN 31.5 pg (27.0-33.0); PLATELET COUNT, AUTOMATED 176 10^3/uL (150-450); RED BLOOD COUNT 3.11 10^6/uL (4.30-6.10); WHITE BLOOD COUNT 5.6 10^3/uL (4.0-10.0)
[2019-11-26 14:59] LABS: ALBUMIN 2.6 GM/DL (3.2-5.2); BILIRUBIN,TOTAL 0.4 MG/DL (0.2-1.0); CALCIUM LEVEL 10.5 MG/DL (8.8-10.2); CREATININE FOR GFR 2.24 MG/DL (0.70-1.30); POTASSIUM SERUM 4.2 MEQ/L (3.5-5.1); THYROID STIMULATING HORMONE 1.84 uIU/ML (0.358-3.740); TOTAL PROTEIN 4.8 GM/DL (6.4-8.2)
== END ==
LOC: SKLAB5 13:04
PROVIDERS: ATTEND Internal Medicine
DX: R53.83 Other fatigue (principal)

== ENCOUNTER → 2019-12-19 | Outpatient (REF) | payer MEDICARE, OTHER ==
[2019-12-19 08:05] LABS: BASO % 0.6 % (0.0-1.0); EOS # 0.4 10^3/uL (0.0-0.5); EOS % 8.6 % (0.0-3.0); HEMATOCRIT 26.3 % (42.0-52.0); HEMOGLOBIN 9.3 g/dl (13.5-17.5); LYMPH % 20.3 % (24.0-44.0); MEAN CORPUSCULAR HEMOGLOBIN 31.8 pg (27.0-33.0); MEAN CORPUSCULAR HGB CONC 35.4 g/dl (32.0-36.5); MEAN CORPUSCULAR VOLUME 90.1 fl (80.0-96.0); MONO # 0.5 10^3/uL (0.0-0.8); MONO % 10.2 % (0.0-5.0); NEUTROPHILS % 60.1 % (36.0-66.0); PLATELET COUNT, AUTOMATED 160 10^3/uL (150-450); RED BLOOD COUNT 2.92 10^6/uL (4.30-6.10)
[2019-12-19 08:52] LABS: ALBUMIN 2.7 GM/DL (3.2-5.2); CALCIUM LEVEL 10.1 MG/DL (8.8-10.2); CREATININE FOR GFR 2.33 MG/DL (0.70-1.30); GLOMERULAR FILTRATION RATE 28.6 (>35); POTASSIUM SERUM 4.1 MEQ/L (3.5-5.1)
== END ==
LOC: SKLAB5 07:37
PROVIDERS: ATTEND Internal Medicine
DX: D64.9 Anemia, unspecified (principal); N18.9 Chronic kidney disease, unspecified

== ENCOUNTER → 2020-01-09 | Outpatient (REF) | payer MEDICARE, OTHER ==
[2020-01-09 08:40] LABS: ALBUMIN 2.6 GM/DL (3.2-5.2); BILIRUBIN,TOTAL 0.4 MG/DL (0.2-1.0); CALCIUM LEVEL 9.8 MG/DL (8.8-10.2); CREATININE FOR GFR 2.4 MG/DL (0.70-1.30); GLOMERULAR FILTRATION RATE 27.7 (>35); POTASSIUM SERUM 4.2 MEQ/L (3.5-5.1); TOTAL PROTEIN 5.2 GM/DL (6.4-8.2)
== END ==
LOC: SKLAB5 08:13
PROVIDERS: ATTEND Internal Medicine
DX: N18.9 Chronic kidney disease, unspecified (principal)

== ENCOUNTER → 2020-03-12 | Outpatient (REF) | payer MEDICARE, OTHER ==
[~2020-03-12] MED LIST changes: -AMLO10TA5 PO; +AMLO1TAB25 PO
[2020-03-12 10:22] LABS: BASO % 0.9 % (0.0-1.0); EOS # 0.3 10^3/uL (0.0-0.5); EOS % 7.8 % (0.0-3.0); HEMATOCRIT 25.3 % (42.0-52.0); HEMOGLOBIN 8.9 g/dl (13.5-17.5); LYMPH # 1.1 10^3/uL (1.5-5.0); MEAN CORPUSCULAR HEMOGLOBIN 31.4 pg (27.0-33.0); MEAN CORPUSCULAR HGB CONC 35.2 g/dl (32.0-36.5); MEAN CORPUSCULAR VOLUME 89.4 fl (80.0-96.0); MONO # 0.5 10^3/uL (0.0-0.8); MONO % 11.2 % (0.0-5.0); NEUTROPHILS # 2.4 10^3/uL (1.5-8.5); NEUTROPHILS % 55.9 % (36.0-66.0); PLATELET COUNT, AUTOMATED 150 10^3/uL (150-450); RED BLOOD COUNT 2.83 10^6/uL (4.30-6.10); WHITE BLOOD COUNT 4.4 10^3/uL (4.0-10.0)
[2020-03-12 11:23] LABS: ALBUMIN 2.7 GM/DL (3.2-5.2); CALCIUM LEVEL 9.9 MG/DL (8.8-10.2); CHOLESTEROL RISK RATIO 3.151 (<5); CREATININE FOR GFR 2.23 MG/DL (0.70-1.30); PERCENT SATURATION 30.6 % (19.7-50.0); PHOSPHORUS LEVEL 2.6 MG/DL (2.5-4.9); POTASSIUM SERUM 4.1 MEQ/L (3.5-5.1)
== END ==
LOC: SKLAB5 06:43
PROVIDERS: ATTEND Internal Medicine
DX: D64.9 Anemia, unspecified (principal); E78.5 Hyperlipidemia, unspecified

== ENCOUNTER → 2020-04-09 | Outpatient (REF) | payer MEDICARE, OTHER | LOC: SKLAB5 07:22 | PROVIDERS: ATTEND Internal Medicine | DX: Z53.9 Procedure and treatment not carried out, unspecified reason (principal); N18.9 Chronic kidney disease, unspecified ==

== ENCOUNTER → 2020-05-05 | Outpatient (REF) | payer MEDICARE, OTHER ==
[2020-05-05 08:20] LABS: HEMATOCRIT 24.8 % (42.0-52.0); MEAN CORPUSCULAR HEMOGLOBIN 30.2 pg (27.0-33.0); MEAN CORPUSCULAR HGB CONC 32.3 g/dl (32.0-36.5); MEAN CORPUSCULAR VOLUME 93.6 fl (80.0-96.0); PLATELET COUNT, AUTOMATED 247 10^3/uL (150-450); RED BLOOD COUNT 2.65 10^6/uL (4.30-6.10); WHITE BLOOD COUNT 6.4 10^3/uL (4.0-10.0)
== END ==
LOC: SKLAB5 07:03
PROVIDERS: ATTEND Internal Medicine
DX: D64.9 Anemia, unspecified (principal)

== ENCOUNTER → 2020-05-19 | Outpatient (REF) | payer MEDICARE, OTHER | LOC: SKLAB5 07:24 | PROVIDERS: ATTEND Internal Medicine | DX: D64.9 Anemia, unspecified (principal) ==

== ENCOUNTER → 2020-05-22 | Outpatient (REF) | payer MEDICARE, OTHER ==
[2020-05-22 12:43] LABS: BASO % 0.5 % (0.0-1.0); EOS # 0.5 10^3/uL (0.0-0.5); HEMATOCRIT 24.3 % (42.0-52.0); HEMOGLOBIN 7.9 g/dl (13.5-17.5); LYMPH % 16.6 % (24.0-44.0); MEAN CORPUSCULAR HEMOGLOBIN 30.3 pg (27.0-33.0); MEAN CORPUSCULAR HGB CONC 32.5 g/dl (32.0-36.5); MEAN CORPUSCULAR VOLUME 93.1 fl (80.0-96.0); MONO # 0.6 10^3/uL (0.0-0.8); MONO % 9.3 % (0.0-5.0); NEUTROPHILS # 4.1 10^3/uL (1.5-8.5); NEUTROPHILS % 65.3 % (36.0-66.0); PLATELET COUNT, AUTOMATED 172 10^3/uL (150-450); RED BLOOD COUNT 2.61 10^6/uL (4.30-6.10); WHITE BLOOD COUNT 6.3 10^3/uL (4.0-10.0)
[2020-05-22 13:09] LABS: ALBUMIN 2.6 GM/DL (3.2-5.2); CREATININE FOR GFR 2.06 MG/DL (0.70-1.30); GLOMERULAR FILTRATION RATE 32.9 (>35); PERCENT SATURATION 8.1 % (19.7-50.0); POTASSIUM SERUM 4.3 MEQ/L (3.5-5.1)
[2020-05-22 13:15] LABS: PTH INTACT 64.1 PG/ML (18.5-88.0)
== END ==
LOC: SKLAB5 10:48
PROVIDERS: ATTEND Internal Medicine
DX: N18.9 Chronic kidney disease, unspecified (principal)

== ENCOUNTER 2020-05-27 12:23 | Outpatient (CLI) | payer MEDICARE, OTHER ==
[~2020-05-27] VITALS: Ht 185.4 cm; Wt 68.0 kg
[~2020-05-27 12:23] MED LIST changes: -GABA-282 PO; +GABA-843 PO; +QUET1TAB7 PO; -QUET25TA3 PO
[2020-05-27 12:45] VITALS: BP 145/72
[2020-05-27] MEDS ORDERED: FERRIC CARBOXYMALTOSE INJ 750 MG in NS 250 ML IV ONE (13:00)
[2020-05-27] MEDS ORDERED: EPINEPHrine INJ 1 MG/ML 1ML AMP IM PRN (13:00)
[2020-05-27] MEDS ORDERED: ALBUTEROL SULFATE 2.5 MG/0.5 ML INH NEB SOLN INH PRN (13:00)
[2020-05-27] MEDS ORDERED: diphenhydrAMINE 50MG/ML VIAL (J1200) IV PRN (13:00)
[2020-05-27] MEDS ORDERED: NS 1,000 ML IV SCH (13:00)
[2020-05-27] MEDS ORDERED: methylPREDNISolone 125MG 2ML VIAL IV PRN (13:00)
[2020-05-27 14:30] VITALS: BP 115/58
== END 2020-05-27 14:45 | disposition home or self-care (01) ==
LOC: M INFU 12:23
PROVIDERS: ATTEND Internal Medicine Nephrology
DX: D50.9 Iron deficiency anemia, unspecified (principal)
CPT/HCPCS: 96365; J1439

== ENCOUNTER → 2020-05-27 | Outpatient (REF) | payer MEDICARE, OTHER ==
[~2020-05-27] MED LIST changes: +GABA-282 PO; -GABA-843 PO; -QUET1TAB7 PO; +QUET25TA3 PO
== END ==
LOC: SKLAB5 05-26 15:13 → EDSTATUS 06-30 11:25
PROVIDERS: ATTEND Internal Medicine
DX: Z20.828 Contact with and (suspected) exposure to other viral communicable diseases (principal)

== ENCOUNTER 2020-06-03 12:22 | Outpatient (CLI) | payer MEDICARE, OTHER ==
[~2020-06-03] VITALS: Ht 180.3 cm; Wt 68.0 kg
[~2020-06-03 12:22] MED LIST changes: -GABA-282 PO; +GABA-843 PO; +QUET1TAB7 PO; -QUET25TA3 PO
[2020-06-03 12:25] VITALS: BP 106/53
[2020-06-03] MEDS ORDERED: diphenhydrAMINE 50MG/ML VIAL (J1200) IV PRN (13:00)
[2020-06-03] MEDS ORDERED: NS 1,000 ML IV SCH (13:00)
[2020-06-03] MEDS ORDERED: methylPREDNISolone 125MG 2ML VIAL IV PRN (13:00)
[2020-06-03] MEDS ORDERED: ALBUTEROL SULFATE 2.5 MG/0.5 ML INH NEB SOLN INH PRN (13:00)
[2020-06-03] MEDS ORDERED: EPINEPHrine INJ 1 MG/ML 1ML AMP IM PRN (13:00)
[2020-06-03] MEDS ORDERED: FERRIC CARBOXYMALTOSE INJ 750 MG in NS 250 ML IV ONE (13:00)
[2020-06-03 14:30] VITALS: BP 130/62
[2020-06-03 15:55] VITALS: BP 157/71
== END 2020-06-03 15:55 ==
LOC: M INFU 12:22
PROVIDERS: ATTEND Internal Medicine Nephrology
DX: D50.9 Iron deficiency anemia, unspecified (principal)
CPT/HCPCS: 96365; 96366; J1439

== ENCOUNTER → 2020-06-03 | Outpatient (REF) | payer MEDICARE, OTHER ==
[~2020-06-03] MED LIST changes: +GABA-282 PO; -GABA-843 PO; -QUET1TAB7 PO; +QUET25TA3 PO
== END ==
LOC: SKLAB5 08:00
PROVIDERS: ATTEND Internal Medicine
DX: Z20.828 Contact with and (suspected) exposure to other viral communicable diseases (principal)

== ENCOUNTER → 2020-06-10 | Outpatient (REF) | payer MEDICARE, OTHER ==
[~2020-06-10] MED LIST changes: +GABA-282 PO; -GABA-843 PO; -QUET1TAB7 PO; +QUET25TA3 PO
== END ==
LOC: SKLAB5 08:00
PROVIDERS: ATTEND Internal Medicine
DX: Z20.828 Contact with and (suspected) exposure to other viral communicable diseases (principal)

== ENCOUNTER → 2020-06-17 | Outpatient (REF) | payer MEDICARE, OTHER ==
[~2020-06-17] MED LIST changes: -GABA-282 PO; +GABA-843 PO; +QUET1TAB7 PO; -QUET25TA3 PO
[2020-06-17 08:07] LABS: HEMATOCRIT 25.8 % (42.0-52.0); HEMOGLOBIN 8.5 g/dl (13.5-17.5); MEAN CORPUSCULAR HEMOGLOBIN 30.9 pg (27.0-33.0); MEAN CORPUSCULAR HGB CONC 32.9 g/dl (32.0-36.5); MEAN CORPUSCULAR VOLUME 93.8 fl (80.0-96.0); PLATELET COUNT, AUTOMATED 148 10^3/uL (150-450); RED BLOOD COUNT 2.75 10^6/uL (4.30-6.10); WHITE BLOOD COUNT 17.3 10^3/uL (4.0-10.0)
[2020-06-17 08:44] LABS: CALCIUM LEVEL 9.3 MG/DL (8.8-10.2); CREATININE FOR GFR 2.44 MG/DL (0.70-1.30); GLOMERULAR FILTRATION RATE 27.1 (>35); POTASSIUM SERUM 3.9 MEQ/L (3.5-5.1)
--- NOTE | 2020-06-17 17:07 | REP ---
INDICATION: FEVER/COUGH/LEUCOCYTOSIS. COMPARISON: Comparison chest x-ray August 22, 2018.. TECHNIQUE: Portable upright AP radiograph. FINDINGS: There increased markings in the left base behind the heart consistent with left lower lobe infiltrate. Right lung is clear. Heart is not felt to be enlarged. There are skin folds along or left lateral chest wall. Pulmonary vasculature is not increased. IMPRESSION: Increased density behind the heart in the left lower lobe consistent with infiltrate/pneumonia. <Electronically signed by Leo Perry > 06/17/20 [id number]
[2020-06-17 20:44] LABS: APPEARANCE, URINE CLOUDY (CLEAR); BACTERIA, URINE AUTO 1+ (NEGATIVE); BILIRUBIN, URINE AUTO NEGATIVE (NEGATIVE); BLOOD, URINE BLOOD NEGATIVE (NEGATIVE); COLOR, URINE YELLOW (YELLOW); GLUCOSE, URINE (UA) AUTO NEGATIVE (NEGATIVE); KETONE, URINE AUTO NEGATIVE (NEGATIVE); LEUKOCYTE ESTERASE, URINE AUTO TRACE (NEGATIVE); MUCUS, URINE SMALL (NEGATIVE); NITRITE, URINE AUTO NEGATIVE (NEGATIVE); PROTEIN, URINE AUTO 1+ mg/dL (NEGATIVE); RBC, URINE AUTO 4 /HPF (0-3); SPECIFIC GRAVITY URINE AUTO 1.011 (1.002-1.035); SQUAMOUS EPITHELIAL CELL UR AU 0 /HPF (0-6); UROBILINOGEN, URINE AUTO 0.2 mg/dL (0.0-2.0); WBC, URINE AUTO 2 /HPF (0-3)
== END ==
LOC: SKLAB5 06:44
PROVIDERS: ATTEND Family Medicine
DX: R91.8 Other nonspecific abnormal finding of lung field (principal); D72.829 Elevated white blood cell count, unspecified; R50.9 Fever, unspecified; R05 Cough; Z20.828 Contact with and (suspected) exposure to other viral communicable diseases

== ENCOUNTER → 2020-06-19 | Outpatient (REF) | payer MEDICARE, OTHER ==
[2020-06-19 08:07] LABS: HEMATOCRIT 25.3 % (42.0-52.0); HEMOGLOBIN 8.2 g/dl (13.5-17.5); MEAN CORPUSCULAR HEMOGLOBIN 30.1 pg (27.0-33.0); MEAN CORPUSCULAR HGB CONC 32.4 g/dl (32.0-36.5); PLATELET COUNT, AUTOMATED 165 10^3/uL (150-450); RED BLOOD COUNT 2.72 10^6/uL (4.30-6.10); WHITE BLOOD COUNT 8.7 10^3/uL (4.0-10.0)
[2020-06-19 08:29] LABS: CALCIUM LEVEL 9.8 MG/DL (8.8-10.2); CREATININE FOR GFR 2.94 MG/DL (0.70-1.30); GLOMERULAR FILTRATION RATE 21.8 (>35)
== END ==
LOC: SKLAB5 08:36
PROVIDERS: ATTEND Internal Medicine
DX: J18.9 Pneumonia, unspecified organism (principal); N18.9 Chronic kidney disease, unspecified

== ENCOUNTER → 2020-06-24 | Outpatient (REF) | payer MEDICARE, OTHER | LOC: SKLAB5 09:12 | PROVIDERS: ATTEND Internal Medicine | DX: Z20.828 Contact with and (suspected) exposure to other viral communicable diseases (principal) ==

== ENCOUNTER → 2020-06-25 | Outpatient (REF) | payer MEDICARE, OTHER | LOC: SKLAB5 05:45 | PROVIDERS: ATTEND Internal Medicine | DX: Z53.9 Procedure and treatment not carried out, unspecified reason (principal) ==

== ENCOUNTER → 2020-06-26 | Outpatient (REF) | payer MEDICARE, OTHER ==
[2020-06-26 08:30] LABS: BASO # 0.1 10^3/uL (0.0-0.2); BASO % 0.9 % (0.0-1.0); EOS # 0.6 10^3/uL (0.0-0.5); EOS % 6.6 % (0.0-3.0); HEMATOCRIT 31.6 % (42.0-52.0); HEMOGLOBIN 10.5 g/dl (13.5-17.5); LYMPH # 1.4 10^3/uL (1.5-5.0); MEAN CORPUSCULAR HEMOGLOBIN 30.9 pg (27.0-33.0); MEAN CORPUSCULAR HGB CONC 33.2 g/dl (32.0-36.5); MEAN CORPUSCULAR VOLUME 92.9 fl (80.0-96.0); MONO # 0.8 10^3/uL (0.0-0.8); MONO % 8.4 % (0.0-5.0); NEUTROPHILS # 6.3 10^3/uL (1.5-8.5); NEUTROPHILS % 68.2 % (36.0-66.0); PLATELET COUNT, AUTOMATED 264 10^3/uL (150-450); WHITE BLOOD COUNT 9.3 10^3/uL (4.0-10.0)
[2020-06-26 08:48] LABS: ALBUMIN 3.2 GM/DL (3.2-5.2); CALCIUM LEVEL 10.3 MG/DL (8.8-10.2); CREATININE FOR GFR 2.01 MG/DL (0.70-1.30); GLOMERULAR FILTRATION RATE 33.9 (>35); PERCENT SATURATION 33.2 % (19.7-50.0); PHOSPHORUS LEVEL 2.9 MG/DL (2.5-4.9); POTASSIUM SERUM 4.9 MEQ/L (3.5-5.1)
[2020-06-26 09:08] LABS: PTH INTACT 36.9 PG/ML (18.5-88.0)
== END ==
LOC: SKLAB5 07:19
PROVIDERS: ATTEND Internal Medicine
DX: N18.9 Chronic kidney disease, unspecified (principal)

== ENCOUNTER → 2020-07-01 | Outpatient (REF) | payer MEDICARE, OTHER | LOC: SKLAB5 06:02 | PROVIDERS: ATTEND Internal Medicine | DX: Z20.828 Contact with and (suspected) exposure to other viral communicable diseases (principal) ==

== ENCOUNTER → 2020-07-08 | Outpatient (REF) | payer MEDICARE, OTHER | LOC: SKLAB5 06:33 | PROVIDERS: ATTEND Internal Medicine | DX: Z20.828 Contact with and (suspected) exposure to other viral communicable diseases (principal) ==

== ENCOUNTER → 2020-07-14 | Outpatient (REF) | payer MEDICARE, OTHER ==
[~2020-07-14] MED LIST changes: +GABA-282 PO; -GABA-843 PO; -QUET1TAB7 PO; +QUET25TA3 PO
== END ==
LOC: SKLAB5 06-18 15:33
PROVIDERS: ATTEND Internal Medicine
DX: Z53.9 Procedure and treatment not carried out, unspecified reason (principal)

== ENCOUNTER → 2020-07-15 | Outpatient (REF) | payer MEDICARE, OTHER ==
[~2020-07-15] MED LIST changes: -GABA-282 PO; +GABA-843 PO; +QUET1TAB7 PO; -QUET25TA3 PO
== END ==
LOC: SKLAB5 07:16
PROVIDERS: ATTEND Internal Medicine
DX: Z53.9 Procedure and treatment not carried out, unspecified reason (principal)

== ENCOUNTER → 2020-07-16 | Outpatient (REF) | payer MEDICARE, OTHER ==
[2020-07-16 10:51] LABS: HEMATOCRIT 30.1 % (42.0-52.0); HEMOGLOBIN 9.6 g/dl (13.5-17.5); MEAN CORPUSCULAR HEMOGLOBIN 30.7 pg (27.0-33.0); MEAN CORPUSCULAR HGB CONC 31.9 g/dl (32.0-36.5); MEAN CORPUSCULAR VOLUME 96.2 fl (80.0-96.0); PLATELET COUNT, AUTOMATED 184 10^3/uL (150-450); RED BLOOD COUNT 3.13 10^6/uL (4.30-6.10); WHITE BLOOD COUNT 5.9 10^3/uL (4.0-10.0)
[2020-07-16 11:28] LABS: ALBUMIN 2.8 GM/DL (3.2-5.2); BILIRUBIN,TOTAL 0.3 MG/DL (0.2-1.0); CALCIUM LEVEL 10.2 MG/DL (8.8-10.2); CREATININE FOR GFR 2.28 MG/DL (0.70-1.30); GLOMERULAR FILTRATION RATE 29.3 (>35); POTASSIUM SERUM 4.8 MEQ/L (3.5-5.1)
[2020-07-16 11:35] LABS: PTH INTACT 52.1 PG/ML (18.5-88.0)
== END ==
LOC: SKLAB5 09:03
PROVIDERS: ATTEND Internal Medicine
DX: D64.9 Anemia, unspecified (principal); I10 Essential (primary) hypertension

== ENCOUNTER → 2020-07-22 | Outpatient (REF) | payer MEDICARE, OTHER ==
[~2020-07-22] MED LIST changes: +GABA-282 PO; -GABA-843 PO
== END ==
LOC: SKLAB5 06:42
PROVIDERS: ATTEND Internal Medicine
DX: Z20.822 Contact with and (suspected) exposure to COVID-19 (principal)

== ENCOUNTER → 2020-07-29 | Outpatient (REF) | payer MEDICARE, OTHER ==
[~2020-07-29] MED LIST changes: -QUET1TAB7 PO; +QUET25TA3 PO
== END ==
LOC: SKLAB5 07:20
PROVIDERS: ATTEND Internal Medicine
DX: Z53.9 Procedure and treatment not carried out, unspecified reason (principal)

== ENCOUNTER → 2020-08-05 | Outpatient (REF) | payer MEDICARE, OTHER | LOC: SKLAB5 07:05 | PROVIDERS: ATTEND Internal Medicine | DX: Z20.822 Contact with and (suspected) exposure to COVID-19 (principal) ==

== ENCOUNTER → 2020-08-12 | Outpatient (REF) | payer MEDICARE, OTHER ==
[~2020-08-12] MED LIST changes: +QUET1TAB7 PO; -QUET25TA3 PO
== END ==
LOC: SKLAB5 07:23
PROVIDERS: ATTEND Internal Medicine
DX: Z53.9 Procedure and treatment not carried out, unspecified reason (principal)

== ENCOUNTER → 2020-08-13 | Outpatient (REF) | payer MEDICARE, OTHER ==
[~2020-08-13] MED LIST changes: -QUET1TAB7 PO; +QUET25TA3 PO
== END ==
LOC: SKLAB5 10:27
PROVIDERS: ATTEND Internal Medicine
DX: N28.9 Disorder of kidney and ureter, unspecified (principal)

== ENCOUNTER → 2020-08-19 | Outpatient (REF) | payer MEDICARE, OTHER | LOC: SKLAB5 06:25 | PROVIDERS: ATTEND Internal Medicine | DX: Z20.822 Contact with and (suspected) exposure to COVID-19 (principal) ==

== ENCOUNTER → 2020-08-26 | Outpatient (REF) | payer MEDICARE, OTHER | LOC: SKLAB5 06:37 | PROVIDERS: ATTEND Internal Medicine | DX: Z20.822 Contact with and (suspected) exposure to COVID-19 (principal) ==

== ENCOUNTER → 2020-09-02 | Outpatient (REF) | payer MEDICARE, OTHER | LOC: SKLAB5 08:00 | PROVIDERS: ATTEND Internal Medicine | DX: Z20.822 Contact with and (suspected) exposure to COVID-19 (principal) ==

== ENCOUNTER → 2020-09-10 | Outpatient (REF) | payer MEDICARE, OTHER ==
[2020-09-10 13:46] LABS: HEMATOCRIT 30.4 % (42.0-52.0); HEMOGLOBIN 9.9 g/dl (13.5-17.5); MEAN CORPUSCULAR HEMOGLOBIN 31.1 pg (27.0-33.0); MEAN CORPUSCULAR HGB CONC 32.6 g/dl (32.0-36.5); MEAN CORPUSCULAR VOLUME 95.6 fl (80.0-96.0); PLATELET COUNT, AUTOMATED 166 10^3/uL (150-450); RED BLOOD COUNT 3.18 10^6/uL (4.30-6.10); WHITE BLOOD COUNT 6.4 10^3/uL (4.0-10.0)
== END ==
LOC: SKLAB5 06:39
PROVIDERS: ATTEND Internal Medicine
DX: N18.9 Chronic kidney disease, unspecified (principal); D63.1 Anemia in chronic kidney disease

== ENCOUNTER → 2020-09-16 | Outpatient (REF) | payer MEDICARE, OTHER | LOC: SKLAB5 06:31 | PROVIDERS: ATTEND Internal Medicine | DX: Z20.822 Contact with and (suspected) exposure to COVID-19 (principal) ==

== ENCOUNTER → 2020-09-23 | Outpatient (REF) | payer MEDICARE, OTHER | LOC: SKLAB5 07:55 | PROVIDERS: ATTEND Internal Medicine | DX: Z20.822 Contact with and (suspected) exposure to COVID-19 (principal) ==

== ENCOUNTER → 2020-09-24 | Outpatient (REF) | payer MEDICARE, OTHER | LOC: SKLAB5 07:01 | PROVIDERS: ATTEND Internal Medicine | DX: Z53.8 Procedure and treatment not carried out for other reasons (principal) ==

== ENCOUNTER → 2020-09-25 | Outpatient (REF) | payer MEDICARE, OTHER ==
[2020-09-25 14:04] LABS: BASO # 0.1 10^3/uL (0.0-0.2); EOS # 0.5 10^3/uL (0.0-0.5); EOS % 8.3 % (0.0-3.0); HEMATOCRIT 33.7 % (42.0-52.0); HEMOGLOBIN 11.3 g/dl (13.5-17.5); LYMPH # 1.2 10^3/uL (1.5-5.0); LYMPH % 19.5 % (24.0-44.0); MEAN CORPUSCULAR HEMOGLOBIN 31.1 pg (27.0-33.0); MEAN CORPUSCULAR HGB CONC 33.5 g/dl (32.0-36.5); MEAN CORPUSCULAR VOLUME 92.8 fl (80.0-96.0); MONO # 0.6 10^3/uL (0.0-0.8); MONO % 9.9 % (2.0-8.0); NEUTROPHILS # 3.7 10^3/uL (1.5-8.5); PLATELET COUNT, AUTOMATED 198 10^3/uL (150-450); RED BLOOD COUNT 3.63 10^6/uL (4.30-6.10); WHITE BLOOD COUNT 6.1 10^3/uL (4.0-10.0)
[2020-09-25 14:39] LABS: ALBUMIN 3.2 GM/DL (3.2-5.2); CALCIUM LEVEL 10.8 MG/DL (8.8-10.2); CREATININE FOR GFR 2.31 MG/DL (0.70-1.30); GLOMERULAR FILTRATION RATE 28.8 (>35); PERCENT SATURATION 30.3 % (19.7-50.0); PHOSPHORUS LEVEL 2.9 MG/DL (2.5-4.9); POTASSIUM SERUM 4.2 MEQ/L (3.5-5.1)
[2020-09-25 14:43] LABS: PTH INTACT 42.7 PG/ML (18.5-88.0)
== END ==
LOC: SKLAB5 07:50
PROVIDERS: ATTEND Internal Medicine
DX: N18.9 Chronic kidney disease, unspecified (principal)

== ENCOUNTER → 2020-10-08 | Outpatient (REF) | payer MEDICARE, OTHER ==
[2020-10-08 08:36] LABS: HEMATOCRIT 30.5 % (42.0-52.0); MEAN CORPUSCULAR HEMOGLOBIN 30.8 pg (27.0-33.0); MEAN CORPUSCULAR HGB CONC 32.8 g/dl (32.0-36.5); MEAN CORPUSCULAR VOLUME 93.8 fl (80.0-96.0); PLATELET COUNT, AUTOMATED 171 10^3/uL (150-450); RED BLOOD COUNT 3.25 10^6/uL (4.30-6.10); WHITE BLOOD COUNT 5.4 10^3/uL (4.0-10.0)
== END ==
LOC: SKLAB5 14:34
PROVIDERS: ATTEND Internal Medicine
DX: N18.9 Chronic kidney disease, unspecified (principal)

== ENCOUNTER → 2020-10-09 | Outpatient (REF) | payer MEDICARE, OTHER | LOC: SKLAB5 07:14 | PROVIDERS: ATTEND Internal Medicine | DX: Z53.8 Procedure and treatment not carried out for other reasons (principal) ==

== ENCOUNTER → 2020-10-22 | Outpatient (REF) | payer MEDICARE, OTHER | LOC: SKLAB5 07:37 | PROVIDERS: ATTEND Internal Medicine | DX: G40.909 Epilepsy, unspecified, not intractable, without status epilepticus (principal); Z79.899 Other long term (current) drug therapy ==

== ENCOUNTER → 2020-11-12 | Outpatient (REF) | payer MEDICARE, OTHER ==
[2020-11-12 09:36] LABS: HEMATOCRIT 30.4 % (42.0-52.0); MEAN CORPUSCULAR HEMOGLOBIN 30.2 pg (27.0-33.0); MEAN CORPUSCULAR HGB CONC 32.9 g/dl (32.0-36.5); MEAN CORPUSCULAR VOLUME 91.8 fl (80.0-96.0); PLATELET COUNT, AUTOMATED 183 10^3/uL (150-450); RED BLOOD COUNT 3.31 10^6/uL (4.30-6.10); WHITE BLOOD COUNT 9.9 10^3/uL (4.0-10.0)
[2020-11-12 09:53] LABS: PTH INTACT 62.2 PG/ML (18.5-88.0)
== END ==
LOC: SKLAB5 06:56
PROVIDERS: ATTEND Internal Medicine
DX: N18.9 Chronic kidney disease, unspecified (principal)

== ENCOUNTER → 2020-12-10 | Outpatient (REF) | payer MEDICARE, OTHER ==
[~2020-12-10] MED LIST changes: +GABA-283 PO; -GABA-845 PO
== END ==
LOC: SKLAB5 08:00
PROVIDERS: ATTEND Internal Medicine
DX: Z53.8 Procedure and treatment not carried out for other reasons (principal)

== ENCOUNTER → 2020-12-31 | Outpatient (REF) | payer MEDICARE, OTHER ==
[~2020-12-31] MED LIST changes: +OMEP40CA4 PO; -OMEP40CA97 PO
[2020-12-31 11:55] LABS: HEMATOCRIT 30.8 % (42.0-52.0); HEMOGLOBIN 10.5 g/dl (13.5-17.5); MEAN CORPUSCULAR HEMOGLOBIN 30.5 pg (27.0-33.0); MEAN CORPUSCULAR HGB CONC 34.1 g/dl (32.0-36.5); MEAN CORPUSCULAR VOLUME 89.5 fl (80.0-96.0); RED BLOOD COUNT 3.44 10^6/uL (4.30-6.10); WHITE BLOOD COUNT 5.8 10^3/uL (4.0-10.0)
[2020-12-31 11:56] LABS: PLATELET COUNT, AUTOMATED 183 10^3/uL (150-450)
[2020-12-31 12:26] LABS: ALBUMIN 2.8 GM/DL (3.2-5.2); CALCIUM LEVEL 10.8 MG/DL (8.8-10.2); CREATININE FOR GFR 1.85 MG/DL (0.70-1.30); GLOMERULAR FILTRATION RATE 37.3 (>35); PHOSPHORUS LEVEL 2.4 MG/DL (2.5-4.9); POTASSIUM SERUM 4.3 MEQ/L (3.5-5.1)
[2020-12-31 13:07] LABS: PTH INTACT 60.4 PG/ML (18.5-88.0)
== END ==
LOC: SKLAB5 11:23
PROVIDERS: ATTEND Internal Medicine
DX: N28.9 Disorder of kidney and ureter, unspecified (principal)

== ENCOUNTER → 2021-01-07 | Outpatient (REF) | payer MEDICARE, OTHER ==
[2021-01-07 14:22] LABS: HEMATOCRIT 30.7 % (42.0-52.0); HEMOGLOBIN 10.2 g/dl (13.5-17.5); MEAN CORPUSCULAR HEMOGLOBIN 30.2 pg (27.0-33.0); MEAN CORPUSCULAR HGB CONC 33.2 g/dl (32.0-36.5); MEAN CORPUSCULAR VOLUME 90.8 fl (80.0-96.0); PLATELET COUNT, AUTOMATED 185 10^3/uL (150-450); RED BLOOD COUNT 3.38 10^6/uL (4.30-6.10); WHITE BLOOD COUNT 5.7 10^3/uL (4.0-10.0)
[2021-01-07 14:50] LABS: ALBUMIN 2.9 GM/DL (3.2-5.2); ALT/SGPT 11 U/L (12-78); BILIRUBIN,TOTAL 0.6 MG/DL (0.2-1.0); BLOOD UREA NITROGEN 46 MG/DL (7-18); CALCIUM LEVEL 10.6 MG/DL (8.8-10.2); CARBON DIOXIDE LEVEL 26 MEQ/L (21-32); CHLORIDE LEVEL 113 MEQ/L (98-107); CREATININE FOR GFR 2.36 MG/DL (0.70-1.30); GLOMERULAR FILTRATION RATE 28.1 (>35); GLUCOSE, FASTING 117 MG/DL (70-100); POTASSIUM SERUM 4.2 MEQ/L (3.5-5.1); SODIUM LEVEL 143 MEQ/L (136-145); TOTAL PROTEIN 5.2 GM/DL (6.4-8.2)
[2021-01-07 15:00] LABS: PTH INTACT 53.8 PG/ML (18.5-88.0)
[2021-01-07 15:11] LABS: HEPATITIS B SURFACE ANTIGEN NEGATIVE (NEGATIVE)
[2021-01-07 15:39] LABS: HIV SCREEN CENTAUR SOURCE NEGATIVE (NEGATIVE)
== END ==
LOC: SKLAB5 08:57
PROVIDERS: ATTEND Internal Medicine
DX: N18.9 Chronic kidney disease, unspecified (principal); D63.1 Anemia in chronic kidney disease; I12.9 Hypertensive chronic kidney disease with stage 1 through stage 4 chronic kidney disease, or unspecified chronic kidney disease

== ENCOUNTER → 2021-02-11 | Outpatient (REF) | payer MEDICARE, OTHER ==
[2021-02-11 10:55] LABS: HEMATOCRIT 27.6 % (42.0-52.0); HEMOGLOBIN 9.3 g/dl (13.5-17.5); MEAN CORPUSCULAR HEMOGLOBIN 29.9 pg (27.0-33.0); MEAN CORPUSCULAR HGB CONC 33.7 g/dl (32.0-36.5); MEAN CORPUSCULAR VOLUME 88.7 fl (80.0-96.0); PLATELET COUNT, AUTOMATED 178 10^3/uL (150-450); RED BLOOD COUNT 3.11 10^6/uL (4.30-6.10); WHITE BLOOD COUNT 8.1 10^3/uL (4.0-10.0)
[2021-02-11 11:16] LABS: PTH INTACT 58.5 PG/ML (18.5-88.0)
== END ==
LOC: SKLAB5 09:21
PROVIDERS: ATTEND Internal Medicine
DX: N28.9 Disorder of kidney and ureter, unspecified (principal); D64.9 Anemia, unspecified

== ENCOUNTER → 2021-03-15 | Outpatient (REF) | payer MEDICARE, OTHER ==
[~2021-03-15] MED LIST changes: +QUET1TAB17 PO; -QUET25TA3 PO
[2021-03-15 07:08] LABS: BASO % 0.8 % (0.0-1.0); EOS # 0.5 10^3/uL (0.0-0.5); EOS % 9.1 % (0.0-3.0); HEMATOCRIT 26.9 % (42.0-52.0); HEMOGLOBIN 8.9 g/dl (13.5-17.5); LYMPH # 1.1 10^3/uL (1.5-5.0); LYMPH % 19.9 % (24.0-44.0); MEAN CORPUSCULAR HEMOGLOBIN 29.9 pg (27.0-33.0); MEAN CORPUSCULAR HGB CONC 33.1 g/dl (32.0-36.5); MEAN CORPUSCULAR VOLUME 90.3 fl (80.0-96.0); MONO # 0.5 10^3/uL (0.0-0.8); MONO % 9.8 % (2.0-8.0); NEUTROPHILS # 3.2 10^3/uL (1.5-8.5); NEUTROPHILS % 59.8 % (36.0-66.0); PLATELET COUNT, AUTOMATED 155 10^3/uL (150-450); RED BLOOD COUNT 2.98 10^6/uL (4.30-6.10); WHITE BLOOD COUNT 5.3 10^3/uL (4.0-10.0)
[2021-03-15 07:39] LABS: ALBUMIN 2.3 GM/DL (3.2-5.2); CALCIUM LEVEL 9.9 MG/DL (8.8-10.2); CHOLESTEROL RISK RATIO 2.806 (<5); CREATININE FOR GFR 2.13 MG/DL (0.70-1.30); GLOMERULAR FILTRATION RATE 31.6 (>35); PHOSPHORUS LEVEL 2.1 MG/DL (2.5-4.9); POTASSIUM SERUM 4.4 MEQ/L (3.5-5.1)
[2021-03-15 10:16] LABS: PTH INTACT 79.9 PG/ML (18.5-88.0)
== END ==
LOC: SKLAB5 08:59
PROVIDERS: ATTEND Internal Medicine
DX: N28.9 Disorder of kidney and ureter, unspecified (principal); Z79.899 Other long term (current) drug therapy

== ENCOUNTER 2021-03-22 08:31 | Outpatient (CLI) | payer MEDICARE, OTHER ==
[~2021-03-22] VITALS: Ht 180.3 cm; Wt 68.0 kg
[~2021-03-22 08:31] MED LIST changes: +FERRIC CARBOXYMALTOSE INJ 750 MG, VIAL MATE ADAPTER 1 EACH in NS 250 ML IV ONE
[2021-03-22 08:35] VITALS: BP 117/58
[2021-03-22 11:00] VITALS: BP 171/77
== END 2021-03-22 11:00 | disposition home or self-care (01) ==
LOC: M INFU 08:31
PROVIDERS: ATTEND Internal Medicine Nephrology
DX: D50.9 Iron deficiency anemia, unspecified (principal)
CPT/HCPCS: 96365; 96366; J1439

== ENCOUNTER → 2021-04-15 | Outpatient (REF) | payer MEDICARE, OTHER ==
[~2021-04-15] MED LIST changes: -FERRIC CARBOXYMALTOSE INJ 750 MG, VIAL MATE ADAPTER 1 EACH in NS 250 ML IV ONE
[2021-04-15 14:15] LABS: HEMATOCRIT 27.7 % (42.0-52.0); HEMOGLOBIN 9.3 g/dl (13.5-17.5); MEAN CORPUSCULAR HEMOGLOBIN 30.2 pg (27.0-33.0); MEAN CORPUSCULAR HGB CONC 33.6 g/dl (32.0-36.5); MEAN CORPUSCULAR VOLUME 89.9 fl (80.0-96.0); PLATELET COUNT, AUTOMATED 202 10^3/uL (150-450); RED BLOOD COUNT 3.08 10^6/uL (4.30-6.10); WHITE BLOOD COUNT 6.1 10^3/uL (4.0-10.0)
== END ==
LOC: SKLAB5 07:02
PROVIDERS: ATTEND Internal Medicine
DX: N18.9 Chronic kidney disease, unspecified (principal)

== ENCOUNTER → 2021-04-27 | Outpatient (REF) | payer MEDICARE, OTHER | LOC: SKLAB5 11:02 | PROVIDERS: ATTEND Internal Medicine | DX: Z20.822 Contact with and (suspected) exposure to COVID-19 (principal) ==

== ENCOUNTER → 2021-04-29 | Outpatient (REF) | payer MEDICARE, OTHER | LOC: SKLAB5 09:49 | PROVIDERS: ATTEND Internal Medicine | DX: Z20.822 Contact with and (suspected) exposure to COVID-19 (principal); Z53.8 Procedure and treatment not carried out for other reasons ==

== ENCOUNTER → 2021-05-04 | Outpatient (REF) | payer MEDICARE, OTHER ==
[2021-05-04 14:09] LABS: HEMATOCRIT 28.1 % (42.0-52.0); HEMOGLOBIN 9.5 g/dl (13.5-17.5); MEAN CORPUSCULAR HEMOGLOBIN 30.9 pg (27.0-33.0); MEAN CORPUSCULAR HGB CONC 33.8 g/dl (32.0-36.5); MEAN CORPUSCULAR VOLUME 91.5 fl (80.0-96.0); PLATELET COUNT, AUTOMATED 175 10^3/uL (150-450); RED BLOOD COUNT 3.07 10^6/uL (4.30-6.10); WHITE BLOOD COUNT 8.2 10^3/uL (4.0-10.0)
[2021-05-04 14:40] LABS: C REACTIVE PROTEIN QUANTITATIV 2.38 MG/DL (0.00-0.30); CALCIUM LEVEL 10.2 MG/DL (8.8-10.2); CREATININE FOR GFR 1.94 MG/DL (0.70-1.30); GLOMERULAR FILTRATION RATE 35.2 (>35); POTASSIUM SERUM 4.8 MEQ/L (3.5-5.1)
== END ==
LOC: SKLAB5 05-03 14:01
PROVIDERS: ATTEND Internal Medicine
DX: R50.9 Fever, unspecified (principal); Z20.822 Contact with and (suspected) exposure to COVID-19
CPT/HCPCS: 36415; 80048; 85027; 85379; 86140; U0002

== ENCOUNTER → 2021-05-05 | Outpatient (REF) | payer MEDICARE, OTHER ==
[2021-05-05 12:46] LABS: HEMATOCRIT 25.7 % (42.0-52.0); HEMOGLOBIN 8.7 g/dl (13.5-17.5); MEAN CORPUSCULAR HEMOGLOBIN 30.7 pg (27.0-33.0); MEAN CORPUSCULAR HGB CONC 33.9 g/dl (32.0-36.5); MEAN CORPUSCULAR VOLUME 90.8 fl (80.0-96.0); PLATELET COUNT, AUTOMATED 161 10^3/uL (150-450); RED BLOOD COUNT 2.83 10^6/uL (4.30-6.10); WHITE BLOOD COUNT 11.7 10^3/uL (4.0-10.0)
[2021-05-05 13:13] LABS: CALCIUM LEVEL 9.6 MG/DL (8.8-10.2); CREATININE FOR GFR 2.07 MG/DL (0.70-1.30); GLOMERULAR FILTRATION RATE 32.7 (>35); POTASSIUM SERUM 4.1 MEQ/L (3.5-5.1)
--- NOTE | 2021-05-05 14:52 | REP ---
INDICATION: COVID /FEVER. COMPARISON: Multiple the latest 06/17/2020 also portable TECHNIQUE: Portable FINDINGS: The technique utilized in obtaining the radiograph has magnified the cardiac silhouette and accentuated the interstitial markings. Cardiomediastinal silhouette is stable. The left retrocardiac opacity seen previously is clear. There are no new abnormal opacities. The left CP angle is sharp. The right CP angle has not been included on the radiograph. There is no change in the osseous structures. IMPRESSION: No evidence of acute cardiopulmonary disease. <Electronically signed by Carson Calloway > 05/05/21 0816
== END ==
LOC: SKLAB5 07:49
PROVIDERS: ATTEND Internal Medicine
DX: U07.1 COVID-19 (principal); Z79.899 Other long term (current) drug therapy

== ENCOUNTER → 2021-05-07 | Outpatient (REF) | payer MEDICARE, OTHER | LOC: SKLAB2 08:48 | PROVIDERS: ATTEND Internal Medicine | DX: U07.1 COVID-19 (principal); Z53.8 Procedure and treatment not carried out for other reasons ==

== ENCOUNTER → 2021-05-10 | Outpatient (REF) | payer MEDICARE, OTHER ==
[2021-05-10 09:29] LABS: HEMATOCRIT 28.4 % (42.0-52.0); HEMOGLOBIN 9.4 g/dl (13.5-17.5); MEAN CORPUSCULAR HEMOGLOBIN 29.7 pg (27.0-33.0); MEAN CORPUSCULAR HGB CONC 33.1 g/dl (32.0-36.5); MEAN CORPUSCULAR VOLUME 89.6 fl (80.0-96.0); PLATELET COUNT, AUTOMATED 258 10^3/uL (150-450); RED BLOOD COUNT 3.17 10^6/uL (4.30-6.10); WHITE BLOOD COUNT 17.7 10^3/uL (4.0-10.0)
[2021-05-10 10:22] LABS: CALCIUM LEVEL 11.5 MG/DL (8.8-10.2); CREATININE FOR GFR 2.45 MG/DL (0.70-1.30); GLOMERULAR FILTRATION RATE 26.9 (>35); POTASSIUM SERUM 3.4 MEQ/L (3.5-5.1)
--- NOTE | 2021-05-10 14:17 | REP ---
INDICATION: LEUKOCYTOSIS. COMPARISON: 05/05/2021. TECHNIQUE: Single portable AP view of the chest was performed. FINDINGS: There are scattered patchy infiltrates in the right lung. There appears to be some subtle left lower lung infiltrates. The heart is upper limits of normal in size. Calcific plaque is seen in the thoracic aorta. The mediastinal silhouette is grossly unchanged. IMPRESSION: Scattered patchy infiltrates in the right lung. Suspect subtle peripheral infiltrate left lower lung. <Electronically signed by Vidal Pina > 05/10/21 [id number]
== END ==
LOC: SKLAB5 09:59 → SKLAB2 10:00
PROVIDERS: ATTEND Internal Medicine
DX: U07.1 COVID-19 (principal); J18.9 Pneumonia, unspecified organism

== ENCOUNTER → 2021-05-10 | Outpatient (REF) | payer MEDICARE, OTHER ==
[~2021-05-10] MED LIST changes: +ASPI81TA26 PO; +AZIT-10 PO; +BISA10SU27 PR; +DEPA1CAP PO; +ENSU1LIQ36 PO; +FERR5ELX PO; +ISOS1TAB36 PO; +LISI-898 PO; +MILKSUS3 PO; +SENN-111 PO
== END ==
LOC: SKLAB2 07:00
PROVIDERS: ATTEND Internal Medicine
DX: U07.1 COVID-19 (principal); D72.829 Elevated white blood cell count, unspecified; E86.0 Dehydration; Z53.9 Procedure and treatment not carried out, unspecified reason

== ENCOUNTER → 2021-05-12 | Outpatient (REF) | payer MEDICARE, OTHER ==
[2021-05-12 12:38] LABS: HEMATOCRIT 27.3 % (42.0-52.0); HEMOGLOBIN 9.2 g/dl (13.5-17.5); MEAN CORPUSCULAR HEMOGLOBIN 30.5 pg (27.0-33.0); MEAN CORPUSCULAR HGB CONC 33.7 g/dl (32.0-36.5); MEAN CORPUSCULAR VOLUME 90.4 fl (80.0-96.0); PLATELET COUNT, AUTOMATED 344 10^3/uL (150-450); RED BLOOD COUNT 3.02 10^6/uL (4.30-6.10)
[2021-05-12 13:17] LABS: CALCIUM LEVEL 10.8 MG/DL (8.8-10.2); CREATININE FOR GFR 2.3 MG/DL (0.70-1.30); GLOMERULAR FILTRATION RATE 28.9 (>35); POTASSIUM SERUM 4.1 MEQ/L (3.5-5.1); PTH INTACT 53.4 PG/ML (18.5-88.0)
[2021-05-12 14:47] LABS: PROLACTIN 14.4 NG/ML (2.1-17.7)
== END ==
LOC: SKLAB5 07:00
PROVIDERS: ATTEND Internal Medicine
DX: U07.1 COVID-19 (principal); Z79.899 Other long term (current) drug therapy

== ENCOUNTER → 2021-05-13 | Outpatient (REF) | payer MEDICARE, OTHER ==
[2021-05-13 13:22] LABS: HEMOGLOBIN 9.3 g/dl (13.5-17.5); MEAN CORPUSCULAR HGB CONC 33.2 g/dl (32.0-36.5); MEAN CORPUSCULAR VOLUME 90.3 fl (80.0-96.0); PLATELET COUNT, AUTOMATED 340 10^3/uL (150-450); WHITE BLOOD COUNT 18.8 10^3/uL (4.0-10.0)
[2021-05-13 13:45] LABS: CALCIUM LEVEL 11.2 MG/DL (8.8-10.2); CREATININE FOR GFR 2.15 MG/DL (0.70-1.30); GLOMERULAR FILTRATION RATE 31.3 (>35); POTASSIUM SERUM 4.1 MEQ/L (3.5-5.1)
== END ==
LOC: SKLAB5 07:00
PROVIDERS: ATTEND Internal Medicine
DX: U07.1 COVID-19 (principal); Z79.899 Other long term (current) drug therapy

== ENCOUNTER 2021-05-14 11:44 | Inpatient (IN) | payer MEDICARE, OTHER ==
[~2021-05-14] VITALS: Ht 177.8 cm; Wt 66.3 kg
[~2021-05-14 11:44] MED LIST changes: -ASPI81TA26 PO; -AZIT-10 PO; -BISA10SU27 PR; -DEPA1CAP PO; -ENSU1LIQ36 PO; -FERR5ELX PO; -ISOS1TAB36 PO; -LISI-898 PO; -MILKSUS3 PO; -SENN-111 PO
[2021-05-14] MEDS: NS 1,000 ML IV SCH ×2 (12:25→19:55)
[2021-05-14] MEDS ORDERED: NS 500 ML IV ONE (12:25)
--- NOTE | 2021-05-14 13:03 | REP ---
INDICATION: Coronavirus workup. COMPARISON: 05/10/2021. TECHNIQUE: Single portable AP view of the chest was performed. FINDINGS: There now diffuse bilateral infiltrates which have increased since the prior study, right greater than left. The heart and mediastinum are unchanged. IMPRESSION: Diffuse bilateral infiltrates have increased since the prior study, right greater than left. <Electronically signed by Vidal Pina > 05/14/21 1300
[2021-05-14 13:48] LABS: INR 1.14
[2021-05-14 13:49] LABS: FIBRINOGEN 548 MG/DL (268-480); PARTIAL THROMBOPLASTIN TIME 31.5 SECONDS (25.9-37.0)
[2021-05-14 14:08] LABS: ALBUMIN 2.4 GM/DL (3.2-5.2); BILIRUBIN,TOTAL 0.5 MG/DL (0.2-1.0); C REACTIVE PROTEIN QUANTITATIV 13.4 MG/DL (0.00-0.30); CALCIUM LEVEL 11.5 MG/DL (8.8-10.2); CK-MB VALUE MASS 4.3 NG/ML (<3.6); CREATININE FOR GFR 2.31 MG/DL (0.70-1.30); GLOMERULAR FILTRATION RATE 28.8 (>35); MAGNESIUM LEVEL 2.1 MG/DL (1.8-2.4); MB/CK RELATIVE INDEX 4.73 (< OR =4); POTASSIUM SERUM 4.3 MEQ/L (3.5-5.1); TOTAL PROTEIN 6.1 GM/DL (6.4-8.2); TROPONIN I 0.2 NG/ML (< 0.10)
[2021-05-14 14:16] LABS: D-DIMER QUANT > 4000 ng/ml (<500)
[2021-05-14] MEDS ORDERED: cefTRIAXone SOD 2 GM in D5W MINI-BAG PLUS 50 ML IV ONE (14:35)
[2021-05-14] MEDS ORDERED: AZITHROMYCIN INJ 500 MG, VIAL MATE ADAPTER 1 EACH in NS 250 ML IV ONE (14:35)
[2021-05-14 16:37] LABS: BASO # 0.1 10^3/uL (0.0-0.2); BASO % 0.4 % (0.0-1.0); EOS # 0.2 10^3/uL (0.0-0.5); EOS % 1.2 % (0.0-3.0); HEMATOCRIT 27.3 % (42.0-52.0); HEMOGLOBIN 9.2 g/dl (13.5-17.5); LYMPH # 0.5 10^3/uL (1.5-5.0); LYMPH % 2.9 % (24.0-44.0); MEAN CORPUSCULAR HGB CONC 33.7 g/dl (32.0-36.5); MEAN CORPUSCULAR VOLUME 88.9 fl (80.0-96.0); MONO # 1.1 10^3/uL (0.0-0.8); NEUTROPHILS # 15.7 10^3/uL (1.5-8.5); NEUTROPHILS % 85.2 % (36.0-66.0); PLATELET COUNT, AUTOMATED 351 10^3/uL (150-450); RED BLOOD COUNT 3.07 10^6/uL (4.30-6.10); WHITE BLOOD COUNT 18.5 10^3/uL (4.0-10.0)
[2021-05-14] MEDS ORDERED: VANCOMYCIN HCL 1,000 MG, VIAL MATE ADAPTER 1 EACH in NS 250 ML IV SCH (17:15)
[2021-05-14] MEDS: HumaLOG INSULIN (NovoLOG) PER UNIT SC SCH (18:00)
[2021-05-14 18:24] LABS: TROPONIN I 0.18 NG/ML (< 0.10)
[2021-05-14] MEDS ORDERED: BISA10SU27 PR (18:39)
[2021-05-14] MEDS ORDERED: ASPI81TA26 PO (18:39)
[2021-05-14] MEDS ORDERED: AZIT-10 PO (18:39)
[2021-05-14] MEDS ORDERED: DEPA1CAP PO (18:40)
[2021-05-14] MEDS ORDERED: MILKSUS3 PO (18:40)
[2021-05-14] MEDS ORDERED: LISI-898 PO (18:40)
[2021-05-14] MEDS ORDERED: HOME MED LIST COMPLETE! XX SCH (18:40)
[2021-05-14] MEDS ORDERED: ISOS1TAB36 PO (18:40)
[2021-05-14] MEDS ORDERED: SENN-111 PO (18:40)
[2021-05-14] MEDS ORDERED: ENSU1LIQ36 PO (18:40)
[2021-05-14] MEDS ORDERED: SPIR-10 PO (18:40)
[2021-05-14] MEDS ORDERED: MINO2.5T PO (18:40)
[2021-05-14] MEDS ORDERED: FERR5ELX PO (18:40)
[2021-05-14] MEDS ORDERED: ALBUTEROL 90 MCG/ACT 8GM HFA INHALER INH PRN (20:30)
[2021-05-14] MEDS ORDERED: GLUCAGON INJ 1MG VIAL SC PRN (20:40)
[2021-05-14] MEDS ORDERED: DEXTROSE 50% 50 ML SYRINGE IV PRN (20:40)
[2021-05-14] MEDS ORDERED: GLUCOSE 4GM CHEW TABLET PO PRN (20:40)
--- NOTE | 2021-05-14 20:46 | HPEPDOC ---
[facility] Medical History & Physical Date of Admission May 14, 2021 Date of Service: May 14, 2021 Attending Physician: Nisa Gaona MD History and Physical CHIEF COMPLAINT: Worsening pneumonia HISTORY OF PRESENT ILLNESS: Patient is an 86-year-old male with PMH of COVID-19 infection (initially diagnos ed 05/03/21), dementia with behavioral disturbance, hypertension, CKD stage IV, anemia, diabetes mellitus, secondary hyperparathyroidism, coronary artery disease, major depressive disorder, hyperlipidemia, osteoporosis who presented to [facility] emergency room from [facility] with a diagnosis of a worsening bilateral pneumonia and poor IV access per ER physician. The patient had been getting managed for COVID-19 infection with pneumonia as outpatient and labs had continued to get worse. Today his white count was 21,000, he had poor IV access and his altered mental status worsens. His vital signs showed his respiratory rate 32, pulse 87, temperature 96.7, blood pressure 170/73, 91% on room air. They were unable to keep an IV in. He was also noted to be increasingly tachypnea. He was sent over from the [facility] to be further evaluated by the emergency room staff. There is no noted complaint of the patient had chest pain, chills, nausea, vomiting, diarrhea. In the emergency room the patient was saturating at 93% on room air, other vital signs were stable. WBC 18.5, creatinine 2.3 which is close to his baseline. Calcium elevated at 11.5. Initial troponin elevated at 0.20 but later trended down 0.18. Resp panel showed pos for COVID-19, Rhino/enterovirus, coronavirus Oc43. BNP was noted to be elevated at 8,317 and, although he is likely always elevated, this was markedly higher. ECG showed . CXR showed diffuse bilateral infiltrates have increased since the prior study, right greater than left. Procalcitonin was borderline at 0.24, healthcare associated pneumonia abx were started. Patient was evaluated by myself and patient was not engaging in conversation, was resting with the blankets over his head. When asked about symptoms he would not respond. He was ultimately admitted for COVID-19 infection with superimposed pneumonia, sepsis, acute metabolic encephalopathy 2/2 to pneumonia with underlying dementia. Note: At baseline patient can tell you his name, he eats on his own. I spoke with his daughter Guy this evening who confirmed. Patient has behaviors and can be aggressive at times. REVIEW OF SYSTEMS: Unable to obtain due to mental status PAST MEDICAL HISTORY: COVID 19 infection (05/03/21), dementia with behavioral disturbance, hypertension, CKD stage IV, anemia, diabetes mellitus, secondary hyperparathyroidism, coronary artery disease, major depressive disorder, hyperlipidemia, osteoporosis PAST SURGICAL HISTORY: Unable to obtain due to mental status, not in NH chart FAMILY HISTORY: Unable to obtain due to mental status, not in NH chart SOCIAL HISTORY: Unable to obtain due to mental status, not in NH chart ALLERGIES: Please see below. HOME MEDICATIONS: Please see below. PHYSICAL EXAMINATION: VS: Temperature 98.8, heart rate 86, respiratory rate 24, blood pressure 150/70, 98% on room air CONSTITUTIONAL: No acute distress, in bed with soft restraints, not engaging in conversation with me EYES: PERRLA, EOM intact HENT, MOUTH: Normocephalic, atraumatic, moist mucous membranes NECK: SUPPLE, no JVD, no lymphadenopathy, no carotid bruit CV: Regular rate and rhythm, S1S2 normal, no murmurs/rubs/gallops RESPIRATORY: Clear to auscultation bilaterally, no rales/rhonchi/wheezes GI: thin abdomen, BS positive in 4 quadrants, soft, nontender, nondistended, no rebound or guarding, no organomegaly : Deferred MUSCULOSKELETAL: thin ext, normal ROM. No cyanosis, clubbing, swelling, joint deformity, extremity edema INTEGUMENTARY: Intact, no rashes, no lesions, no erythema NEUROLOGIC: unable to assess cranial Nerves II-XII, no focal deficits PSYCHIATRIC: unable to assess LABORATORY DATA: Please see below IMAGING: CXR: Diffuse bilateral infiltrates have increased since the prior study, right greater than left. Echocardiogram: 1. Mild aortic valve sclerosis of a 3-cusp aortic valve. No aortic stenosis or regurgitation. 2. Normal left ventricle internal dimensions and wall thickness. Normal regional left ventricular (LV) wall motion and wall thickening. Normal LV systolic function. Left ventricular ejection fraction (LVEF) 60% by visual estimate. Grade 1 LV diastolic dysfunction. 3. Mild dilatation of the aortic root at the level of the sinus of Valsalva (3.8 cm). 4. Mild mitral annular calcification. No mitral regurgitation. 5. Moderately technically difficult echocardiogram. ASSESSMENT: 86-year-old male with PMH of COVID-19 infection (initially diagnosed 05/03/21), dementia with behavioral disturbance, hypertension, CKD stage IV, anemia, diabetes mellitus, secondary hyperparathyroidism, coronary artery disease, major depressive disorder, hyperlipidemia, osteoporosis admitted for COVID-19 infection with superimposed pneumonia, sepsis, acute metabolic encephalopathy 2/2 to pneumonia with underlying dementia. PLAN: COVID-19 infection with superimposed healthcare associated pneumonia, sepsis -Diagnosed 05/03 at [facility], has been getting treated as o/p with abx -CXR today showed worsening b/l infiltrates, WBC 21K, LA wnl; however, RR 25, increasing confusion with patient taking out IV -Today shows + for COVID, Rhino/enterovirus, coronavirus Oc43. -ER discussed with daughter (and I later confirmed with talking to her too) that she would like him to be restrained for Iv to stay in/ treatment if needed -Procalcitonin 0.24, borderline -Decision to treat with abx made -Started on cefepime, vancomycin, IS Q2Hrs (if able), albuterol/ipratropium ATC, albuterol PRN -F/u MRSA, sputum culture if able to obtain, covid protocol labs -On precautions Acute metabolic encephalopathy 2/2 to pneumonia with underlying dementia -At baseline has behaviors, aggression with dementia. Currently increasingly confused per notes and staff -Not at baseline -In soft restraints currently to treat per daughter's wishes so patient will not pull out IV -Continue to monitor closely, redirect whenever possible Elevated troponin r/o ischemic demand (presence of sepsis, CHF) vs. developing ACS -Hx of CAD -Trop improving, trending down -ECG -Last echo from 2019 above, F/u new echo -Follows with cardiology, Dr. Tran. Can consult if worsens. -F/u trops scheduled, treat CHF if worsens, monitor on tele HFpEF with exacerbation -Last echo above -BNP 8317, increased from last on file -Stopped IVFs currently as BP stable, Cr at his baseline -Holding PO meds (ACEi, spironolactone) as he is increasingly altered and unable to take pills. Consider resuming when more awake and alert -F/u new echocardiogram DM type II -Elevated BS likely 2/2 to sepsis -FS Q6H with coverage with ISS -When taking PO, start consistent carb diet CKD Stage IV -Cr at baseline -Holding IV 2/2 to CHF with exacerbation -Holding home PO meds, nephrotoxic medications -Follows with Dr. Doherty, if needed can consult. Hypercalcemia with hx of secondary hyperparathyroidism -Level 11.5 -On cinacalcet at home -F/u daily labs -If worsens, consider nephro consult to help manage CAD -see above HTN -Stable Anemia of chronic disease/RUBY -H/H stable -Daily CBC Dementia with behavioral disturbance -See above GI px -IV protonix DVT px -heparin sC DISPOSITION: Admitted to [facility] floor. Currently DNR/DNI. Spoke with his daughter Guy who confirmed status. Vital Signs Vital Signs Date Time Temp Pulse Resp B/P (MAP) Pulse Ox O2 Delivery O2 Flow Rate FiO2 05/14/21 18:50 86 158/70 93 Room Air 05/14/21 18:44 98.8 24 Laboratory Data Labs 24H Laboratory Tests 2 05/14/21 12:20: Prothrombin Time 15.0H, Prothromb Time International Ratio 1.14, Activated Part ial Thromboplast Time 31.5, Fibrinogen 548H, D-Dimer, Quantitative > 4000H, Anion Gap 9, Glomerular Filtration Rate 28.8L, Lactic Acid Level 1.5, Calcium Level 11.5H, Magnesium Level 2.1, Ferritin 331, Total Bilirubin 0.5, Aspartate Amino Transf (AST/SGOT) 36, Alanine Aminotransferase (ALT/SGPT) 37, Alkaline Phosphatase 118H, Lactate Dehydrogenase 419H, Total Creatine Kinase 91, Creatine Kinase MB 4.3H, Creatine Kinase MB Relative Index 4.73H, Troponin I 0.20H, C- Reactive Protein, Quantitative 13.40H, Total Protein 6.1L, Albumin 2.4L, Albumin/Globulin Ratio 0.6 05/14/21 12:28: 05/14/21 16:26: Troponin I 0.18H, Immature Granulocyte % (Auto) 4.3H, Neutrophils (%) (Auto) 85 .2H, Lymphocytes (%) (Auto) 2.9L, Monocytes (%) (Auto) 6.0, Eosinophils (%) (Auto) 1.2, Basophils (%) (Auto) 0.4, Neutrophils # (Auto) 15.7H, Lymphocytes # (Auto) 0.5L, Monocytes # (Auto) 1.1H, Eosinophils # (Auto) 0.2, Basophils # (Auto) 0.1, Nucleated Red Blood Cells % (auto) 0.1H, HZ-Syi-F-Type Natriuretic Peptide 8317H, Procalcitonin 0.24 CBC/BMP Laboratory Tests 05/14/21 12:20 05/14/21 16:26 Microbiology Microbiology 05/14/21 Respiratory Virus Panel (PCR) ([facility]) - Final, Complete SARS-CoV-2 (COVID 19) Coronavirus Oc43 Human Rhinovirus/Enterovirus 05/14/21 Blood Culture, Received Pending 05/14/21 Blood Culture, Received Pending Home Medications Scheduled Aspirin (Aspirin EC) 81 Mg Tablet.dr, 81 MG PO DAILY Azithromycin (Azithromycin) 250 Mg Tablet, 250 MG PO DAILY Cinacalcet HCl (Sensipar) 60 Mg Tab, 60 MG PO Q2D Divalproex Sodium (Depakote Sprinkle) 125 Mg Cap.drLitaspr, 125 MG PO DAILY Ferrous Sulfate (Ferrous Sulfate) 220 Mg/5 Ml Elixir, 7.3 ML PO BID Isosorbide Mononitrate (Isosorbide Mononitrate ER) 60 Mg Tab.er.24h, 60 MG PO DAILY Lactose-Reduced Food (Ensure Enlive) 237 Ml Liquid, 237 ML PO TID Lisinopril (Lisinopril) 5 Mg Tablet, 5 MG PO DAILY Minoxidil (Minoxidil) 2.5 Mg Tablet, 5 MG PO BID Sennosides (Senna Lax) 8.6 Mg Tablet, 17.6 MG PO DAILY Spironolactone (Spironolactone) 25 Mg Tablet, 25 MG PO DAILY Scheduled PRN Bisacodyl (Bisacodyl) 10 Mg Supp.rect, 10 MG RI DAILY PRN for CONSTIPATION Magnesium Hydroxide (Milk of Magnesia) 400 Mg/5 Ml Oral.susp, 30 ML PO DAILY PRN for CONSTIPATION Allergies Coded Allergies: No Known Allergies (Verified , 07/16/10) A-FIB/CHADSVASC A-FIB History Current/History of A-Fib/PAF?: No Current PO Anticoag Therapy: No Age/Risk Factor Scoring CHADSVASC: CHADSVASC Response (Comments) Value Age Risk Factor Age >/= 75 years old 2 Gender Risk Factor Male 0 Hx of CHF Yes 1 Hx of HTN Yes 1 Hx of Stroke/TIA/or VTE No 0 Hx of Diabetes Yes 1 Hx of Vascular Disease No 0 Total 5 Treatment Treatment ordered: Other Other anticoagulant ordered: heparin Nisa Gaona MD May 14, 2021 20:46
[2021-05-14] MEDS ORDERED: HEPARIN SOD (PORCINE) 5000UNITS/ML 1ML VIAL/SYRINGE SQ SCH (21:00)
--- OUTSIDE RECORDS SUMMARY | 2021-05-14 21:16 | CCD ---
Author Author [facility] Organization [facility] Address Unknown Phone Unavailable Support Name Relationship Address Phone ANATOLIY LU Next Of Kin [address] [place] [address] NICOLASA FABIAN Next Of Kin [address] [place] [address] RE Next Of Kin Unknown Unavailable Kris COPE (POElana) MISA Next Of Kin [address] [place] [address] LAFJOANIE NITHYA SINHA Next Of Kin [address] [place], [place] Unavailable LU COPE ECON [address] [place] [address] [phone] Re-disclosure Warning The records that you are about to access may contain information from federally-assisted alcohol or drug abuse programs. If such information is present, then the following federally mandated warning applies: This information has been disclosed to you from records protected by federal confidentiality rules (42 CFR part 2). The federal rules prohibit you from making any further disclosure of this information unless further disclosure is expressly permitted by the written consent of the person to whom it pertains or as otherwise permitted by 42 CFR part 2. A general authorization for the release of medical or other information is NOT sufficient for this purpose. The Federal rules restrict any use of the information to criminally investigate or prosecute any alcohol or drug abuse patient.The records that you are about to access may contain highly sensitive health information, the redisclosure of which is protected by Article 27-F of the [facility] Public Health law. If you continue you may have access to information: Regarding HIV / AIDS; Provided by facilities licensed or operated by the [facility] Office of Mental Health; or Provided by the [facility] Office for People With Developmental Disabilities. If such information is present, then the following [facility] mandated warning applies: This information has been disclosed to you from confidential records which are protected by state law. State law prohibits you from making any further disclosure of this information without the specific written consent of the person to whom it pertains, or as otherwise permitted by law. Any unauthorized further disclosure in violation of state law may result in a fine or penitentiary sentence or both. A general authorization for the release of medical or other information is NOT sufficient authorization for further disc losure. Family History Family Member Name Family Member Gender Family Member Status Date o f Status Description Data Source(s) Unknown Female Problem [facility] ([facility] Immunizations Vaccine Date Status Description Data Source(s) COVID-19 VACCINE [facility] 08/04/2020 12:00:00 AM EST completed [facility] Vaccine Series Complete: YESThis Data wa s Submitted to [facility] Via [employer]. COVID-19 VACCINE [facility] 07/14/2020 12:00:00 AM EST completed [facility] Vaccine Series Complete: NOThis Data was Submitted to [facility] Via [employer]. Medications No Information Insurance Providers Payer name Policy type / Coverage type Policy ID Covered democrat ID Covered democrat's relationship to lucero Policy Lucero Plan Information MEDICARE 4 [id number] A MEDICARE [id number] SP [id number] A Medicare Natl Gov't Servi Medicare Primary .[id number] Self MEDICARE [id number] SP [id number] Medicare (Part B) Medicare Primary [id number] Self [id number] Medicare Medicare Primary [id number] Self MEDICARE A [id number] Self [id number] Medicare (Part B) Medicare Primary [id number] Self [facility] [place] [id number] Self [id number] [facility] [id number] SP [id number] [facility] Commercial [id number] Self [id number] Medicare Dme Medigap Part B [id number] .[id number] Self [id number] Medicare Medicare Primary [id number] 2.16.840.1.773050.3.227. 99.936.44717.0 Self [id number] [employer] Medigap Part B [id number] 2.16.840.1.808482.3.227.99.936.2107 5.0 Self [id number] [employer] Commercial [id number] 2.16.840.1.638637.3.227.99.1037.48798.0 Self [id number] Medicare Part B Medicare Primary [id number] 2.16.840.1.971487.3.227.99.1037.08373.0 Self [id number] [employer] Medigap Part B [id number] 2.16.840.1.567244.3.227.99.2809.314 04.0 Self [id number] [place] Primary [id number] 2.16840.1.043736.3.227.99.2809.76769.0 Self [id number] [employer] Medigap Part B [id number] 2.16840.1.016380.3.227.99.2809.314 04.0 Self [id number] [place] Medicare Primary [id number] 2.16.840.1.023593.3.227.99.2809.86791.0 Self [id number] Medicare Dme Medigap Part B [id number] 2.16.840.1.200185.3.227.99 .936.36248.0 Self [id number] Medicare Medicare Primary [id number] 2.16.840.1.128752.3.227. 99.936.38359.0 Self [id number] [employer] Medigap Part B [id number] 2.16840.1.762351.3.227.99.2809.314 04.0 Self [id number] [place] Medicare Primary [id number] 2.16840.1.739614.3.227.99.2809.62095.0 Self [id number] [employer] Commercial [id number] 2.16840.1.044898.3.227.99.1037.24201.0 Self [id number] Medicare Part B Medicare Primary [id number] 2.16840.1.786766.3.227.99.1037.20347.0 Self [id number] Medicare Dme Medigap Part B [id number] 2.16840.1.244648.3.227.99 .936.81135.0 Self [id number] Medicare Medicare Primary [id number] 2.16840.1.737409.3.227. 99.936.96603.0 Self [id number] [employer] Commercial [id number] 2.0.1.943727.3.227.99.1037.37484.0 Self [id number] Medicare Part B Medicare Primary [id number] 2.0.1.856357.3.227.99.1037.72292.0 Self [id number] [employer] Medigap Part B [id number] 2.0.1.616113.3.227.99.2809.314 04.0 Self [id number] [place] Medicare Primary [id number] 2.0.1.846141.3.227.99.2809.96555.0 Self [id number] [employer] [id number] Medicare Dme Medigap Part B [id number] 2.0.1.881589.3.227.99 .936.53788.0 Self [id number] Medicare Medicare Primary [id number] 2.16840.1.890530.3.227. 99.936.59780.0 Self [id number] [employer] Medigap Part B [id number] 2.0.1.307559.3.227.99.2809.314 04.0 Self [id number] [place] Medicare Primary [id number] 2.16840.1.426229.3.227.99.2809.35779.0 Self [id number] Medicare Medigap Part B [id number] 2.16840.1.691725.3.227.99.936.2 1075.0 Self [id number] Medicare [facility] [place] Primary [id number] 2.16.840.1.085140.3.227. 99.936.84855.0 Self [id number] [employer] Commercial [id number] 2.16.840.1.851114.3.227.99.1037.09469.0 Self [id number] Medicare Part B Medicare Primary [id number] 2.16.840.1.983538.3.227.99.1037.27333.0 Self [id number] [employer] PHCS Ppo Medigap Part B [id number] 2.160.1.597905.3.227. 99.572.21038.0 Self [id number] [employer] Commercial [id number] 2.16840.1.824905.3.227.99.1037.32855.0 Self [id number] Medicare Part B Medicare Primary [id number] 2.160.1.760765.3.227.99.1037.28283.0 Self [id number] [employer] Medigap Part B [id number] 2.0.1.932772.3.227.99.2809.314 04.0 Self [id number] [place] Medicare Primary [id number] 2.16840.1.436187.3.227.99.2809.20050.0 Self [id number] Medicare Medicare Primary [id number] 2.16840.1.240887.3.227. 99.936.57779.0 Self [id number] [employer] Medigap Part B [id number] 2.16840.1.062579.3.227.99.2809.314 04.0 Self [id number] [place] Medicare Primary [id number] 2.16840.1.642842.3.227.99.2809.21442.0 Self [id number] [employer] Medigap Part B 2.160.1.904760.3.227.99.936.2107 5.0 Self Medicare Medicare Primary 2.16.840.1.274741.3.227.99.936.21 075.0 Self Medicare Part B Medicare Primary [id number] Self [employer] Commercial [id number] Self [employer] Medigap Part B 2.16.840.1.265579.3.227.99.8646.605 5.0 Self [employer] Medigap Part B 2.16.840.1.335708.3.227.99.8646.605 5.0 Self Medicare [place] Medicare Primary 2.16.840.1.26884 3.3.227.99.8646.6055.0 Self [place] Medigap Part B [id number] Self Medicare [facility] Medicare Primary [id number] Self [place] Medigap Part B [id number] Self [employer] Medigap Part B 2.16.840.1.345616.3.227.99.1767.288 3.0 Self [employer] [id number] SP [id number] Medicare Medicare Primary [id number] Self SELFPAY 5 UNAVAILABLE 1 UNAVAILA BLE [id number] A [id number] R [facility] [id number] SP [id number] SELF PAY R [facility] [id number] SP [id number] Medicare Dme Medigap Part B [id number] 2.840.1.958663.3.227.99 .936.99317.0 Self [id number] r Commercial [id number] 2.840.1.415926.3.227.99.936.10562.0 Self [id number] Medicare Medicare Primary [id number] 2.16.840.1.535349.3.227. 99.936.38891.0 Self [id number] Medicare Part B Medicare Primary [id number] 2.16.840.1.975982.3.227.99.1037.81469.0 Self [id number] Medicare Dme Medigap Part B [id number] 2.16.840.1.058263.3.227.99 .936.47755.0 Self [id number] [facility] Commercial [id number] 2.16.840.1.542522.3.227.99.936.74721.0 Self [id number] Medicare Medicare Primary [id number] 2.16.840.1.895625.3.227. 99.936.34198.0 Self [id number] Medicare Part B Medicare Primary [id number] 2.16.840.1.651234.3.227.99.1037.94111.0 Self [id number] Problems, Conditions, and Diagnoses No Information Surgeries/Procedures No Information Results ID Date Data Source [id number] 05/03/2021 07:29:00 AM EDT [facility] Name Value Range Interpretation Code Description Data Valentine rce(s) Supporting Document(s) SARS coronavirus 2 RNA [Presence] in Res piratory specimen by AFTAB with probe detection POSITIVE [facility] This lab was ordered by [facility] a nd reported by [facility]. ID Date Data Source [id number] 04/29/2021 12:00:00 AM EDT [facility] Name Value Range Interpretation Code Description Data Valentine rce(s) Supporting Document(s) SARS coronavirus 2 Ag NEGATIVE [facility] This lab was ordered by [facility] and reported by [facility]. ID Date Data Source [id number] 04/27/2021 10:00:00 AM EDT [facility] Name Value Range Interpretation Code Description Data Valentine rce(s) Supporting Document(s) SARS coronavirus 2 RNA [Presence] in Res piratory specimen by AFTAB with probe detection NEGATIVE [facility] This lab was ordered by [facility] a nd reported by [facility]. ID Date Data Source [id number] 04/26/2021 12:00:00 AM EDT [facility] Name Value Range Interpretation Code Description Data Valentine rce(s) Supporting Document(s) SARS coronavirus 2 Ag NEGATIVE [facility] This lab was ordered by [facility] and reported by [facility]. ID Date Data Source [id number] 04/12/2021 12:00:00 AM EDT [facility] Name Value Range Interpretation Code Description Data Valentine rce(s) Supporting Document(s) SARS coronavirus 2 Ag NEGATIVE [facility] This lab was ordered by [facility] and reported by [facility]. ID Date Data Source [id number] 04/07/2021 12:00:00 AM EDT [facility] Name Value Range Interpretation Code Description Data Valentine rce(s) Supporting Document(s) SARS coronavirus 2 Ag NEGATIVE [facility] This lab was ordered by [facility] and reported by [facility]. ID Date Data Source [id number] 03/24/2021 03:00:00 PM EDT [facility] Name Value Range Interpretation Code Description Data Valentine rce(s) Supporting Document(s) SARS coronavirus 2 Ag [facility] This lab was ordered by [facility] and reported by [facility]. ID Date Data Source [id number] 12/10/2020 12:00:00 AM EDT [facility] Name Value Range Interpretation Code Description Data Valentine rce(s) Supporting Document(s) SARS coronavirus 2 Ag NEGATIVE [facility] This lab was ordered by [facility] and reported by [facility]. ID Date Data Source [id number] 11/23/2020 12:00:00 AM EDT [facility] Name Value Range Interpretation Code Description Data Valentine rce(s) Supporting Document(s) SARS coronavirus 2 Ag NEGATIVE [facility] This lab was ordered by [facility] and reported by [facility]. ID Date Data Source [id number] 09/23/2020 07:13:00 AM EDT [facility] Name Value Range Interpretation Code Description Data Valentine rce(s) Supporting Document(s) SARS coronavirus 2 RNA Not Detected [facility] This lab was ordered by [facility] and reported by [facility]. ID Date Data Source [id number] 09/16/2020 07:00:00 AM EST [facility] Name Value Range Interpretation Code Description Data Valentine rce(s) Supporting Document(s) SARS coronavirus 2 RNA Not Detected [facility] [place] This lab was ordered by [facility] and reported by [facility]. ID Date Data Source [id number] 09/02/2020 10:30:00 AM EST [facility] Name Value Range Interpretation Code Description Data Valentine rce(s) Supporting Document(s) SARS coronavirus 2 RNA Not Detected [facility] [place] This lab was ordered by [facility] and reported by [facility]. ID Date Data Source [id number] 08/26/2020 07:00:00 AM EST [facility] Name Value Range Interpretation Code Description Data Valentine rce(s) Supporting Document(s) SARS coronavirus 2 RNA Not Detected [facility] [place] This lab was ordered by [facility] and reported by [facility]. ID Date Data Source [id number] 08/05/2020 07:30:00 AM EST [facility] Name Value Range Interpretation Code Description Data Valentine rce(s) Supporting Document(s) SARS coronavirus 2 RNA Not Detected [facility] [place] This lab was ordered by [facility] and reported by [facility]. ID Date Data Source [id number] 07/22/2020 09:00:00 AM EST [facility] Name Value Range Interpretation Code Description Data Valentine rce(s) Supporting Document(s) SARS coronavirus 2 RNA Not Detected [facility] [place] This lab was ordered by [facility] and reported by [facility]. ID Date Data Source [id number] 07/08/2020 09:00:00 AM EST [facility] Name Value Range Interpretation Code Description Data Valentine rce(s) Supporting Document(s) SARS coronavirus 2 RNA [facility] This lab was ordered by [facility] and reported by [facility]. ID Date Data Source [id number] 07/01/2020 11:00:00 AM EST [facility] Name Value Range Interpretation Code Description Data Valentine rce(s) Supporting Document(s) SARS coronavirus 2 RNA [facility] This lab was ordered by [facility] and reported by [facility]. ID Date Data Source [id number] 06/24/2020 08:00:00 AM EST [facility] Name Value Range Interpretation Code Description Data Valentine rce(s) Supporting Document(s) SARS coronavirus 2 RNA [facility] This lab was ordered by [facility] and reported by [facility]. ID Date Data Source [id number] 06/17/2020 10:00:00 AM EST [facility] Name Value Range Interpretation Code Description Data Valentine rce(s) Supporting Document(s) SARS-CoV-2 (COVID 19) [facility] This lab was ordered by [facility] a nd reported by [facility]. ID Date Data Source [id number] 06/10/2020 09:30:00 AM EST [facility] Name Value Range Interpretation Code Description Data Valentine rce(s) Supporting Document(s) SARS coronavirus 2 RNA [facility] This lab was ordered by [facility] and reported by [facility]. ID Date Data Source [id number] 06/03/2020 09:00:00 AM EST [facility] Name Value Range Interpretation Code Description Data Valentine rce(s) Supporting Document(s) SARS coronavirus 2 RNA [facility] This lab was ordered by [facility] and reported by [facility]. ID Date Data Source [id number] 05/27/2020 10:00:00 AM EST [facility] Name Value Range Interpretation Code Description Data Valentine rce(s) Supporting Document(s) SARS coronavirus 2 RNA [facility] This lab was ordered by [facility] and reported by [facility]. Procedure Social History No Information
--- NOTE | 2021-05-14 22:44 | IPNPDOC ---
Text Note Date of Service Significant event NOTE Patient agitated during lab draw. Despite soft restraints challenge to obtain lab draw reportedly. Patient pulled out needle and jerking around during attempt. Lab was able to get a small amount green top and will see if enough. Attempts for lab work later hopefully when patient called. Will offer as needed for agitation. VS,Fishbone, I+O VS, Fishbone, I+O Laboratory Tests 05/14/21 12:20 05/14/21 16:26 Vital Signs Date Time Temp Pulse Resp B/P (MAP) Pulse Ox O2 Delivery O2 Flow Rate FiO2 05/14/21 22:00 98.8 86 24 158/70 93 Room Air PATRICIA MONDRAGON NP May 14, 2021 22:44
[2021-05-14] MEDS ORDERED: OLANZapine INTRAMUSCULAR 10MG VIAL IM PRN (22:45)
[2021-05-15] VITALS (7 sets, daily range): BP systolic 135–163; BP diastolic 56–63; O2SAT 75–95
[2021-05-15] MEDS ORDERED: VANCOMYCIN HCL 500 MG in D5W MINI-BAG PLUS 100 ML IV ONE (00:10)
[2021-05-15] MEDS ORDERED: ALBUTEROL SULFATE 2.5 MG/0.5 ML INH NEB SOLN NEB PRN (00:25)
[2021-05-15 00:39] LABS: ABG BASE EXCESS -8.7 (-2.0-2.0); ABG HCO3 14.5 MEQ/L (22.0-26.0); ABG O2 SATURATION 90.1 % (95.0-99.0); ABG PARTIAL PRESSURE CO2 23.5 mmHg (35.0-45.0); ABG PARTIAL PRESSURE O2 55.5 mmHg (75.0-100.0); ABG STANDARD HCO3 17.3 MEQ/L (22.0-26.0); ABG TOTAL CO2 15.2 MEQ/L (23.0-31.0); ABG pH (ARTERIAL) 7.408 UNITS (7.350-7.450)
[2021-05-15] MEDS ORDERED: CEFEPIME HCL 1 GM in D5W MINI-BAG PLUS 50 ML IV SCH (03:00)
[2021-05-15] MEDS: COMBIVENT RESPIMAT 100-20MCG INHALER 4GM INH SCH ×2 (03:01)
[2021-05-15] MEDS ORDERED: VANCOMYCIN HCL 750 MG, VIAL MATE ADAPTER 1 EACH in NS 250 ML IV SCH (04:00)
[2021-05-15] MEDS: HumaLOG INSULIN (NovoLOG) PER UNIT SC SCH ×2 (06:00)
[2021-05-15 06:45] LABS: HEMATOCRIT 24.4 % (42.0-52.0); HEMOGLOBIN 8.3 g/dl (13.5-17.5); MEAN CORPUSCULAR HEMOGLOBIN 30.6 pg (27.0-33.0); PLATELET COUNT, AUTOMATED 293 10^3/uL (150-450); RED BLOOD COUNT 2.71 10^6/uL (4.30-6.10); WHITE BLOOD COUNT 15.1 10^3/uL (4.0-10.0)
[2021-05-15 07:01] LABS: INR 1.28; PROTHROMBIN TIME 16.4 SECONDS (12.7-14.5)
[2021-05-15 07:02] LABS: FIBRINOGEN 377 MG/DL (268-480); PARTIAL THROMBOPLASTIN TIME 39.6 SECONDS (25.9-37.0)
[2021-05-15 07:14] LABS: ALBUMIN 1.8 GM/DL (3.2-5.2); BILIRUBIN,TOTAL 0.3 MG/DL (0.2-1.0); C REACTIVE PROTEIN QUANTITATIV 11.6 MG/DL (0.00-0.30); CALCIUM LEVEL 10.3 MG/DL (8.8-10.2); CREATININE FOR GFR 2.17 MG/DL (0.70-1.30); GLOMERULAR FILTRATION RATE 30.9 (>35); POTASSIUM SERUM 3.5 MEQ/L (3.5-5.1); TOTAL PROTEIN 4.9 GM/DL (6.4-8.2); TROPONIN I 0.23 NG/ML (< 0.10)
[2021-05-15 07:50] LABS: D-DIMER QUANT > 4000 ng/ml (<500)
[2021-05-15] MEDS ORDERED: HALOPERIDOL 5MG/ML VIAL (J1630 PER 1) IV PRN (08:35)
[2021-05-15] MEDS ORDERED: ATROPINE SULFATE 1% OP SOLN 2 ML BTL SL PRN (08:50)
[2021-05-15] MEDS ORDERED: SCOPOLAMINE 1MG TRANSDERMAL PATCH TOP PRN (08:50)
[2021-05-15] MEDS ORDERED: ONDANSETRON 4MG/2ML VIAL IV PRN (08:50)
[2021-05-15] MEDS ORDERED: MORPHINE 2 MG/ML 1ML VIAL (J2270) IV PRN (08:50)
[2021-05-15] MEDS: LORazepam 2 MG/ML VIAL IV PRN ×2 (12:45→18:06)
--- NOTE | 2021-05-15 13:46 | IPNPDOC ---
Date Seen The patient was seen on 05/15/21. Progress Note SUBJECTIVE: Upon arrival last evening to [facility], the patient was noted to be hypoxic. ABG showed P PaO2 55. He required increased oxygen demand throughout the evening and when I came in this morning he was on 15 L nonrebreather. Labs appeared worsened, he was increasingly agitated and needed to be chemically restrained with Haldol. Due to overall worsening status and maximized on oxygen support, I spoke with his daughter and healthcare proxy Guy. Options for further treatment were given to her including making comfort measures only. Questions were answered. Ultimately the decision was made to withdraw treatment and switch to comfort measures only. New MOLST form was completed and placed in chart. OBJECTIVE: PHYSICAL EXAMINATION: VS:Please plan below CONSTITUTIONAL: agitated in bed, not engaging in conversation with me, pale EYES: PERRLA, EOM intact HENT, MOUTH: Normocephalic, atraumatic, moist mucous membranes NECK: SUPPLE, no JVD, no lymphadenopathy, no carotid bruit CV: Regular rate and rhythm, S1S2 normal, no murmurs/rubs/gallops RESPIRATORY: Clear to auscultation bilaterally, no rales/rhonchi/wheezes GI: thin abdomen, BS positive in 4 quadrants, soft, nontender, nondistended, no rebound or guarding, no organomegaly : Deferred MUSCULOSKELETAL: thin ext, normal ROM. No cyanosis, clubbing, swelling, joint deformity, extremity edema INTEGUMENTARY: Intact, no rashes, no lesions, no erythema NEUROLOGIC: unable to assess cranial Nerves II-XII, no focal deficits PSYCHIATRIC: unable to assess LABORATORY DATA: Please see below IMAGING: CXR: Diffuse bilateral infiltrates have increased since the prior study, right greater than left. Echocardiogram: 1. Mild aortic valve sclerosis of a 3-cusp aortic valve. No aortic stenosis or regurgitation. 2. Normal left ventricle internal dimensions and wall thickness. Normal regional left ventricular (LV) wall motion and wall thickening. Normal LV systolic function. Left ventricular ejection fraction (LVEF) 60% by visual estimate. Grade 1 LV diastolic dysfunction. 3. Mild dilatation of the aortic root at the level of the sinus of Valsalva (3.8 cm). 4. Mild mitral annular calcification. No mitral regurgitation. 5. Moderately technically difficult echocardiogram. ASSESSMENT: 86-year-old male with PMH of COVID-19 infection (initially diagnosed 05/03/21), dementia with behavioral disturbance, hypertension, CKD stage IV, anemia, diabetes mellitus, secondary hyperparathyroidism, coronary artery disease, major depressive disorder, hyperlipidemia, osteoporosis admitted for COVID-19 infection with superimposed pneumonia, sepsis, acute metabolic encephalopathy 2/2 to pneumonia with underlying dementia. DIAGNOSES AT TIME OF MAKING HOSE TURNER: Acute hypoxic respiratory failure secondary to COVID-19, Coronavirus Oc43, Enterovirus/Rhinovirus, superimposed healthcare associated pneumonia Sepsis 2/2 to COVID-19, Coronavirus Oc43, Enterovirus/Rhinovirus, superimposed healthcare associated pneumonia Acute metabolic encephalopathy 2/2 to pneumonia with underlying dementia Elevated troponin 2/2 ischemic demand (presence of sepsis, CHF) vs. developing ACS HFpEF with exacerbation DM type II CKD Stage IV Hypercalcemia with hx of secondary hyperparathyroidism CAD HTN Anemia of chronic disease/RUBY Dementia with behavioral disturbance DISPOSITION: Admitted to COVID floor. Made HOSE TURNER today. Focus on comfort, pain control. At this time there is no mention of wanting Hospice care. Made ALC status. VS, I&O, 24H, Fishbone Vital Signs/I&O Vital Signs Date Time Temp Pulse Resp B/P (MAP) Pulse Ox O2 Delivery O2 Flow Rate FiO2 05/15/21 08:00 95.4 62 18 157/60 (92) 100 Venturi Mask 50 05/15/21 05:08 15.0 I&O- Last 24 Hours up to 6 AM 05/15/21 06:00 Intake Total 1050 ml Output Total 0 ml Balance 1050 ml Laboratory Data 24H LABS Laboratory Tests 2 05/14/21 16:26: Immature Granulocyte % (Auto) 4.3H, Neutrophils (%) (Auto) 85.2H, Lymphocytes (%) (Auto) 2.9L, Monocytes (%) (Auto) 6.0, Eosinophils (%) (Auto) 1.2, Basophils (%) (Auto) 0.4, Neutrophils # (Auto) 15.7H, Lymphocytes # (Auto) 0.5L, Monocytes # (Auto) 1.1H, Eosinophils # (Auto) 0.2, Basophils # (Auto) 0.1, Nucleated Red Blood Cells % (auto) 0.1H, Troponin I 0.18H, QD-Fzi-Y-Type Natriuretic Peptide 8317H, Procalcitonin 0.24 05/14/21 22:15: Troponin I 0.18H 05/14/21 23:45: Urine Color YELLOW, Urine Appearance CLOUDYH, Urine pH 5.0, Urine Specific [place] 1.011, Urine Protein 1+H, Urine Glucose (UA) 1+H, Urine Ketones NEGATIVE, Urine Blood 3+H, Urine Nitrite NEGATIVE, Urine Bilirubin NEGATIVE, Urine Urobilinogen 0.2, Urine Leukocyte Esterase NEGATIVE, Urine WBC (Auto) 0, Urine RBC (Auto) TNTCH, Urine Hyaline Casts (Auto) 0, Urine Bacteria (Auto) NEGATIVE, Urine Squamous Epithelial Cells 1, Urine Sperm (Auto) , Methicillin- Resist S.aureus DNA PCR NOT DETECTED 05/14/21 23:58: Bedside Glucose (Misc Panel) 162H 05/15/21 00:25: Blood Gas Bicarbonate Standard 17.3L, Arterial Blood pH 7.408, Arterial Blood Partial Pressure CO2 23.5L, Arterial Blood Partial Pressure O2 55.5L, Arterial Blood Total CO2 15.2L, Arterial Blood HCO3 14.5L, Arterial Blood Base Excess - 8.7L, Arterial Blood Oxygen Saturation 90.1L 05/15/21 05:47: Bedside Glucose (Misc Panel) 151H 05/15/21 06:01: Nucleated Red Blood Cells % (auto) 0.0, Prothrombin Time 16.4H, Prothromb Time International Ratio 1.28, Activated Partial Thromboplast Time 39.6H, Fibrinogen 377, D-Dimer, Quantitative > 4000H, Anion Gap 6L, Glomerular Filtration Rate 30.9L, Calcium Level 10.3H, Magnesium Level 2.0, Ferritin 224, Total Bilirubin 0.3, Aspartate Amino Transf (AST/SGOT) 21, Alanine Aminotransferase (ALT/SGPT) 28, Alkaline Phosphatase 89, Lactate Dehydrogenase 291H, Troponin I 0.23#H, C- Reactive Protein, Quantitative 11.60H, VP-Els-P-Type Natriuretic Peptide 8542H, Total Protein 4.9L, Albumin 1.8#L, Albumin/Globulin Ratio 0.6 CBC/BMP Laboratory Tests 05/14/21 16:26 05/15/21 06:01 Microbiology Microbiology 05/14/21 Respiratory Virus Panel (PCR) ([facility]) - Final, Complete SARS-CoV-2 (COVID 19) Coronavirus Oc43 Human Rhinovirus/Enterovirus 05/14/21 Blood Culture - Preliminary, Resulted No growth after 24 hours . All specim... 05/14/21 Blood Culture - Preliminary, Resulted No growth after 24 hours . All specim... Nisa Gaona MD May 15, 2021 13:46
--- NOTE | 2021-05-16 18:45 | DS.PDOC ---
Discharge Summary General Date of Admission May 14, 2021 at 17:15 Date of Discharge 05/16/21 Attending Physician: Nisa Gaona MD Discharge Summary PROCEDURES PERFORMED DURING STAY: None ADMITTING DIAGNOSES: COVID-19 infection with superimposed healthcare associated pneumonia, sepsis Acute metabolic encephalopathy 2/2 to pneumonia with underlying dementia Elevated troponin r/o ischemic demand (presence of sepsis, CHF) vs. developing ACS HFpEF with exacerbation DM type II CKD Stage IV Hypercalcemia with hx of secondary hyperparathyroidism CAD HTN Anemia of chronic disease/RUBY Dementia with behavioral disturbance DISCHARGE DIAGNOSES: Likely respiratory arrest secondary to COVID-19 infection with superimposed healthcare associated pneumonia Likely cardiac arrest 2/2 to respiratory arrest COVID-19 infection with superimposed healthcare associated pneumonia, sepsis Acute metabolic encephalopathy 2/2 to pneumonia with underlying dementia Elevated troponin 2/2 to ischemic demand (presence of sepsis, CHF) HFpEF with exacerbation DM type II CKD Stage IV Hypercalcemia with hx of secondary hyperparathyroidism CAD HTN Anemia of chronic disease/RUBY Dementia with behavioral disturbance COMPLICATIONS/CHIEF COMPLAINT: Dehydration,Pneumonia,Rhinovirus. HISTORY OF PRESENT ILLNESS: Patient is an 86-year-old male with PMH of COVID-19 infection (initially diagnosed 05/03/21), dementia with behavioral disturbance, hypertension, CKD stage IV, anemia, diabetes mellitus, secondary hyperparathyroidism, coronary artery disease, major depressive disorder, hyperlipidemia, osteoporosis who presented to [facility] emergency room from [facility] with a diagnosis of a worsening bilateral pneumonia and poor IV access per ER physician. The patient had been getting managed for COVID-19 infection with pneumonia as outpatient and labs had continued to get worse. Today his white count was 21,000, he had poor IV access and his altered mental status worsens. His vital signs showed his respiratory rate 32, pulse 87, temperature 96.7, blood pressure 170/73, 91% on room air. They were unable to keep an IV in. He was also noted to be increasingly tachypnea. He was sent over from the [facility] to be further evaluated by the emergency room staff. There is no noted complaint of the patient had chest pain, chills, nausea, vomiting, diarrhea. In the emergency room the patient was saturating at 93% on room air, other vital signs were stable. WBC 18.5, creatinine 2.3 which is close to his baseline. Calcium elevated at 11.5. Initial troponin elevated at 0.20 but later trended down 0.18. Resp panel showed pos for COVID-19, Rhino/enterovirus, coronavirus Oc43. BNP was noted to be elevated at 8,317 and, although he is likely always elevated, this was markedly higher. ECG was unable to be done due to agitation. CXR showed diffuse bilateral infiltrates have increased since the prior study, right greater than left. Procalcitonin was borderline at 0.24, healthcare associated pneumonia abx were started. Patient was evaluated by myself and patient was not engaging in conversation, was resting with the blankets over his head. When asked about symptoms he would not respond. He was ultimately admitted for COVID-19 infection with superimposed pneumonia, sepsis, acute metabolic encephalopathy 2/2 to pneumonia with underlying dementia. HOSPITAL COURSE: Upon arrival last evening to the floor on 05/14/21, the patient was noted to be hypoxic. ABG showed P PaO2 55. He required increased oxygen demand throughout the evening and when I came in the morning of 05/15/21 he was on 15 L nonrebreather. Labs appeared worsened, he was increasingly agitated and needed to be chemically restrained with Haldol. Due to overall worsening status and maximized on oxygen support, I spoke with his daughter and healthcare proxy Guy. Options for further treatment were given to her including making comfort measures only. Questions were answered. Ultimately the decision was made to withdraw treatment and switch to comfort measures only. New MOLST form was completed and placed in chart. Patient ultimately at 20:44 on 05/15/21. PHYSICAL EXAMINATION ON DISCHARGE: Not performed TIME SPENT ON DISCHARGE: 35 minutes. Vital Signs/I&Os Vital Signs Date Time Temp Pulse Resp B/P (MAP) Pulse Ox O2 Delivery O2 Flow Rate FiO2 05/15/21 19:03 16 05/15/21 18:53 Room Air 05/15/21 08:00 95.4 62 157/60 (92) 100 50 05/15/21 05:08 15.0 Microbiology Microbiology 05/14/21 Respiratory Virus Panel (PCR) ([facility]) - Final, Complete SARS-CoV-2 (COVID 19) Coronavirus Oc43 Human Rhinovirus/Enterovirus 05/14/21 Blood Culture - Preliminary, Resulted No Growth after 48 hours. All Specime... 05/14/21 Blood Culture - Preliminary, Resulted No Growth after 48 hours. All Specime... Discharge Medications Scheduled Aspirin (Aspirin EC) 81 Mg Tablet.dr, 81 MG PO DAILY, (Reported) Azithromycin (Azithromycin) 250 Mg Tablet, 250 MG PO DAILY, (Reported) Cinacalcet HCl (Sensipar) 60 Mg Tab, 60 MG PO Q2D, (Reported) Divalproex Sodium (Depakote Sprinkle) 125 Mg Cap.dr.spr, 125 MG PO DAILY, (Reported) Ferrous Sulfate (Ferrous Sulfate) 220 Mg/5 Ml Elixir, 7.3 ML PO BID, (Reported) Isosorbide Mononitrate (Isosorbide Mononitrate ER) 60 Mg Tab.er.24h, 60 MG PO DAILY, (Reported) Lactose-Reduced Food (Ensure Enlive) 237 Ml Liquid, 237 ML PO TID, (Reported) Lisinopril (Lisinopril) 5 Mg Tablet, 5 MG PO DAILY, (Reported) Minoxidil (Minoxidil) 2.5 Mg Tablet, 5 MG PO BID, (Reported) Sennosides (Senna Lax) 8.6 Mg Tablet, 17.6 MG PO DAILY, (Reported) Spironolactone (Spironolactone) 25 Mg Tablet, 25 MG PO DAILY, (Reported) Scheduled PRN Bisacodyl (Bisacodyl) 10 Mg Supp.rect, 10 MG MA DAILY PRN for CONSTIPATION, (Reported) Magnesium Hydroxide (Milk of Magnesia) 400 Mg/5 Ml Oral.susp, 30 ML PO DAILY PRN for CONSTIPATION, (Reported) Allergies Coded Allergies: No Known Allergies (Verified , 07/16/10) Nisa Gaona MD May 16, 2021 18:44
[2021-05-17 13:07] LABS: MYCOPLASMA PNEUMONIAE IgG 558 U/mL (0-99); MYCOPLASMA PNEUMONIAE IgM <770 U/mL (0-769)
== END 2021-05-15 22:05 | disposition expired | DRG 871 ==
LOC: M ED 11:44 → M ED INP 17:15 → M 4MAIN 23:36
PROVIDERS: ADMIT Internal Medicine; ATTEND Internal Medicine
DX: A41.9 Sepsis, unspecified organism (principal); U07.1 COVID-19; J18.9 Pneumonia, unspecified organism; G93.41 Metabolic encephalopathy; I50.33 Acute on chronic diastolic (congestive) heart failure; J96.01 Acute respiratory failure with hypoxia; F03.91 Unspecified dementia, unspecified severity, with behavioral disturbance; I13.0 Hypertensive heart and chronic kidney disease with heart failure and stage 1 through stage 4 chronic kidney disease, or unspecified chronic kidney disease; N18.4 Chronic kidney disease, stage 4 (severe); N25.81 Secondary hyperparathyroidism of renal origin; I24.8 Other forms of acute ischemic heart disease; Z66 Do not resuscitate; D63.1 Anemia in chronic kidney disease; E11.22 Type 2 diabetes mellitus with diabetic chronic kidney disease; I25.10 Atherosclerotic heart disease of native coronary artery without angina pectoris; F32.9 Major depressive disorder, single episode, unspecified; E78.5 Hyperlipidemia, unspecified; M81.0 Age-related osteoporosis without current pathological fracture; Z78.1 Physical restraint status; E83.52 Hypercalcemia; D50.9 Iron deficiency anemia, unspecified; Z51.5 Encounter for palliative care; B34.8 Other viral infections of unspecified site; I46.9 Cardiac arrest, cause unspecified; E86.0 Dehydration; Z79.899 Other long term (current) drug therapy

== ENCOUNTER → 2021-05-14 | Outpatient (REF) | payer MEDICARE, OTHER ==
[2021-05-14 10:14] LABS: MEAN CORPUSCULAR HEMOGLOBIN 30.5 pg (27.0-33.0); MEAN CORPUSCULAR HGB CONC 33.3 g/dl (32.0-36.5); MEAN CORPUSCULAR VOLUME 91.5 fl (80.0-96.0); PLATELET COUNT, AUTOMATED 387 10^3/uL (150-450); RED BLOOD COUNT 3.28 10^6/uL (4.30-6.10); WHITE BLOOD COUNT 21.4 10^3/uL (4.0-10.0)
[2021-05-14 10:42] LABS: CALCIUM LEVEL 11.5 MG/DL (8.8-10.2); CREATININE FOR GFR 2.21 MG/DL (0.70-1.30); GLOMERULAR FILTRATION RATE 30.3 (>35); POTASSIUM SERUM 4.1 MEQ/L (3.5-5.1)
== END ==
LOC: SKLAB5 08:03
PROVIDERS: ATTEND Internal Medicine
DX: U07.1 COVID-19 (principal); Z79.899 Other long term (current) drug therapy